=== PATIENT | female | born 1985 | race Caucasian/White ===

== ENCOUNTER 2016-11-06 18:16 | Emergency (ER) | payer OTHER ==
[2016-11-06 18:35] VITALS: BP 139/84
--- NOTE | 2016-11-06 18:50 | UC ---
Throat Pain/Nasal [place] HPI - HPI Summary HPI Summary: worsening sinus pain and congestion over the past 6 weeks - History of Current Complaint Chief Complaint: UCHeadache Stated Complaint: SINUS ISSUE Time Seen by Provider: 11/06/16 18:39 Hx Obtained From: Patient Hx Last Menstrual Period: <1 WEEK AGO (IUD) ?: No Onset/Duration: Sudden Onset, Lasting Weeks - 6, Still Present Severity: Moderate Pain Scale Used: 0-10 Numeric Cough: None Associated Signs & Symptoms: Positive: Sinus Discomfort, Nasal Discharge, Fever - Allergies/Home Medications Allergies/Adverse Reactions: Allergies Allergy/AdvReac Type Severity Reaction Status Date / Time Amoxicillin Allergy Severe swelling Verified 11/06/16 18:35 of throat Penicillins Allergy Severe Swelling Verified 11/06/16 18:35 Of Face,Lips,& Throat Codeine [From Robitussin-AC] Allergy Intermediate itchy/scratchy Verified 18:35 throat Ethanol [From Robitussin-AC] Allergy Intermediate itchy/scratchy Verified 18:35 throat Guaifenesin Allergy Intermediate itchy/scratchy Verified 11/06/16 18:35 [From Robitussin-AC] throat Doxycycline Allergy Pain Verified 11/06/16 18:35 Morphine Allergy Swelling Verified 11/06/16 18:35 Erythromycin AdvReac Severe swelling Verified 11/06/16 18:35 of face, throat' Ibuprofen AdvReac Severe CAN'T TAKE Verified 11/06/16 18:35 BECAUSE OF CROHN'S Azithromycin AdvReac Mild Nausea Verified 11/06/16 18:35 Home Medications: Home Medications Ibuprofen TAB* [Advil TAB*] 600 mg PO PRN 11/06/16 [History] clonazePAM TAB(*) [Klonopin TAB(*)] PRN 11/06/16 [History] PMH/Surg Hx/FS Hx/Imm Hx Previously Healthy: No Endocrine History Of: Reports: Thyroid Disease - during Denies: Diabetes Cardiovascular History Of: Denies: Cardiac Disorders, Hypertension, Congestive Heart Failure Respiratory History Of: Denies: COPD, Asthma GI/ History Of: Reports: Kidney Stones, Renal Disease - MULTIPLE BOUTS OF RENAL LITHIASES Denies: Ulcer - Surgical History Surgical History: Yes Surgery Procedure, Year, and Place: APPENDECTOMY, CYST ON URETHRA, left KIDNEY STONE left Kidney ABLATION X 3 - Family History Known Family History: Positive: Cardiac Disease, Diabetes, Respiratory Disease - Social History Occupation: Unemployed Lives: With Family Alcohol Use: None Substance Use Type: None Smoking Status (MU): Current Every Day Smoker Type: Cigarettes Amount Used/How Often: 1/2 PPD Length of Time of Smoking/Using Tobacco: 10 Years Have You Smoked in the Last Year: Yes - Immunization History Most Recent Influenza Vaccination: 2014 Most Recent Tetanus Shot: 2009 Most Recent Pneumonia Vaccination: never Hx Tetanus, Diphtheria Vaccination: Yes Vaccination Up to Date: Yes Review of Systems Constitutional: Chills, Fatigue Skin: Negative Eyes: Negative ENT: Nasal Discharge Respiratory: Negative Cardiovascular: Negative Gastrointestinal: Negative Genitourinary: Negative Motor: Negative Neurovascular: Negative Musculoskeletal: Negative Neurological: Negative Psychological: Negative All Other Systems Reviewed And Are Negative: Yes Physical Exam Triage Information Reviewed: Yes Appearance: Well-Nourished, Ill-Appearing - mild, Pain Distress - mild Vital Signs: Initial Vital Signs Temp 96.9 F 11/06/16 18:32 Pulse 65 11/06/16 18:32 Resp 16 11/06/16 18:32 BP 139/84 11/06/16 18:32 Pulse Ox 100 11/06/16 18:32 Vital Signs Reviewed: Yes Eye Exam: Normal Eyes: Positive: Conjunctiva Clear ENT Exam: Normal ENT: Positive: Normal ENT inspection, Hearing grossly normal, Pharynx normal, Nasal congestion, Nasal drainage. Negative: TMs normal, Tonsillar swelling, Tonsillar exudate, Trismus, Muffled/hoarse voice Neck exam: Normal Neck: Positive: Supple, Nontender, No Lymphadenopathy Respiratory Exam: Normal Respiratory: Positive: Chest non-tender, Lungs clear, Normal breath sounds, No respiratory distress, No accessory muscle use Cardiovascular Exam: Normal Cardiovascular: Positive: RRR, No Murmur, Pulses Normal, Brisk Capillary Refill Musculoskeletal Exam: Normal Musculoskeletal: Positive: Strength Intact, ROM Intact, No Edema Neurological Exam: Normal Neurological: Positive: Alert, Muscle Tone Normal Psychological Exam: Normal Skin Exam: Normal Throat Pain/Nasal Course/Dx - Course Assessment/Plan: flonase, levoquin (chosen due to allergies to other antibiodics ) increase fluids, follow with pcp - Differential Dx/Diagnosis Differential Diagnosis/HQI/PQRI: Laryngitis, Otitis Media, Pharyngitis, Sinusitis, URI Provider Diagnoses: Acute Sinusitis Discharge - Discharge Plan Condition: Stable Disposition: HOME Prescriptions: DOXYcycline CAP(*) [DOXYcycline 100MG CAP(*)] 100 mg PO BID #20 cap Levofloxacin [Levaquin] 500 mg PO DAILY #10 tab Patient Education Materials: Sinusitis (ED), How to Use Nasal [place] (ED) Referrals: Carlos Gray MD [Primary Care Provider] - If Needed
== END 2016-11-06 18:55 | disposition home or self-care (01) ==
LOC: UCEAST 18:16
DX: J01.90 Acute sinusitis, unspecified (principal); Z88.5 Allergy status to narcotic agent; Z88.6 Allergy status to analgesic agent; Z88.1 Allergy status to other antibiotic agents; Z88.0 Allergy status to penicillin; Z88.8 Allergy status to other drugs, medicaments and biological substances; F17.210 Nicotine dependence, cigarettes, uncomplicated
CPT/HCPCS: 99212; G0463

== ENCOUNTER 2017-04-18 09:20 | Emergency (ER) | payer OTHER ==
[2017-04-18 09:33] VITALS: BP 122/79
--- NOTE | 2017-04-18 10:13 | UC ---
Cardiac HPI - HPI Summary HPI Summary: complaint of chest pain that started yesterday while she was cleaning and shampooing carpets thought it was her GERD because she was burping - drank a coke and chocolate milk with out relief this morning and the pain is in left side of chest and shoots into her arm constant aching pain nothing makes the pain better or worse denies shortness of breath, diaphoreis, dizziness, nausea denies anxiety but has had many stressful experiences in the last wekk daughter passes 09/2016- oldest daughter currently in counseling for PTSD - History of Current Complaint Hx Obtained From: Patient Chest Pain Location: Left Anterior Character: Dull/Aching, Heaviness Aggravating: Nothing Alleviating: Nothing - Risk Factors Cardiac Risk Factors: Smoking, Family History <Cata Arnold - Last Filed: 04/18/17 10:32> <Yodit Torres - Last Filed: 04/18/17 15:33> - History of Current Complaint Chief Complaint: UCChestPain Stated Complaint: CHEST PAIN Time Seen by Provider: 04/18/17 10:04 - Allergy/Home Medications Allergies/Adverse Reactions: Allergies Allergy/AdvReac Type Severity Reaction Status Date / Time Amoxicillin Allergy Severe swelling Verified 04/18/17 09:34 of throat Penicillins Allergy Severe Swelling Verified 04/18/17 09:34 Of Face,Lips,& Throat Codeine [From Robitussin-AC] Allergy Intermediate itchy/scratchy Verified 09:34 throat Ethanol [From Robitussin-AC] Allergy Intermediate itchy/scratchy Verified 09:34 throat Guaifenesin Allergy Intermediate itchy/scratchy Verified 04/18/17 09:34 [From Robitussin-AC] throat Doxycycline Allergy Pain Verified 04/18/17 09:34 Morphine Allergy Swelling Verified 04/18/17 09:34 Erythromycin AdvReac Severe swelling Verified 04/18/17 09:34 of face, throat' Ibuprofen AdvReac Severe CAN'T TAKE Verified 04/18/17 09:34 BECAUSE OF CROHN'S Azithromycin AdvReac Mild Nausea Verified 04/18/17 09:34 Home Medications: Home Medications ALPRAZolam TAB* [Xanax TAB*] 0.5 mg PO BID PRN 04/18/17 [History Confirmed 04/18] Escitalopram Oxalate [Lexapro 20 mg] 20 mg PO DAILY 04/18/17 [History Confirmed 04/18/17] Mesalamine [Asacol Hd] 800 mg PO TID 04/18/17 [History Confirmed 04/18/17] Pantoprazole Sodium 40 mg PO DAILY 04/18/17 [History Confirmed 04/18/17] PMH/Surg Hx/FS Hx/Imm Hx Previously Healthy: Yes - crohn's disease Endocrine History: Dyslipidemia GI/ History: Gastroesophageal Reflux - Surgical History Surgical History: Yes Surgery Procedure, Year, and Place: APPENDECTOMY, CYST ON URETHRA, left KIDNEY STONE left Kidney ABLATION X 3 - Family History Known Family History: Positive: Cardiac Disease - maternal grandmother and grandfather, Hypertension - mother, Diabetes, Respiratory Disease - Social History Occupation: Employed Full-time Lives: With Family Alcohol Use: None Substance Use Type: None Smoking Status (MU): Current Every Day Smoker Type: Cigarettes Amount Used/How Often: 1/2 PPD Length of Time of Smoking/Using Tobacco: 10 Years Have You Smoked in the Last Year: Yes Cessation Counseling: Patient Advised to Stop - Immunization History Most Recent Influenza Vaccination: 2014 Most Recent Tetanus Shot: 2009 Most Recent Pneumonia Vaccination: never Hx Tetanus, Diphtheria Vaccination: Yes Vaccination Up to Date: Yes <Cata Arnold - Last Filed: 04/18/17 10:32> Review of Systems Constitutional: Negative Skin: Negative Eyes: Negative ENT: Negative Respiratory: Negative Cardiovascular: Chest Pain Gastrointestinal: Negative Genitourinary: Negative Motor: Negative Neurovascular: Negative Musculoskeletal: Other: - left arm pain Neurological: Negative Psychological: Anxious All Other Systems Reviewed And Are Negative: Yes <Cata Arnold - Last Filed: 04/18/17 10:32> Physical Exam Triage Information Reviewed: Yes Appearance: No Pain Distress, Well-Nourished Vital Signs: Initial Vital Signs Temp 98.7 F 04/18/17 09:25 Pulse 77 04/18/17 09:25 Resp 16 04/18/17 09:25 BP 122/79 04/18/17 09:25 Pulse Ox 98 04/18/17 09:25 Vital Signs Reviewed: Yes Eyes: Positive: Conjunctiva Clear ENT: Positive: Pharynx normal, TMs normal Neck: Positive: Supple, No Lymphadenopathy Respiratory: Positive: Lungs clear, Normal breath sounds, No respiratory distress, No accessory muscle use Cardiovascular: Positive: RRR, No Murmur, Pulses Normal, Brisk Capillary Refill Abdomen Description: Positive: Nontender, No Organomegaly, Soft Bowel Sounds: Positive: Present Musculoskeletal: Positive: No Edema, Other: - left side of chest- point tenderness throughout pectoral muscle Neurological: Positive: Alert Psychological Exam: Normal Skin Exam: Normal <Cata Arnold - Last Filed: 04/18/17 10:32> Vital Signs: Initial Vital Signs Temp 98.7 F 04/18/17 09:25 Pulse 77 04/18/17 09:25 Resp 16 04/18/17 09:25 BP 122/79 04/18/17 09:25 Pulse Ox 98 04/18/17 09:25 <Yodit Torres - Last Filed: 04/18/17 15:33> Diagnostics - EKG Cardiac Rhythm: Sinus: Normal Ectopy: None <Mirian Arnoldny - Last Filed: 04/18/17 10:32> - Assessment/Plan Course Of Treatment: exam completed. ECG- shows NSR no ectopy. left chest wall pain reproducible with palpation and movement of left arm. no associated symptoms with cardiac comprimise. discussed ECG not complete cardiac workup and pt states understanding and wants to leave d/t daughter medical appointment. will treat with acetaminophen for muscle pain- pt refuses muscle relaxer. discussed PTSD and anxiety and encouraged pt to take xanax as prescribed for anxiety - Differential Diagnoses - Chest Pain Differential Diagnosis/HQI/PQRI: Acute MD, Lower Respiratory Infection - Clinical Impression Provider Diagnoses: chest wall pain -left pectoral muscle sprain <Cata Arnold - Last Filed: 04/18/17 10:32> Discharge <Cata Arnold - Last Filed: 04/18/17 10:32> <Yodit Torres - Last Filed: 04/18/17 15:33> - Discharge Plan Condition: Stable Disposition: AGAINST MEDICAL ADVICE Patient Education Materials: Musculoskeletal Pain (ED) Referrals: Carlos Gray MD [Primary Care Provider] - Additional Instructions: Take acetaminophen for pain increase rest and fluids If your chest pain returns please go to the emergency department Please review your discharge instructions. If your symptoms do not improve please call your primary care provider or return to urgent care. Attestation Statement User Type: Provider - I was available for consult. This patient was seen by the ERICKSON. The patient was not presented to, seen by, or examined by me. -Carolyn <Yodit Torres - Last Filed: 04/18/17 15:33>
[2017-04-18] MEDS ORDERED: Acetaminophen TAB* 325 MG PO ONE (10:20)
== END 2017-04-18 10:56 | disposition left against medical advice (07) ==
LOC: UCEAST 09:20
DX: R07.89 Other chest pain (principal); S29.011A Strain of muscle and tendon of front wall of thorax, initial encounter; K21.9 Gastro-esophageal reflux disease without esophagitis; F43.10 Post-traumatic stress disorder, unspecified; K50.90 Crohn's disease, unspecified, without complications; E78.5 Hyperlipidemia, unspecified; Z72.0 Tobacco use
CPT/HCPCS: 93005; 99212; A9270-GY; G0463

== ENCOUNTER 2017-07-31 11:35 | Emergency (ER) | payer OTHER ==
[2017-07-31 11:50] VITALS: BP 114/79
--- NOTE | 2017-07-31 12:17 | UC ---
Back Pain HPI - HPI Summary HPI Summary: Patient presents with complaints of three week onset midline lumbar pain that radiates to the right lower lumbar and medial buttock, and recently down the right leg to the knee. 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 She was initially seen and evaluate by her PCP who RX Tramadol which makes her nauseous so she stopped taking them, and baclofen. She states that the pain is not getting any better. She denies incontinence of bowel or bladder, lower extremity weakness. She present today for further evaluation and treatment. She also complains of sinus pain, pressure, and plugging. She complains states sinus pain and headache with sinus pressure she states these symptoms are consistent with sinus infections she has had in the past. - History of Current Complaint Chief Complaint: UCBackPain Stated Complaint: BACK PAIN HEADACHE SINUS ISSUE Time Seen by Provider: 07/31/17 11:54 Hx Obtained From: Patient Hx Last Menstrual Period: Mirena ?: No Onset/Duration: Sudden Onset, Lasting Weeks Timing: Constant Severity Initially: Moderate Severity Currently: Moderate Back Pain: Is Diffuse, Radiates To - right buttock and leg. Character: Sharp, Dull, Aching, Spasmodic, Stiffness Aggravating Factor(s): Movement, Lifting, Bending, Walking Alleviating Factor(s): Rest Associated Signs And Symptoms: Positive: Negative - Risk Factors AAA Risk Factors: Negative TAD Risk Factors: Negative Cauda Equina Risk Factors: Negative Epidural Abscess Risk Factors: Negative - Allergies/Home Medications Allergies/Adverse Reactions: Allergies Allergy/AdvReac Type Severity Reaction Status Date / Time Amoxicillin Allergy Severe swelling Verified 04/18/17 09:34 of throat Penicillins Allergy Severe Swelling Verified 04/18/17 09:34 Of Face,Lips,& Throat Codeine [From Robitussin-AC] Allergy Intermediate itchy/scratchy Verified 09:34 throat Ethanol [From Robitussin-AC] Allergy Intermediate itchy/scratchy Verified 09:34 throat Guaifenesin Allergy Intermediate itchy/scratchy Verified 04/18/17 09:34 [From Robitussin-AC] throat Doxycycline Allergy Pain Verified 04/18/17 09:34 Morphine Allergy Swelling Verified 04/18/17 09:34 Erythromycin AdvReac Severe swelling Verified 04/18/17 09:34 of face, throat' Ibuprofen AdvReac Severe CAN'T TAKE Verified 04/18/17 09:34 BECAUSE OF CROHN'S Azithromycin AdvReac Mild Nausea Verified 04/18/17 09:34 Home Medications: Home Medications Baclofen TAB* [Lioresal TAB*] 1 tab PO Q8HR PRN 07/31/17 [History Confirmed ] traMADol TAB* [Ultram*] 2 tab PO Q12HR PRN 07/31/17 [History Confirmed 07/31/17] PMH/Surg Hx/FS Hx/Imm Hx Previously Healthy: Yes Psychological History: Depression - Surgical History Surgical History: Yes Surgery Procedure, Year, and Place: APPENDECTOMY, CYST ON URETHRA, left KIDNEY STONE left Kidney ABLATION X 3 - Family History Known Family History: Positive: Cardiac Disease - maternal grandmother and grandfather, Hypertension - mother, Diabetes, Respiratory Disease - Social History Occupation: Works From/At Home Lives: With Family Alcohol Use: None Substance Use Type: None Smoking Status (MU): Heavy Every Day Tobacco Smoker Type: Cigarettes Amount Used/How Often: 1 ppd Length of Time of Smoking/Using Tobacco: 10 Years Have You Smoked in the Last Year: Yes - Immunization History Most Recent Influenza Vaccination: 2014 Most Recent Tetanus Shot: 2009 Most Recent Pneumonia Vaccination: never Hx Tetanus, Diphtheria Vaccination: Yes Vaccination Up to Date: Yes Review of Systems Constitutional: Negative Skin: Negative Eyes: Negative ENT: Sinus Congestion, Sinus Pain/Tenderness Respiratory: Negative Cardiovascular: Negative Gastrointestinal: Negative Genitourinary: Negative Motor: Negative Neurovascular: Negative Musculoskeletal: Decreased ROM, Edema, Myalgia Neurological: Negative Psychological: Negative All Other Systems Reviewed And Are Negative: Yes Physical Exam Triage Information Reviewed: Yes Appearance: Well-Appearing Vital Signs: Initial Vital Signs Temp 98.8 F 07/31/17 11:39 Pulse 82 07/31/17 11:39 Resp 16 07/31/17 11:39 BP 114/79 07/31/17 11:39 Pulse Ox 98 07/31/17 11:39 Eye Exam: Normal ENT Exam: Normal ENT: Positive: Nasal congestion, Other: - tenderness to palpation over the maxillary sinuses. Dental Exam: Normal Neck exam: Normal Neck: Positive: 1 Respiratory Exam: Normal Cardiovascular Exam: Normal Abdominal Exam: Normal Musculoskeletal Exam: Normal Musculoskeletal: Positive: Strength Limited @, ROM Limited @, Other: - Back inspection; vertabra are in good aligment with no step-offs of deformities, no arera of eccymosis, erythma or edema. Palpation; tenderness midline at L4-L5, and right medial buttock. ROM; slow guarded movments with position changes. flexion noted approximatly for 30 degress, cannot rotate right or left. Patellar reflexes equal brisk 2+, sensory intact. gait heel-toe. Neurological Exam: Normal Psychological Exam: Normal Skin Exam: Normal Back Pain Course/Dx - Course Course Of Treatment: Patient presents three week s/p traumatic injury of the lumbar spine, xrays were obtained and read by the radiologists as negative, but if symtpoms persist repeate imaging in indicated. Patient was neuro-vasc intact. PT was ordered. Pain managed with baclofen and tyelnol. I recommend follow up with PCP in two days. She also presented with clincial findings consistent with sinusitis and was treated with Bactrim 1 tablet twice daily for 10 days. - Differential Dx/Diagnosis Differential Diagnosis/HQI/PQRI: Strain, Sprain Provider Diagnoses: Acute low back pain Discharge - Discharge Plan Condition: Stable Disposition: HOME Prescriptions: Methylprednisolone [Medrol Dosepak 4 MG*] 1 mg PO .SEE ARIANA INSTRUCTION #1 tab Sulfamethox/Trimethoprim DS* [Bactrim DS 800/160 TAB*] 1 tab PO BID #20 tab Patient Education Materials: Sinusitis (ED), Low Back Strain (ED), Acute Low Back Pain (ED), Lumbar Radiculopathy (ED) Referrals: Carlos Gray MD [Primary Care Provider] -
--- NOTE | 2017-07-31 12:43 | RAD ---
Indication: Back pain post fall 3 weeks ago. Comparison: June 12, 2016 CT. Technique: AP, lateral, and oblique views lumbar sacral spine. Report: Alignment is anatomic. No cortical disruption or trabecular impaction to indicate a vertebral body fracture. Oblique views without evidence for spondylolysis. Preserved disc spaces. Unremarkable paraspinal soft tissue contours. Incidental note of a 4 mm calcification at the level of the upper pole of the LEFT kidney likely a renal stone. Correlation with prior CT limited due to presence of IV contrast. IUD noted. IMPRESSION: No radiographic abnormality of the lumbar sacral spine.
== END 2017-07-31 13:00 | disposition home or self-care (01) ==
LOC: UCEAST 11:35
DX: M54.5 Low back pain (principal); F17.210 Nicotine dependence, cigarettes, uncomplicated; Z88.6 Allergy status to analgesic agent; Z88.1 Allergy status to other antibiotic agents; Z88.5 Allergy status to narcotic agent; Z88.0 Allergy status to penicillin; Z88.8 Allergy status to other drugs, medicaments and biological substances
CPT/HCPCS: 72110; 99212; G0463

== ENCOUNTER 2017-12-28 13:37 | Emergency (ER) | payer OTHER ==
[2017-12-28 13:57] VITALS: BP 117/67
--- OUTSIDE RECORDS SUMMARY | 2017-12-28 14:14 | XMS REPORT ---
:1985 External Reference #:[id number] Author Organization [facility] [employer] [employer] Address [address] [address] Phone [phone] Care Team Providers Name Role Phone Carlos Gray III, MD Primary Care Physician Unavailable Payers Type Date Identification Numbers Payment Provider Subscriber Commercial Policy Number: [id number] [employer] Name: [id number] [address] PayID: [id number] [place] [address] Advance Directives Type Date Description Status Comment Other Directive 10/13/2017 Health Care Proxy Current and Verified Problems Date Description Provider Status Onset: 10/29/2011 Head and neck swelling Carlos Gray M.D. Active Family History Date Family Member(s) Problem(s) Comments General Thyroid Disease General Suicide General Diabetes, Insulin Dependent General Asthma Father due to Suicide () Siblings 8 Siblings ; 3 full siblings, the others DM, 1 with ?kidney problem, with mom in common. 1 full "bone" problem. (+) half sister with sister with hyperthyroidism. 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 fewer cigarettes/day) Began age 13 ETOH Use Rarely consumes alcohol ETOH Use Denies alcohol use Smoking Light tobacco smoker (10 or fewer cigarettes/day) Exercise Type/Frequency 01/25/2014 Exercises regularly runs a couple days weekly; walks most days Allergies, Adverse Reactions, Alerts Date Description Reaction Status Severity Comments 01/30/2012 Penicillin hives active 01/30/2012 Zithromax vomiting active 01/30/2012 Erythromycin active vomiting 10/13/2015 Doxycycline active nausea 05/15/2016 Morphine active swelling and hives 08/15/2009 NKDA inactive Medications Medication Date Status Form Strength Qnty SIG Indications Ordering Provider Alprazolam 11/13/ Active Tablets 1mg 30tab take 10/07-1 F41.3 Sen 2017 s tablet HOLLY Herbert twice daily as needed Hydroxyzine HCL 09/10/ Active Tablets 25mg 60tab 1-2 L29.8 Sen 2016 s tablets by HOLLY Herbert mouth every 6-8 hours as needed Lexapro 01/08/ Active Tablets 20mg 30tab 1 by mouth F41.3 Sen 2016 s every day HOLLY Herbert Flonase Allergy 10/13/ Active Suspension 50mcg/Act 16uni spray 1 J01.90 Sen Relief 2015 ts spray in HOLLY Herbert each nostril twice daily Pantoprazole 08/01/ Active Tablets DR 40mg 30tab 1 by mouth K20.9 Sen Sodium 2014 s every day HOLLY Herbert Tylenol / Active Tablets 325mg as needed Unknown 0000 Mirena / Active IUD placed Unknown 0000 2011 per pt Asacol HD / Active Tablets DR 800mg 1 tab po Bonilla, 0000 three Olivia times Petra, daily PA-C Benadryl / Active Tablets 25mg 1-2 tabs Unknown Allergy 0000 twice a day for itching Bupropion HCL / Active Tablets ER 150mg 2 by mouth Unknown ER (XL) 0000 24HR every day Levofloxacin 08/11/ Hx Tablets 500mg 7tabs one by J01.90 Sen 2016 - mouth HOLLY Herbert 08/18/ daily for 2016 7 days Baclofen 07/25/ Hx Tablets 10mg 60tab take 10/07 Sen 2016 - s tab every HOLLY Herbert 08/11/ 8 hours as 2016 needed for muscle spasm Soma 07/10/ Hx Tablets 250mg 21tab 1 tab by M54.5 Sen 2016 - s mouth HOLLY Herbert 07/22/ three 2017 times a day and at bedtime as needed muscle pain and stiffness Tramadol HCL 07/10/ Hx Tablets 50mg 28tab 1-2 M54.5 Sen 2017 - s tablets HOLLY Herbert 07/22/ every 12 2016 hours as needed for pain. Clonazepam 06/10/ Hx Tablets 0.5mg 15tab 1/2-1 tab F41.9 Remus 2017 - s twice a HOLLY Herbert 06/24/ day as 2017 needed anxiety Levofloxacin 03/27/ Hx Tablets 500mg 7tabs one by J01.90 Remus 2017 - mouth HOLLY Herbert 04/03/ daily for 2016 7 days Temazepam 03/13/ Hx Capsules 15mg 14cap one Remus 2016 - s capsule by HOLLY Herbert 05/08/ mouth at 2016 bedtime as needed for insomnia Buspirone HCL 02/05/ Hx Tablets 5mg 60tab one tablet F41.9 Remus 2016 - s twice HOLLY Herbert 03/07/ daily 2017 Lexapro 11/13/ Hx Tablets 10mg 30tab 1 by mouth F41.3 Remus 2017 - s every day HOLLY Herbert 2016 Xanax 11/13/ Hx Tablets 0.5mg 45tab 1-2 F41.3 Remus 2016 - s tablets HOLLY Herbert 11/13/ twice 2017 daily as needed anxiety Oseltamivir 10/22/ Hx Capsules 75mg 10cap 1 po twice J20.9 Carlos E. Phosphate 2016 - a day for Marina, 12/11/ days M.D. 2017 Klonopin 10/11/ Hx Tablets 0.5mg 30tab 1/2-1 F41.3 Remus 2016 - s tablet by HOLLY Herbert 11/13/ mouth 2017 twice a day as needed anxiety Gabapentin 10/10/ Hx Capsules 100mg 30cap take 1 to Remus 2016 s 3 capsules HOLLY Herbert 10/22/ by mouth 2016 at night Trazodone HCL 09/09/ Hx Tablets 50mg 30tab 1-2 Remus 2015 - s tablets at HOLLY Herbert 10/10/ bedtime as 2017 needed. Ondansetron 06/17/ Hx Tablets 4mg 30tab dissolve R11.2 Sen 2015 - Dispers s one tablet HOLLY Herbert 06/25/ orally 2016 every 8 hours as needed for nausea. Guaifenesin ER 10/13/ Hx Tablets ER 600mg 20tab 1 by mouth J01.90 Haylee 2015 - HR s twice a Andriy, 05/15/ day M.D. 2015 Levofloxacin 10/13/ Hx Tablets 500mg 10tab one by J01.90 Haylee 2015 - s mouth Andriy, 01/14/ daily for .D. 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 2012 06/28/ Hx Tablets 14-0.4mg Carlos Olson Complete 2010 Dereck Gray, M.D. 2011 Tylenol 06/28/ Hx Liquid 500mg/15M Carlos Olson 2010 Dereck Gray, 09/06/ M.D. 2012 Day Time 08/15/ Hx Capsules 10-5-325m prn Carlos Olson Cold/Flu Relief 2008 - shakila Gray, 10/30/ M.D. 2010 Ibuprofen 08/15/ Hx Tablets 200mg 20tab prn Carlos Olson 2008 - s Marina, M.D. 2010 Ibuprofen / Hx Capsules 200mg prn Unknown 0000 - 2012 Cefdinir / Hx Capsules 300mg 20cap 1 po bid Unknown 0000 - s 2013 Prednisone / Hx Tablets 20mg 20tab Take 2 Unknown 0000 - s tablets po 01/25/ bid for 5 2013 days. Hydrocodone/Elias / Hx Tablets 5-500mg 100ta one or two Unknown taminophen 0000 - bs po every 4 01/25/ - 6 hours 2013 prn pain Asacol HD / Hx Tablets DR 800mg 3 tabs Unknown 0000 - three 08/01/ times a 2014 day Azathioprine / Hx Tablets 50mg 90tab 1/2 tab by Unknown 0000 - s mouth 08/01/ every day 2014 Ciprofloxacin / Hx Tablets 500mg Unknown HCL 0000 - 2015 Azathioprine / Hx Tablets 50mg 1 tab Bonilla, 0000 - daily Olivia Petra 2015 VALDO-Kenia Ciprofloxacin / Hx Tablets 250mg one by Unknown HCL 0000 - mouth 10/11/ twice a 2016 day for 5 days Oxycodone HCL / Hx Tablets 5mg 1-2 by Unknown 0000 - mouth four 10/11/ times a 2016 day as needed Mesalamine / Hx Tablets DR 800mg Take One Unknown 0000 - Tablet By 2016 Three Times A Day Lunesta / Hx Tablets 1mg unknown Unknown 0000 - dose 2016 Bupropion HCL / Hx Tablets ER 150mg 60tab 2 by mouth Unknown ER (XL) 0000 - 24HR s every day 2017 Medications Administered in Office Medication Date Status Form Strength Qnty SIG Indications Ordering Provider Influenza Administered Injection Unknown Virus Vaccine 014 Immunizations CPT Code Status Date Vaccine Lot # [id number] Given 10/29/2011 Tdap - Tetanus/Diptheria/Acellular Pertussis [id number] Given 06/28/2011 Influenza Virus 3Yrs & Over [id number] Vital Signs Date Vital Result Comment 12/22/2017 Weight 173.50 lb Heart Rate 80 /min BP Systolic 118 mmHg BP Diastolic 66 mmHg Body Temperature 97.2 F O2 % BldC Oximetry 989 % 11/13/2017 Weight 169.50 lb Heart Rate 69 /min BP Systolic Sitting 118 mmHg BP Diastolic Sitting 78 mmHg O2 % BldC Oximetry 96 % 10/13/2017 Weight 170.00 lb Heart Rate 73 /min BP Systolic 118 mmHg BP Diastolic 80 mmHg Body Temperature 97.9 F O2 % BldC Oximetry 95 % 09/10/2017 Height 59 inches 4'11" Weight 164.00 lb Heart Rate 81 /min BP Systolic Sitting 118 mmHg BP Diastolic Sitting 74 mmHg Body Temperature 97.1 F O2 % BldC Oximetry 96 % BMI (Body Mass Index) 33.1 kg/m2 08/11/2017 Weight 160.50 lb Heart Rate 74 /min BP Systolic Sitting 122 mmHg BP Diastolic Sitting 80 mmHg O2 % BldC Oximetry 97 % 07/10/2017 Weight 160.00 lb Heart Rate 76 /min BP Systolic Sitting 124 mmHg BP Diastolic Sitting 80 mmHg O2 % BldC Oximetry 98 % 06/10/2017 Weight 162.00 lb Heart Rate 71 /min BP Systolic 110 mmHg BP Diastolic 60 mmHg O2 % BldC Oximetry 98 % 05/08/2017 Heart Rate 66 /min BP Systolic Sitting 126 mmHg BP Diastolic Sitting 76 mmHg O2 % BldC Oximetry 98 % 03/27/2017 Weight 153.00 lb Heart Rate 71 /min BP Systolic Sitting 114 mmHg BP Diastolic Sitting 72 mmHg Body Temperature 98.1 F O2 % BldC Oximetry 96 % 03/07/2017 Height 97.6 inches 8'1.60" Weight 153.75 lb Heart Rate 72 /min BP Systolic 120 mmHg BP Diastolic 68 mmHg O2 % BldC Oximetry 92 % BMI (Body Mass Index) 11.3 kg/m2 02/05/2017 Weight 154.75 lb Heart Rate 68 /min BP Systolic 102 mmHg BP Diastolic 66 mmHg Body Temperature 98.1 F O2 % BldC Oximetry 96 % 01/08/2017 Weight 150.00 lb Heart Rate 76 /min BP Systolic Sitting 108 mmHg BP Diastolic Sitting 54 mmHg Body Temperature 98.2 F O2 % BldC Oximetry 98 % 12/11/2016 Weight 149.00 lb Heart Rate 84 /min BP Systolic Sitting 104 mmHg BP Diastolic Sitting 68 mmHg O2 % BldC Oximetry 98 % 11/13/2016 Height 60 inches 5'0" Weight 147.00 lb Heart Rate 86 /min BP Systolic Sitting 124 mmHg BP Diastolic Sitting 86 mmHg O2 % BldC Oximetry 98 % BMI (Body Mass Index) 28.7 kg/m2 10/22/2016 Weight 149.00 lb Heart Rate 98 /min BP Systolic Sitting 126 mmHg BP Diastolic Sitting 74 mmHg Body Temperature 98.7 F O2 % BldC Oximetry 98 % 10/11/2016 Weight 146.00 lb Heart Rate 84 /min BP Systolic Sitting 124 mmHg BP Diastolic Sitting 80 mmHg Respiratory Rate 15 /min Body Temperature 98.5 F O2 % BldC Oximetry 98 % 06/17/2016 Height 60 inches 5'0" Weight 147.75 lb Heart Rate 83 /min BP Systolic 110 mmHg BP Diastolic 78 mmHg Body Temperature 96.9 F O2 % BldC Oximetry 95 % BMI (Body Mass Index) 28.9 kg/m2 05/15/2016 Weight 148.00 lb with shoes Heart Rate 77 /min BP Systolic Sitting 108 mmHg BP Diastolic Sitting 82 mmHg Body Temperature 97.8 F O2 % BldC Oximetry 99 % 02/13/2016 Weight 150.00 lb Heart Rate 81 /min BP Systolic Sitting 116 mmHg BP Diastolic Sitting 78 mmHg Body Temperature 98.1 F 01/15/2016 Height 59 inches 4'11" Weight 150.00 lb Heart Rate 95 /min BP Systolic Sitting 114 mmHg BP Diastolic Sitting 64 mmHg Respiratory Rate 16 /min Body Temperature 98.6 F O2 % BldC Oximetry 96 % BMI (Body Mass Index) 30.3 kg/m2 10/13/2015 Weight 150.75 lb Heart Rate 79 /min BP Systolic Sitting 116 mmHg BP Diastolic Sitting 81 mmHg Body Temperature 98.8 F O2 % BldC Oximetry 98 % 08/01/2015 Height 59 inches 4'11" Weight 152.00 lb Heart Rate 97 /min BP Systolic 100 mmHg BP Diastolic 70 mmHg Body Temperature 98.9 F O2 % BldC Oximetry 98 % BMI (Body Mass Index) 30.7 kg/m2 01/25/2014 Weight 149.00 lb Heart Rate 78 /min BP Systolic Sitting 108 mmHg BP Diastolic Sitting 72 mmHg 09/06/2013 Height 59 inches 4'11" Weight 145.00 lb Heart Rate 96 /min BP Systolic Sitting 110 mmHg BP Diastolic Sitting 88 mmHg Body Temperature 97.9 F BMI (Body Mass Index) 29.3 kg/m2 01/30/2012 Weight 140.00 lb Heart Rate 78 /min BP Systolic Sitting 122 mmHg BP Diastolic Sitting 84 mmHg 10/29/2011 Height 58.5 inches 4'10.50" Weight 134.75 lb Heart Rate 80 /min BP Systolic Sitting 118 mmHg BP Diastolic Sitting 70 mmHg BMI (Body Mass Index) 27.7 kg/m2 07/10/2011 Height 58.5 inches 4'10.50" Weight 158.00 lb Heart Rate 100 /min BP Systolic Sitting 130 mmHg BP Diastolic Sitting 68 mmHg BMI (Body Mass Index) 32.5 kg/m2 06/28/2011 Height 58.75 inches 4'10.75" Weight 154.00 lb Heart Rate 96 /min BP Systolic Sitting 114 mmHg BP Diastolic Sitting 66 mmHg BMI (Body Mass Index) 31.4 kg/m2 05/14/2011 Weight 147.00 lb Heart Rate 90 /min BP Systolic Sitting 116 mmHg BP Diastolic Sitting 70 mmHg 10/30/2010 Weight 143.00 lb Heart Rate 76 /min BP Systolic Sitting 120 mmHg BP Diastolic Sitting 82 mmHg O2 % BldC Oximetry 99 % 08/15/2009 Height 58.5 inches 4'10.50" Weight 141.00 lb Heart Rate 76 /min BP Systolic Sitting 102 mmHg BP Diastolic Sitting 62 mmHg BMI (Body Mass Index) 29.0 kg/m2 Results Test Date Test Result H/L Range Note CBC Auto Diff 06/12/2016 White Blood Count 12.9 10^3/uL High 3.5-10.8 Red Blood Count 4.89 10^6/uL 4.0-5.4 Hemoglobin 14.5 g/dL 12.0-16.0 Hematocrit 43 % 35-47 Mean Corpuscular Volume 88 fL 80-97 Mean Corpuscular Hemoglobin 30 pg 27-31 Mean Corpuscular HGB Conc 34 g/dL 31-36 Red Cell Distribution Width 13 % 10.5-15 Platelet Count 218 10^3/uL 150-450 Mean Platelet Volume 9 um3 7.4-10.4 Abs Neutrophils 11.6 10^3/uL High 1.5-7.7 Abs Lymphocytes 0.6 10^3/uL Low 1.0-4.8 Abs Monocytes 0.6 10^3/uL 0-0.8 Abs Eosinophils 0 10^3/uL 0-0.6 Abs Basophils 0.1 10^3/uL 0-0.2 Abs Nucleated RBC 0 10^3/uL Granulocyte % 90.0 % High 38-83 Lymphocyte % 4.9 % Low 25-47 Monocyte % 4.3 % 1-9 Eosinophil % 0.1 % 0-6 Basophil % 0.7 % 0-2 Nucleated Red Blood Cells % 0 Laboratory test finding 06/12/2016 HCG < 0.60 mIU/mL 1 Comp Metabolic Panel 06/12/2016 Sodium 135 mmol/L 133-145 Potassium 4.0 mmol/L 3.5-5.0 Chloride 106 mmol/L 101-111 Co2 Carbon Dioxide 22 mmol/L 22-32 Anion Gap 7 mmol/L 2-11 Glucose 93 mg/dL 70-100 Blood Urea Nitrogen 8 mg/dL 6-24 Creatinine 0.80 mg/dL 0.51-0.95 BUN/Creatinine Ratio 10.0 8-20 Calcium 9.3 mg/dL 8.6-10.3 Total Protein 6.9 g/dL 6.4-8.9 Albumin 4.2 g/dL 3.2-5.2 Globulin 2.7 g/dL 2-4 Albumin/Globulin Ratio 1.6 1-3 Total Bilirubin 0.40 mg/dL 0.2-1.0 Alkaline Phosphatase 65 U/L 34-104 Alt 48 U/L 7-52 Ast 61 U/L High 13-39 Egfr Non- 83.7 >60 Egfr 107.6 >60 2 Laboratory test finding 06/12/2016 Lipase 23 U/L 11.0-82.0 C Reactive Protein 66.07 mg/L High < 5.00 3 Lactic Acid 0.6 mmol/L 0.5-2.0 4 Blood Culture SEE RESULT BELOW 5 Laboratory test finding 05/16/2016 TSH (Thyroid Stim Horm) 1.46 mcIU/mL 0.34-5.60 CBC Auto Diff 05/16/2016 White Blood Count 9.6 10^3/uL 3.5-10.8 Red Blood Count 4.64 10^6/uL 4.0-5.4 Hemoglobin 13.8 g/dL 12.0-16.0 Hematocrit 41 % 35-47 Mean Corpuscular Volume 88 fL 80-97 Mean Corpuscular Hemoglobin 30 pg 27-31 Mean Corpuscular HGB Conc 34 g/dL 31-36 Red Cell Distribution Width 13 % 10.5-15 Platelet Count 274 10^3/uL 150-450 Mean Platelet Volume 9 um3 7.4-10.4 Abs Neutrophils 6.1 10^3/uL 1.5-7.7 Abs Lymphocytes 2.8 10^3/uL 1.0-4.8 Abs Monocytes 0.5 10^3/uL 0-0.8 Abs Eosinophils 0.1 10^3/uL 0-0.6 Abs Basophils 0.1 10^3/uL 0-0.2 Abs Nucleated RBC 0 10^3/uL Granulocyte % 63.3 % 38-83 Lymphocyte % 29.6 % 25-47 Monocyte % 5.2 % 1-9 Eosinophil % 1.2 % 0-6 Basophil % 0.7 % 0-2 Nucleated Red Blood Cells % 0 Comp Metabolic Panel 05/16/2016 Sodium 137 mmol/L 133-145 Potassium 3.9 mmol/L 3.5-5.0 Chloride 106 mmol/L 101-111 Co2 Carbon Dioxide 23 mmol/L 22-32 Anion Gap 8 mmol/L 2-11 Glucose 112 mg/dL High 70-100 Blood Urea Nitrogen 12 mg/dL 6-24 Creatinine 0.80 mg/dL 0.51-0.95 BUN/Creatinine Ratio 15.0 8-20 Calcium 9.4 mg/dL 8.6-10.3 Total Protein 6.4 g/dL 6.4-8.9 Albumin 4.3 g/dL 3.2-5.2 Globulin 2.1 g/dL 2-4 Albumin/Globulin Ratio 2.0 1-3 Total Bilirubin 0.40 mg/dL 0.2-1.0 Alkaline Phosphatase 49 U/L 34-104 Alt 14 U/L 7-52 Ast 16 U/L 13-39 Egfr Non- 83.7 >60 Egfr 107.6 >60 6 Laboratory test finding 05/16/2016 Vitamin B12 182 pg/mL 180-914 7 Vitamin D Total 25(Oh) 21.8 ng/mL Low 30-50 Laboratory test 11/13/2015 Urine Culture And SEE RESULT BELOW 8 finding Sensitivities Laboratory test 10/09/2015 Rapid Strep Molecular Negative Negative 9 finding Laboratory test 10/09/2015 Throat-Beta Strept SEE RESULT BELOW 10 finding Laboratory test 02/15/2015 Urine Culture SEE RESULT BELOW 11 finding Urine Culture And 12/30/2014 Urine Culture (SEE NOTE) 12 Sensitivities Urine Culture And 02/27/2014 Urine Culture (SEE NOTE) 13 Sensitivities Urine Culture And 11/23/2013 Urine Culture (SEE NOTE) 14 Sensitivities Laboratory test 08/16/2013 O P: (SEE NOTE) 15 finding Giardia/Cryptospor Screen GC/Chlamydia Amplified 08/16/2013 GC/Chlamydia Rna (SEE NOTE) 16 Rna Urine Culture And 08/16/2013 Urine Culture (SEE NOTE) 17 Sensitivities Stool Culture 08/16/2013 Stool Culture (SEE NOTE) 18 Laboratory test 08/10/2012 Magnesium 2.4 mg/dL 1.7-2.6 finding Basic Metabolic Panel 08/10/2012 Sodium 136 mmol/L 133-145 Potassium 4.5 mmol/L 3.5-5.0 Chloride 105 mmol/L 101-111 Co2 Carbon Dioxide 24.0 mmol/L 22-32 Anion Gap 7.0 mmol/L 2-11 Glucose 83 mg/dL 70-100 Blood Urea Nitrogen 9 mg/dL 6-24 Creatinine 0.70 mg/dL 0.50-1.40 BUN/Creatinine Ratio 12.9 8-20 Calcium 9.8 mg/dL 8.1-9.9 Egfr Non- 100.4 >60 Egfr 129.1 >60 19 Laboratory test finding 12/06/2011 Thyroxine Free 0.64 ng/dL 0.61-1.24 TSH 2.08 MIU/ML 0.34-5.60 Basic Metabolic Panel 12/06/2011 Sodium 137 mmol/L 135-145 Potassium 4.6 mmol/L 3.5-5.0 Chloride 105 mmol/L 101-111 Co2 (Carbon Dioxide) 25.0 mmol/L 22-32 Anion Gap 7.0 mmol/L 2-11 20 Glucose 86 mg/dL 70-100 BUN 9 mg/dL 6-24 Creatinine 0.7 mg/dL 0.50-1.40 One Over Creatinine 1.42 BUN/Creatinine Ratio 12.9 8-20 Calcium 9.5 mg/dL 8.1-9.9 eGFR Non- 101.1 > 60 eGFR 130.1 > 60 21 CBC Auto Diff 12/06/2011 White Blood Count 8.2 CUMM 4.8-10.8 Red Cell Count 4.26 CUMM 4.2-5.4 Hemoglobin 13.1 g/dL 12.0-16.0 Hematocrit 38 % 35-47 Mean Corpuscular Volume 90 um3 79-97 Mean Corpuscular Hemoglob 31 pg 27-31 Mean Corpuscular HGB Cone 34 g/dL 32-36 Redcell Distribution WDTH 14 % 10.5-15 Platelet Count 307 CUMM 150-450 Mean Platelet Volume 8.9 um3 7.4-10.4 22 Laboratory test finding 12/06/2011 Magnesium 2.2 mg/dL 1.7-2.6 Manual Differential 12/06/2011 Polysegmented Neutrophil 69 % 38-83 Lymphocyte 27 % 25-47 Monocyte 4 % 0-13 Absolute Neutrophil Count 5.6 RBC Morphology NORMAL Laboratory test finding 10/07/2011 Magnesium 1.6 mg/dL Low 1.7-2.6 Troponin-I 0.01 NG/ML 0-0.06 23 TSH 4.73 MIU/ML 0.34-5.60 Manual Differential 10/07/2011 Polysegmented Neutrophil 66 % 38-83 Lymphocyte 32 % 25-47 Monocyte 1 % 0-13 Eosinophil 1 % 0-6 Absolute Neutrophil Count 5.9 Anisocytosis SLIGHT CBC Auto Diff 10/07/2011 White Blood Count 9.0 CUMM 4.8-10.8 Red Cell Count 3.43 CUMM Low 4.2-5.4 Hemoglobin 10.7 g/dL Low 12.0-16.0 Hematocrit 31 % Low 35-47 Mean Corpuscular Volume 90 um3 79-97 Mean Corpuscular Hemoglob 31 pg 27-31 Mean Corpuscular HGB Cone 35 g/dL 32-36 Redcell Distribution WDTH 14 % 10.5-15 Platelet Count 262 CUMM 150-450 Mean Platelet Volume 8.2 um3 7.4-10.4 24 Comp Metabolic Panel 10/07/2011 Sodium 139 mmol/L 135-145 Potassium 2.9 mmol/L Low 3.5-5.0 Chloride 105 mmol/L 101-111 Co2 (Carbon Dioxide) 26.0 mmol/L 22-32 Anion Gap 8.0 mmol/L 2-11 25 Glucose 127 mg/dL High 70-100 BUN 11 mg/dL 6-24 Creatinine 0.6 mg/dL 0.50-1.40 One Over Creatinine 1.66 BUN/Creatinine Ratio 18.3 8-20 Calcium 10.0 mg/dL High 8.1-9.9 Total Protein 5.7 GM/DL Low 6.2-8.1 Albumin 2.8 GM/DL Low 3.6-5.4 Globulin 2.9 GM/DL 2-4 Albumin/Globulin Ratio 1.0 1-3 Bilirubin Total 0.5 mg/dL 0.4-1.5 26 Alkaline Phosphatase 81 U/L 30-110 Alt (SGPT) 15 U/L 14-54 Ast (Sgot) 20 U/L 12-42 eGFR Non- 120.8 > 60 eGFR 155.4 > 60 27 Throat-Beta Strept 08/08/2011 Throat-Beta Strep NF 28 Culture Urine Culture & 08/08/2011 Urine Culture NG 29 Sensitivi Sensitivi Laboratory test finding 07/10/2011 Thyroxine Free 0.64 ng/dL 0.61-1.24 TSH 0.82 MIU/ML 0.34-5.60 Basic Metabolic Panel 07/10/2011 Sodium 140 mmol/L 135-145 Potassium 3.6 mmol/L 3.5-5.0 Chloride 107 mmol/L 101-111 Co2 (Carbon Dioxide) 24.0 mmol/L 22-32 Anion Gap 9.0 mmol/L 2-11 30 Glucose 75 mg/dL 70-100 BUN 3 mg/dL Low 6-24 Creatinine 0.5 mg/dL Low 0.50-1.40 One Over Creatinine 2.00 BUN/Creatinine Ratio 6.0 Low 8-20 Calcium 9.7 mg/dL 8.1-9.9 eGFR Non- 149.1 > 60 eGFR 191.8 > 60 31 CBC Auto Diff 03/16/2011 White Blood Count 14.2 CUMM High 4.8-10.8 Red Cell Count 4.26 CUMM 4.2-5.4 Hemoglobin 13.0 g/dL 12.0-16.0 Hematocrit 38 % 35-47 Mean Corpuscular Volume 89 um3 79-97 Mean Corpuscular Hemoglob 31 pg 27-31 Mean Corpuscular HGB Cone 34 g/dL 32-36 Redcell Distribution WDTH 13 % 10.5-15 Platelet Count 292 CUMM 150-450 Mean Platelet Volume 8.2 um3 7.4-10.4 32 Manual Differential 03/16/2011 Polysegmented Neutrophil 76 % 38-83 Lymphocyte 21 % Low 25-47 Monocyte 3 % 0-13 Absolute Neutrophil Count 10.7 RBC Morphology NORMAL Comp Metabolic Panel 03/16/2011 Sodium 136 mmol/L 135-145 Potassium 3.8 mmol/L 3.5-5.0 Chloride 107 mmol/L 101-111 Co2 (Carbon Dioxide) 23.0 mmol/L 22-32 Anion Gap 6.0 mmol/L 2-11 33 Glucose 99 mg/dL 70-100 BUN 3 mg/dL Low 6-24 Creatinine 0.40 mg/dL Low 0.50-1.40 One Over Creatinine 2.50 BUN/Creatinine Ratio 7.5 Low 8-20 Calcium 9.4 mg/dL 8.1-9.9 Total Protein 6.3 GM/DL 6.2-8.1 Albumin 3.8 GM/DL 3.6-5.4 Globulin 2.5 GM/DL 2-4 Albumin/Globulin Ratio 1.5 1-3 Bilirubin Total 0.6 mg/dL 0.4-1.5 34 Alkaline Phosphatase 47 U/L 30-110 Alt (SGPT) 57 U/L High 14-54 Ast (Sgot) 49 U/L High 12-42 eGFR Non- 192.9 > 60 eGFR 248.1 > 60 35 Laboratory test finding 03/16/2011 Lipase 37 U/L 22-51 BHCG Quantitative 69891.0 MIU/ML High 0-5 36 C Reactive Protein 1.9 mg/dL High Less Than 0.5 Urinalysis 03/16/2011 Ua Color YELLOW Yellow Appearance-Urine CLEAR Clear Specific [place]-Ur 1.012 1.010-1.030 Esterase-Urine NEGATIVE Negative Nitrite NEGATIVE Negative Uhauyuoefbqh-Ge-QZE NEGATIVE Negative Protein-Urine NEGATIVE Negative PH-Urine 6.5 5-9 Blood-Urine NEGATIVE Negative Ketones-Urine 2+ Negative Bilirubin-Ur NEGATIVE Negative Glucose-Urine NEGATIVE Negative Laboratory test 03/16/2011 Stool For Blood POSITIVE Negative finding Surgical Pathology 03/14/2011 Surgical Pathology 37 <SEE NOTE> Wet Prep 03/14/2011 Wet Prep MODERATE (1 TO 4 38 <SEE NOTE> CBC Auto Diff 03/13/2011 White Blood Count 9.8 CUMM 4.8-10.8 Red Cell Count 3.99 CUMM Low 4.2-5.4 Hemoglobin 12.4 g/dL 12.0-16.0 Hematocrit 35 % 35-47 Mean Corpuscular Volume 89 um3 79-97 Mean Corpuscular Hemoglob 31 pg 27-31 Mean Corpuscular HGB Cone 35 g/dL 32-36 Redcell Distribution WDTH 12 % 10.5-15 Platelet Count 282 CUMM 150-450 Mean Platelet Volume 8.2 um3 7.4-10.4 Gran % 65.9 % 38-83 Lymph % 27.6 % 25-47 Mononuclear % 4.9 % 1-9 Eosinophil % 1.4 % 0-6 Basophil % 0.2 % 0-2 Abs Lymphs 2.7 1.0-4.8 Abs Mononuclear 0.5 0-0.8 Absolute Neutrophil Count 6.5 1.5-7.7 Abs Eosinophils 0.1 0-0.6 Abs Basophils 0 0-0.2 Protime 03/13/2011 Inr 0.95 0.82-1.17 39 Protime 11.2 SEC 10.2-14.8 40 Urinalysis W/Microscopic 03/13/2011 Ua Color YELLOW Yellow Appearance-Urine CLEAR Clear Specific Hudson-Ur 1.004 Low 1.010-1.030 Esterase-Urine TRACE Negative Nitrite NEGATIVE Negative Exsybchozbah-To-CSR NEGATIVE Negative Protein-Urine NEGATIVE Negative PH-Urine 6.0 5-9 Blood-Urine NEGATIVE Negative Ketones-Urine TRACE Negative Bilirubin-Ur NEGATIVE Negative Glucose-Urine NEGATIVE Negative WBC-Urine 3-5 0-5 RBC-Urine 1-3 0-2 Epith Cells-Ur FEW None Bacteria-Urine TRACE None Amorphous Sed-U TRACE None Crystals-Urine (SEE NOTE) None 41 Laboratory test finding 03/13/2011 CG Quantitative 47555.0 MIU/ML High 0 -5 42 Comp Metabolic Panel 03/13/2011 Sodium 137 mmol/L 135-145 Potassium 3.1 mmol/L Low 3.5-5.0 Chloride 106 mmol/L 101-111 Co2 (Carbon Dioxide) 23.0 mmol/L 22-32 Anion Gap 8.0 mmol/L 2-11 43 Glucose 100 mg/dL 70-100 BUN 10 mg/dL 6-24 Creatinine 0.50 mg/dL 0.50-1.40 One Over Creatinine 2.00 BUN/Creatinine Ratio 20.0 8-20 Calcium 9.5 mg/dL 8.1-9.9 Total Protein 6.1 GM/DL Low 6.2-8.1 Albumin 3.9 GM/DL 3.6-5.4 Globulin 2.2 GM/DL 2-4 Albumin/Globulin Ratio 1.8 1-3 Bilirubin Total 0.5 mg/dL 0.4-1.5 44 Alkaline Phosphatase 43 U/L 30-110 Alt (SGPT) 35 U/L 14-54 Ast (Sgot) 30 U/L 12-42 eGFR Non- 149.1 > 60 eGFR 191.8 > 60 45 Type & Screen 03/13/2011 Patient Blood Type AB POSITIVE Antibody Screen NEGATIVE Laboratory test 03/13/2011 PTT (Aptt) 28.1 25.15-38.53 finding Laboratory test 02/25/2011 BHCG Quantitative 77271.0 MIU/ML High 0-5 46 finding CBC No Diff 02/25/2011 White Blood Count 9.8 CUMM 4.8-10.8 Red Cell Count 4.27 CUMM 4.2-5.4 Hemoglobin 12.9 g/dL 12.0-16.0 Hematocrit 38 % 35-47 Mean Corpuscular Volume 89 um3 79-97 Mean Corpuscular Hemoglob 30 pg 27-31 Mean Corpuscular HGB Cone 34 g/dL 32-36 Redcell Distribution WDTH 13 % 10.5-15 Platelet Count 300 CUMM 150-450 Mean Platelet Volume 8.8 um3 7.4-10.4 Bruno Silva Comprehensive 11/26/2010 Ebv Vca Igg Positive Negative Ebv Vca Igm Negative Negative Ebna Positive Negative Ebv Interpretation SEE BELOW () 47 Laboratory test finding 11/26/2010 Monospot NEGATIVE Negative Ursc-1 07/09/2010 Ampicillin <=2 Amikacin <=2 Ciprofloxacin <=0.25 Ceftriaxone <=1 Cefazolin <=4 Nitrofurantoin <=16 Gentamicin <=1 Imipenem <=1 Levofloxacin <=0.12 Trimeth-Sulfa <=20 Ceftazidime <=1 Tigecycline <=0.5 Piperacillin/Tazobactam <=4 Urine Culture 07/09/2010 Urine Culture ESCHERICHIA COLI 48 Sensitivi Sensitivi Urine Culture & 02/01/2010 Urine Culture NF1 49 Sensitivi Sensitivi Urinalysis 02/01/2010 Ua Color YELLOW Yellow W/Microscopic Appearance-Urine CLEAR Clear Specific Hudson-Ur 1.011 1.010-1.030 Esterase-Urine 1+ Negative Nitrite NEGATIVE Negative Oqyxhgzbctfr-Ha-QTB NEGATIVE Negative Protein-Urine NEGATIVE Negative PH-Urine 6.0 5-9 Blood-Urine 3+ Negative Ketones-Urine NEGATIVE Negative Bilirubin-Ur NEGATIVE Negative Glucose-Urine NEGATIVE Negative WBC-Urine 1-3 0-5 RBC-Urine 10-15 0-2 Epith Cells-Ur MODERATE None Bacteria-Urine 2+ None Amorphous Sed-U TRACE None HCG () Urine Stat 02/01/2010 Specific Hudson 1.011 1.010-1.030 Urine NEGATIVE Negative 50 CBC With Manual Diff Stat 02/01/2010 White Blood Count 9.6 CUMM 4.8-10.8 Red Cell Count 4.60 CUMM 4.2-5.4 Hemoglobin 14.4 g/dL 12.0-16.0 Hematocrit 41 % 35-47 Mean Corpuscular Volume 90 um3 79-97 Mean Corpuscular Hemoglob 31 pg 27-31 Mean Corpuscular HGB Cone 35 g/dL 32-36 Redcell Distribution WDTH 12 % 10.5-15 Platelet Count 311 CUMM 150-450 Mean Platelet Volume 7.7 um3 7.4-10.4 Polysegmented Neutrophil 56 % 38-83 Lymphocyte 36 % 25-47 Monocyte 7 % 0-13 Eosenophil 1 % 0-6 Absolute Neutrophil Count 5.3 RBC Morphology NORMAL CMP Panel Stat 02/01/2010 Sodium 137 mmol/L 135-145 Potassium 4.1 mmol/L 3.5-5.0 Chloride 107 mmol/L 101-111 Co2 (Carbon Dioxide) 22.0 mmol/L 22-32 Anion Gap 8.0 mmol/L 2-11 51 Glucose 102 mg/dL High 70-100 52 BUN 10 mg/dL 6-24 Creatinine 0.60 mg/dL 0.50-1.40 One Over Creatinine 1.60 BUN/Creatinine Ratio 16.7 8-20 Calcium 9.2 mg/dL 8.1-9.9 53 Total Protein 7.0 GM/DL 6.2-8.1 Albumin 4.3 GM/DL 3.6-5.4 Globulin 2.7 GM/DL 2-4 Albumin/Globulin Ratio 1.6 1-3 Bilirubin Total 0.4 mg/dL 0.4-1.5 54 Alkaline Phosphatase 57 U/L 30-110 Alt (SGPT) 18 U/L 14-54 Ast (Sgot) 20 U/L 12-42 eGFR Non- 129.5 > 60 eGFR 156.6 > 60 55 Urinalysis W/Microscopic 01/11/2010 Ua Color YELLOW Yellow Appearance-Urine CLEAR Clear Specific Hudson-Ur 1.011 1.010-1.030 Esterase-Urine TRACE Negative Nitrite NEGATIVE Negative Upmdcumgcifc-Et-EXO NEGATIVE Negative Protein-Urine NEGATIVE Negative PH-Urine 6.5 5-9 Blood-Urine 3+ Negative Ketones-Urine NEGATIVE Negative Bilirubin-Ur NEGATIVE Negative Glucose-Urine NEGATIVE Negative WBC-Urine 0-2 0-5 RBC-Urine TNTC 0-2 Mucus Urine SMALL None Epith Cells-Ur FEW None HCG () Urine Stat 01/11/2010 Specific Hudson 1.006 Low 1.010- 1.030 Urine NEGATIVE Negative 56 Throat-Beta Strept 2009 Throat-Beta Strep Culture POSAD 57 1 <5.0 Negative 5.0 - 25.0 Indeterminate (Repeat testing recommended after 72 hours) >25.0 Positive Perimenopausal women can display HCG levels of up to 20 mIU/mL 2 Because ethnic data is not always readily available, this report includes an eGFR for both -Americans and non- Americans. The National Kidney Disease Education Program (NKDEP) does not endorse the use of the MDRD equation for patients that are not between the ages of 18 and 70, are , have extremes of body size, muscle mass, or nutritional status, or are non- or non-. According to the National Kidney Foundation, irrespective of diagnosis, the stage of the disease is based on the level of kidney function: Stage Description GFR(mL/min/1.73 m(2)) 1 Kidney damage with normal or decreased GFR 90 2 Kidney damage with mild decrease in GFR 60-89 3 Moderate decrease in GFR 30-59 4 Severe decrease in GFR 15-29 5 Kidney failure <15 (or dialysis) 3 Acute inflammation: >10.00 4 [facility] Severe Sepsis and Septic Shock Management Bundle Measure requires all lactic acids initially measuring >2.0 mmol/L be repeated. 5 SEE RESULT BELOW Name: SANDRA FELIZ : [address]: Lawanda Honeycutt MD Acct: [id number] Unit: [id number] AGE: 30 Location: [place] [address] Re06/12/16 Dis: 06/15/16 SEX: F Status: DIS Rox SPEC: [id number] JB: 06/12/16-[address] [facility] [address]: Curtis Almazan MD REQ: [id number] RECD: 06/12/16 STATUS: CRUZITO MERCEDES DR: Carlos Gray III, MD _ SOURCE: BLOOD,VENO SPDES: ORDERED: Blood Cult Procedure Result Reported Site Aerobic Culture Bottle Final 06/17/16- 1311 ML No Growth Day 5 Anaerobic Culture Bottle Final 06/17/16- 1311 ML No Growth Day 5 * ML - MAIN LAB ([facility]) . END OF REPORT * ML=Testing performed at Main Lab DEPARTMENT OF PATHOLOGY, [address] [place] [address] Cesario Vera M.D. Director [facility] # [id number] 6 Because ethnic data is not always readily available, this report includes an eGFR for both -Americans and non- Americans. The National Kidney Disease Education Program (NKDEP) does not endorse the use of the MDRD equation for patients that are not between the ages of 18 and 70, are , have extremes of body size, muscle mass, or nutritional status, or are non- or non-. According to the National Kidney Foundation, irrespective of diagnosis, the stage of the disease is based on the level of kidney function: Stage Description GFR(mL/min/1.73 m(2)) 1 Kidney damage with normal or decreased GFR 90 2 Kidney damage with mild decrease in GFR 60-89 3 Moderate decrease in GFR 30-59 4 Severe decrease in GFR 15-29 5 Kidney failure <15 (or dialysis) 7 Normal Range 180 to 914 Indeterminate Range 145 to 180 Deficient Range <145 8 SEE RESULT BELOW Name: SANDRA FELIZ : [address]: Randolph Ortiz MD Acct: [id number] Unit: [id number] AGE: 29 Location: [facility] Re11/13/15 SEX: F Status: DEP ER SPEC: [id number] JB: 11/13/15 [facility] [address]: Randolph Ortiz MD REQ: [id number] RECD: 11/14/15 STATUS: CRUZITO MERCEDES DR: Carlos Gray III, MD _ SOURCE: URINE SPDESC: ORDERED: Urine Culture Procedure Result Reported Site Urine Culture Final 11/15/15- 0849 ML No growth of clinically significant organisms * ML - MAIN LAB ([facility]) . END OF REPORT * ML=Testing performed at Main Lab DEPARTMENT OF PATHOLOGY, [address] [place] [address] Cesario Vera M.D. Director [facility] # [id number] Corrections Counselor: [id number] [address] The authorization manager and regulatory agencies both recommend that a throat culture for beta strep be performed if a Rapid Group A Strep assay yields a negative result. Therefore a culture will be automatically performed on all negative samples. 10 SEE RESULT BELOW Name: SANDRA FELIZ : [address]: Randolph Ortiz MD Acct: [id number] Unit: [id number] AGE: 29 Location: [facility] Re10/09/15 SEX: F Status: DEP ER SPEC: [id number] JB: 10/09/15-0 [facility] [address]: Randolph Ortiz MD REQ: [id number] RECD: 10/10/15 STATUS: CRUZITO MERCEDES DR: Carlos Gray III, MD _ SOURCE: THROAT SPDESC: ORDERED: Throat Beta Str Procedure Result Reported Site Throat Beta Strep Culture Final 10/12/15- 1150 ML Negative For Group A Beta Streptococcus * ML - MAIN LAB ([facility]) . END OF REPORT * ML=Testing performed at Main Lab DEPARTMENT OF PATHOLOGY, [address] [place] [address] Cesario Vera M.D. Director [facility] # [id number] 11 SEE RESULT BELOW Name: SANDRA FELIZ : [address]: Yudelka Hoang Acct: [id number] Unit: [id number] AGE: 29 Location: [facility] Re02/15/15 SEX: F Status: DEP ER SPEC: [id number] JB: 02/15/15-[address]: Yudelka Briceno DO REQ: [id number] RECD: 02/16/15 STATUS: COMP OTHR DR: [facility] Carlos Gray III, MD _ SOURCE: URINE SPDESC: ORDERED: Urine Culture Procedure Result Verified Site Urine Culture Final 02/18/15- 823 ML No Growth Day 2 (<1,000 CFU/mL) * ML - MAIN LAB ([facility]) . END OF REPORT * ML=Testing performed at Main Lab DEPARTMENT OF PATHOLOGY, [facility] [address] [place], [place] [address] Cesario Vera M.D. Director [facility] # [id number] RUN DATE: 01/01/15 [facility] LAB LIVE PAGE 1 RUN TIME: 1393 [facility] [employer] [place], [place] [address] Specimen Inquiry Name: SANDRA FELIZ : [address]: Uriel Cordero MD Acct: [id number] Unit: [id number] AGE: 29 Location: [facility] Re12/30/14 SEX: F Status: DEP ER SPEC: [id number] JB: 12/30/14-[address] [facility] [address]: Giselle Bey NP REQ: [id number] RECD: 12/30/14-1322 STATUS: CRUZITO MERCEDES DR: Uriel Gray III, MD _ SOURCE: URINE SPDESC: ORDERED: Urine Culture Procedure Result Verified Site Urine Culture Final 01/01/15- 1139 ML No Growth Day 2 (<1,000 CFU/mL) * ML - MAIN LAB ([facility]) . END OF REPORT * ML=Testing performed at Main Lab DEPARTMENT OF PATHOLOGY, [facility] [address] [place], [place] [address] Cesario Vera M.D. Director [facility] # [id number] RUN DATE: 03/02/14 [facility] LAB LIVE PAGE 1 RUN TIME: 927 [facility] [employer] [place], [place] [address] Specimen Inquiry Name: SANDRA FELIZ : [address]: Robert Stewart MD Acct: [id number] Unit: [id number] AGE: 28 Location: [facility] Re02/27/14 SEX: F Status: DEP ER SPEC: [id number] JB: 02/27/14-89[address] [facility] [address]: Robert Stewart MD REQ: [id number] RECD: 02/28/14-977 STATUS: CRUZITO MERCEDES DR: Carlos Gray III, MD _ SOURCE: URINE [facility]: ORDERED: Urine Culture Procedure Result Verified Site Urine Culture Final 03/02/14- 927 ML Organism 1 KLEBSIELLA PNEUMONIAE Buckeye Count 10-25,000 (Moderate) CFU/ML Organism 2 NORMAL MARANDA Buckeye Count 1-10,000 (Few) CFU/ML 1. KLEBSIELLA PNEUMONIAE M.I.C. RX --------- ------ Ampicillin >=32 R Cefazolin <=4 S Cefepime <=1 S Ceftriaxone <=1 S Ciprofloxacin <=0.25 S Gentamicin <=1 S Levofloxacin <=0.12 S Meropenem <=0.25 S Nitrofurantoin <=16 S Tetracycline 2 S Pipercillin/Tazobactam <=4 S Trimethoprim/Sulfamethoxazole <=20 S Amoxicillin/Clavulanic Acid <=2 S Aztreonam <=1 S Contact the Microbiology Department for any additional antibiotic reporting. END OF REPORT * ML=Testing performed at Main Lab DEPARTMENT OF PATHOLOGY, [facility] [address] [place], [place] [address] Cesario Vera M.D. Director [facility] # [id number] RUN DATE: 11/26/13 [facility] LAB LIVE PAGE 1 RUN TIME: 902 [facility] [employer] [place], [place] [address] Specimen Inquiry Name: SANDRA FELIZ : [address]: Lilia Jolly MD Acct: [id number] Unit: [id number] AGE: 27 Location: [facility] Re11/23/13 SEX: F Status: DEP ER SPEC: [id number] JB: 11/23/13-1749 [facility] [address]: Lilia Jolly MD REQ: [id number] RECD: 11/24/13-1100 STATUS: CRUZITO MERCEDES DR: Carlos Gray III, MD _ SOURCE: URINE SPDESC: ORDERED: Urine Culture Procedure Result Verified Site Urine Culture Final 11/26/13- 901 ML Organism 1 NORMAL MARANDA Buckeye Count 10-25,000 (Moderate) CFU/ML END OF REPORT * ML=Testing performed at Main Lab DEPARTMENT OF PATHOLOGY, [facility] [address] [place] [address] Cesario Vera M.D. Director [facility] Permit #[id number] RUN DATE: 08/18/13 [facility] LAB LIVE PAGE 1 RUN TIME: 1415 [facility] [employer] [place], [place] [address] Specimen Inquiry Name: SANDRA FELIZ : [address]: Robert Stewart MD Acct: [id number] Unit: [id number] AGE: 27 Location: [facility] Re08/16/13 SEX: F Status: REG ER SPEC: [id number] JB: 08/16/13 [facility] [address]: Giselle Bey NP REQ: [id number] RECD: 08/17/13 STATUS: RES OTHR DR: Robert Gray III, MD _ SOURCE: STOOL SPDESC: ORDERED: Stool Culture, Fecal Lactoferr, O P: Giar/Crypt QUERIES: Medent Number no orange top Procedure Result Verified Site Stool Culture PENDING Stool Specimen Description Final 08/17/13- 1052 ML Test not performed Shiga Toxin 1 2 Final 08/18/13- 1411 ML Organism 1 Negative Shiga Toxin 1 2 Immunochromatographic Assay Fecal Lactoferrin (Stool WBC) Final 08/17/13- 1052 ML Test not performed O P: Giardia/Cryptospor Screen Final 08/18/13- 1415 ML Organism 1 Neg Cryptosporidium/Giardia Giardia and cryptosporidium antigen testing performed by enzyme immunoassay. If patient is immunocompromised or has traveled to or is from a developing country, a full ova and parasite exam with microscopic (OPMIC) is recommended. All samples will be held one month in case full ova and parasite testing is requested. Contact the Microbiology Department at [phone]. TEST LIMITATIONS: As with all diagnostic procedures, the results obtained should be used in conjunction with other clinical CONTINUED ON NEXT PAGE * ML=Testing performed at Main Lab DEPARTMENT OF PATHOLOGY, [facility] [address] [place], [place] [address] Cesario Vera M.D. Director [facility] Permit #[id number] RUN DATE: 08/18/13 [facility] LAB LIVE PAGE 2 RUN TIME: 1415 [facility] [employer] [place], [place] [address] Specimen Inquiry Patient: SANDRA FELIZ [id number] (Continued) Specimen: [id number] Collected: 08/16/13-2099 Received: 08/17/13-1047 (Continued) Procedure Result Verified Site O P: Giardia/Cryptospor Screen Final (continued) 08/18/13- 141 information available the physician. Negative results can occur in samples containing antigen below lower limits of detection of the assay. The use of colonic washes, aspirates or other diluted sample types has not been established and could affect the performance of the assay. Stool samples contaminated with an oily or particulate base (eg. Barium, mineral oil etc.) could interfere with the test and are not recommended. END OF REPORT * ML=Testing performed at Main Lab DEPARTMENT OF PATHOLOGY, [facility] [address] [place], [place] [address] Cesario Vera M.D. Director [facility] Permit #[id number] RUN DATE: 08/20/13 [facility] LAB LIVE PAGE 1 RUN TIME: 4913 [facility] [employer] [place], [place] [address] Specimen Inquiry Name: SANDRA FELIZ : [address]: Robert Stewart MD Acct: [id number] Unit: [id number] AGE: 27 Location: [facility] Re08/16/13 SEX: F Status: REG ER SPEC: [id number] JB: 08/16/13 [facility] [address]: Giselle Bey NP REQ: [id number] RECD: 08/17/13 STATUS: CRUZITO MERCEDES DR: Robert Gray III, MD _ SOURCE: URINE SPDESC: ORDERED: GC/Chlam RNA Procedure Result Verified Site Chlamydia Trachomatis RNA Final 08/20/13- 1333 ML NEGATIVE for Chlamydia trachomatis rRNA GC (N. gonorrhoeae) RNA Final 08/20/13- 1333 ML NEGATIVE for Neisseria gonorrhoeae rRNA A negative result does not preclude the presence of a C. trachomatis or N. gonorrhoeae infection because results are dependent on adequate specimen collection, absence of inhibitors, and sufficient rRNA to be detected. Test results may be affected by improper specimen collection, improper storage, technical error, or specimen mixup. Limitations of the Procedure: The Aptima Combo 2 Assay is not intended for the evaluation of suspected sexual abuse or for other medico-legal indications. For those patients for whom a false positive result may have adverse psychosocial impact, the [facility] recommends retesting by a method using an alternate technology. Therapeutic failure or success cannot be determined with the Aptima Combo 2 Assay since nucleic acid may persist following appropriate antimicrobial therapy. Results from the Aptima Combo 2 Assay should be interpreted in conjunction with other laboratory and clinical data available to the clinican. CONTINUED ON NEXT PAGE * ML=Testing performed at Main Lab DEPARTMENT OF PATHOLOGY, [facility] [address] [place] [id number] Cesario Vera M.D. Director [facility] Permit #[id number] RUN DATE: 08/20/13 [facility] LAB LIVE PAGE 2 RUN TIME: 8913 [facility] [employer] [place], [place] [address] Specimen Inquiry Patient: SANDRA FELIZ [id number] (Continued) Specimen: [id number] Collected: 08/16/13 Received: 08/17/13-115 (Continued) Procedure Result Verified Site GC (N. gonorrhoeae) RNA Final (continued) 08/20/13- 3201 Performance characteristics for detecting C. trachomatis and N. gonorrhoeae are derived from high prevalence populations. Positive results in low prevalence populations should be interpreted carefully with the understanding that the likelihood of a false positive may be higher than a true positive. END OF REPORT * ML=Testing performed at Main Lab DEPARTMENT OF PATHOLOGY, [facility] [address] [place], [place] [address] Cesario Vera M.D. Director [facility] Permit #[id number] RUN DATE: 08/19/13 [facility] LAB LIVE PAGE 1 RUN TIME: 1015 [facility] [employer] [place], [place] [address] Specimen Inquiry Name: SANDRA FELIZ : [address]: Robert Stewart MD Acct: [id number] Unit: [id number] AGE: 27 Location: [facility] Re08/16/13 SEX: F Status: REG ER SPEC: [id number] JB: 08/16/13-[address]99 [facility] [address]: Giselle Bey NP REQ: [id number] RECD: 08/17/13 STATUS: CRUZITO MERCEDES DR: Robert Gray III, MD _ SOURCE: URINE SPDESC: ORDERED: Urine Culture Procedure Result Verified Site Urine Culture Final 08/19/13- 1015 ML Organism 1 NORMAL MARANDA Buckeye Count >100,000 (Many) CFU/ML END OF REPORT * ML=Testing performed at Main Lab DEPARTMENT OF PATHOLOGY, [facility] [address] [place], [place] [address] Cesario Vera M.D. Director [facility] Permit #[id number] RUN DATE: 08/20/13 [facility] LAB LIVE PAGE 1 RUN TIME: 817 [facility] [employer] [place], [place] [address] Specimen Inquiry Name: SANDRA FELIZ : [address]: Robert Stewart MD Acct: [id number] Unit: [id number] AGE: 27 Location: [facility] Re08/16/13 SEX: F Status: REG ER SPEC: [id number] JB: 08/16/13-[address]99 [facility] [address]: Giselle Bey NP REQ: [id number] RECD: 08/17/13 STATUS: CRUZITO MERCEDES DR: Robert Gray III, MD _ SOURCE: STOOL SPDESC: ORDERED: Stool Culture, Fecal Lactoferr, O P: Giar/Crypt QUERIES: Medent Number no orange top Procedure Result Verified Site Stool Culture Final 08/19/13- 1059 ML Result No enteric pathogens isolated Testing for Salmonella, Shigella, Aeromonas, Plesiomonas, Yersinia and Campylobacter are included in a Stool Culture. Vibrio spp not routinely tested for in a stool culture. If testing is desired, please request specifically when placing test order. Sensitivities not routinely performed on stool isolates, as antibiotics may prolong the carriage rate of bacteria. Please contact the microbiology lab if sensitivities are required. Stool Specimen Description Final 08/17/13- 1052 ML Test not performed Shiga Toxin 1 2 Final 08/20/13- 0818 ML Organism 1 Negative Shiga Toxin 1 2 Immunochromatographic Assay Fecal Lactoferrin (Stool WBC) Final 08/17/13- 1052 ML Test not performed O P: Giardia/Cryptospor Screen Final 08/18/13- 1415 ML CONTINUED ON NEXT PAGE * ML=Testing performed at Main Lab DEPARTMENT OF PATHOLOGY, [facility] [address] [place], [place] [address] Cesario Vera M.D. Director [facility] Permit #[id number] RUN DATE: 08/20/13 [facility] LAB LIVE PAGE 2 RUN TIME: [address] [place] [address] Specimen Inquiry Patient: SANDRA FELIZ [id number] (Continued) Specimen: [id number] Collected: 08/16/13 Received: 08/17/13 (Continued) Procedure Result Verified Site O P: Giardia/Cryptospor Screen Final (continued) 08/18/13- 1415 Organism 1 Neg Cryptosporidium/Giardia Giardia and cryptosporidium antigen testing performed by enzyme immunoassay. If patient is immunocompromised or has traveled to or is from a developing country, a full ova and parasite exam with microscopic (OPMIC) is recommended. All samples will be held one month in case full ova and parasite testing is requested. Contact the Microbiology Department at [phone]. TEST LIMITATIONS: As with all diagnostic procedures, the results obtained should be used in conjunction with other clinical information available the physician. Negative results can occur in samples containing antigen below lower limits of detection of the assay. The use of colonic washes, aspirates or other diluted sample types has not been established and could affect the performance of the assay. Stool samples contaminated with an oily or particulate base (eg. Barium, mineral oil etc.) could interfere with the test and are not recommended. END OF REPORT * ML=Testing performed at Main Lab DEPARTMENT OF PATHOLOGY, [address] [place] [address] Cesario Vera M.D. Director [facility] Permit #[id number] 19 Because ethnic data is not always readily available, this report includes an eGFR for both -Americans and non- Americans. The National Kidney Disease Education Program (NKDEP) does not endorse the use of the MDRD equation for patients that are not between the ages of 18 and 70, are , have extremes of body size, muscle mass, or nutritional status, or are non- or non-. According to the National Kidney Foundation, irrespective of diagnosis, the stage of the disease is based on the level of kidney function: Stage Description GFR(mL/min/1.73 m(2)) 1 Kidney damage with normal or decreased GFR 90 2 Kidney damage with mild decrease in GFR 60-89 3 Moderate decrease in GFR 30-59 4 Severe decrease in GFR 15-29 5 Kidney failure <15 (or dialysis) 20 Anion gap measurement may be of limited value in the presence of any alkalosis, especially in a combined acid base disorder. . 21 Because ethnic data is not always readily available, this report includes an eGFR for both -Americans and non- Americans. The National Kidney Disease Education Program (NKDEP) does not endorse the use of the MDRD equation for patients that are not between the ages of 18 and 70, are , have extremes of body size, muscle mass, or nutritional status, or are non- or non-. According to the National Kidney Foundation, irrespective of diagnosis, the stage of the disease is based on the level of kidney function: Stage Description GFR(mL/min/1.73 m(2)) 1 Kidney damage with normal or decreased GFR 90 2 Kidney damage with mild decrease in GFR 60-89 3 Moderate decrease in GFR 30-59 4 Severe decrease in GFR 15-29 5 Kidney failure <15 (or dialysis) 22 Imm. NE 1 23 New Reference Range and Interpretation effective 07/09/2002 TnI (ng/ml) INTERPRETATION Less Than 0.06 ng/mL NOT SUPPORTIVE OF DIAGNOSIS OF HI 0.06 - 0.50 ng/ml INDETERMINATE: SUGGEST SERIAL STUDIES IF CLINICALLY INDICATED. Greater than 0.5 ng/mL CONSISTENT WITH DIAGNOSIS OF HI . 24 Imm. NE 1 25 Anion gap measurement may be of limited value in the presence of any alkalosis, especially in a combined acid base disorder. . 26 A metabolite of Naproxen, O-desmethylnaproxen, has been shown to interfere with the Jendrassik-Annabella method for measuring total bilirubin. Samples from patients who have taken Naproxen have shown spurious elevation in total bilirubin levels. 27 Because ethnic data is not always readily available, this report includes an eGFR for both -Americans and non- Americans. The National Kidney Disease Education Program (NKDEP) does not endorse the use of the MDRD equation for patients that are not between the ages of 18 and 70, are , have extremes of body size, muscle mass, or nutritional status, or are non- or non-. According to the National Kidney Foundation, irrespective of diagnosis, the stage of the disease is based on the level of kidney function: Stage Description GFR(mL/min/1.73 m(2)) 1 Kidney damage with normal or decreased GFR 90 2 Kidney damage with mild decrease in GFR 60-89 3 Moderate decrease in GFR 30-59 4 Severe decrease in GFR 15-29 5 Kidney failure <15 (or dialysis) 28 NEGATIVE FOR GROUP A BETA STREPTOCOCCUS 29 FINAL: NO GROWTH DAY 2 (<1,000 CFU/mL) 30 Anion gap measurement may be of limited value in the presence of any alkalosis, especially in a combined acid base disorder. . 31 Because ethnic data is not always readily available, this report includes an eGFR for both -Americans and non- Americans. The National Kidney Disease Education Program (NKDEP) does not endorse the use of the MDRD equation for patients that are not between the ages of 18 and 70, are , have extremes of body size, muscle mass, or nutritional status, or are non- or non-. According to the National Kidney Foundation, irrespective of diagnosis, the stage of the disease is based on the level of kidney function: Stage Description GFR(mL/min/1.73 m(2)) 1 Kidney damage with normal or decreased GFR 90 2 Kidney damage with mild decrease in GFR 60-89 3 Moderate decrease in GFR 30-59 4 Severe decrease in GFR 15-29 5 Kidney failure <15 (or dialysis) 32 Neutrophilia % Lymphopenia % 33 Anion gap measurement may be of limited value in the presence of any alkalosis, especially in a combined acid base disorder. . 34 A metabolite of Naproxen, O-desmethylnaproxen, has been shown to interfere with the Jendrassik-Awilda method for measuring total bilirubin. Samples from patients who have taken Naproxen have shown spurious elevation in total bilirubin levels. 35 Because ethnic data is not always readily available, this report includes an eGFR for both -Americans and non- Americans. The National Kidney Disease Education Program (NKDEP) does not endorse the use of the MDRD equation for patients that are not between the ages of 18 and 70, are , have extremes of body size, muscle mass, or nutritional status, or are non- or non-. According to the National Kidney Foundation, irrespective of diagnosis, the stage of the disease is based on the level of kidney function: Stage Description GFR(mL/min/1.73 m(2)) 1 Kidney damage with normal or decreased GFR 90 2 Kidney damage with mild decrease in GFR 60-89 3 Moderate decrease in GFR 30-59 4 Severe decrease in GFR 15-29 5 Kidney failure <15 (or dialysis) 36 * MALES: < 5.0 MIU/ML NON FEMALES < 5.0 MIU/ML APPROX GESTATIONAL AGE APPROX HCG RANGE 0-1 WEEK < 5.0-50 1-2 WEEKS 50-500 2-3 WEEKS 100-5000 3-4 WEEKS 500-10,000 1-2 MONTHS 10,000-200,000 2-3 MONTHS 15,000-100,000 PLEASE NOTE: The intended use of this assay is the quantitative determination of HCG in human serum or plasma for the early detection of . These assays should not be used to diagnose any condition unrelated to . If an HCG level is inconsistent with, or unsupported by, clinical evidence, results should be confirmed by an alternate HCG method. . 37 ---- RUN DATE: 03/15/11 [facility] NMI LIVE PAGE 1 RUN TIME: 1303 Specimen Inquiry RUN USER: INTERFACE -- Name: CLAIREPRABHAKARSANDRAROSALEE Salcedo#: [id number] Status: DIS Rox Re03/14/11 Age/Sex: 25/F Unit#: [id number] Location: 3P : 84 -- Specimen: [id number] CHEPE Spec Date: 03/14/[address]: Robert morgan MD Spec Type: SURGICAL P Received: 03/14/11-9290 Copies to: CYTOLOGY Carlos Cherry MD SPECIMEN 1) RIGHT TUBAL CYST 2) APPENDIX HISTORY PRE-OP DIAGNOSIS: Rule out appendicitis GROSS DESCRIPTION 1) The specimen is received in formalin labelled Sandra Wacht, Right Tubal Cyst, and consists of one cystic structure with clear fluid measuring 1.5 x 0.8 x 0.8 cm. Submitted entirely, one cassette labelled 1. 2) The specimen is received in formalin labelled Sandra Wacht, Appendix, and consists of an appendix measuring 5.0 cm. in length and 0.8 cm. in diameter with a slight congested serosal surface and with stapled margin. Prune Washer section, one cassette labelled 2. DIAGNOSIS 1) Right paratubal cyst, cystectomy: Paratubal cyst. 2) Appendix, appendectomy: A. Appendix with fecalith. B. No evidence of acute appendicitis. Signed Electronically by: MEHNAZ BHAGAT 03/15/11 1302 -- -- DEPARTMENT OF PATHOLOGY, [address] [place] [address] [facility] Permit #[id number] Cesario Vera M.D. Director Mehnaz Bhagat M.D. Art Class Model Dir tico -- 38 MODERATE (1 TO 4/HPF) ABSENT FEW (LESS THAN 1/HPF) ABSENT 39 Recommended INR for Patients on Oral Anticoagulants Prophylaxis 2.0 - 3.0 Treatment of thrombosis 2.0 - 3.0 Prevention of embolism 2.0 - 3.0 Prevention of embolism from prosthetic heart valves 2.5 - 3.5 40 DIAGNOSIS,TREATMENT,AND THERAPY MUST BE BASED ON THE INR VALUE ALONE. 41 FEW URIC ACID CRYSTALS OBSERVED 42 * MALES: < 5.0 MIU/ML NON FEMALES < 5.0 MIU/ML APPROX GESTATIONAL AGE APPROX HCG RANGE 0-1 WEEK < 5.0-50 1-2 WEEKS 50-500 2-3 WEEKS 100-5000 3-4 WEEKS 500-10,000 1-2 MONTHS 10,000-200,000 2-3 MONTHS 15,000-100,000 PLEASE NOTE: The intended use of this assay is the quantitative determination of HCG in human serum or plasma for the early detection of . These assays should not be used to diagnose any condition unrelated to . If an HCG level is inconsistent with, or unsupported by, clinical evidence, results should be confirmed by an alternate HCG method. . 43 Anion gap measurement may be of limited value in the presence of any alkalosis, especially in a combined acid base disorder. . 44 A metabolite of Naproxen, O-desmethylnaproxen, has been shown to interfere with the Jenduyen-Annabella method for measuring total bilirubin. Samples from patients who have taken Naproxen have shown spurious elevation in total bilirubin levels. 45 Because ethnic data is not always readily available, this report includes an eGFR for both -Americans and non- Americans. The National Kidney Disease Education Program (NKDEP) does not endorse the use of the MDRD equation for patients that are not between the ages of 18 and 70, are , have extremes of body size, muscle mass, or nutritional status, or are non- or non-. According to the National Kidney Foundation, irrespective of diagnosis, the stage of the disease is based on the level of kidney function: Stage Description GFR(mL/min/1.73 m(2)) 1 Kidney damage with normal or decreased GFR 90 2 Kidney damage with mild decrease in GFR 60-89 3 Moderate decrease in GFR 30-59 4 Severe decrease in GFR 15-29 5 Kidney failure <15 (or dialysis) 46 * MALES: < 5.0 MIU/ML NON FEMALES < 5.0 MIU/ML APPROX GESTATIONAL AGE APPROX HCG RANGE 0-1 WEEK < 5.0-50 1-2 WEEKS 50-500 2-3 WEEKS 100-5000 3-4 WEEKS 500-10,000 1-2 MONTHS 10,000-200,000 2-3 MONTHS 15,000-100,000 PLEASE NOTE: The intended use of this assay is the quantitative determination of HCG in human serum or plasma for the early detection of . These assays should not be used to diagnose any condition unrelated to . If an HCG level is inconsistent with, or unsupported by, clinical evidence, results should be confirmed by an alternate HCG method. . 47 RESULT: Results suggest past infection In most populations, at least 90% of the adult population will have been infected with EBV sometime in the past and therefore, will be positive for anti-VCA/IgG and anti-EBNA. Antibodies to EBNA develop 6-8 weeks after primary infection and remain present for life. Presence of VCA/IgM antibodies indicates recent primary infection with EBV. Test Performed by: [facility] Dpt of Lab Med and Pathology [address] [place] [id number] Fur Remodeler: Waylon Floyd III, M.D. 48 >100^>100,000 ORGANISMS/ML (MANY)^CCU 49 SPECIMEN CONTAINS NORMAL URETHRAL OR PERINEAL MARANDA AND DOES NOT SUGGEST URINARY TRACT INFECTION 50 If is still suspected, please repeat test after 48 to 72 hours. . 51 Anion gap measurement may be of limited value in the presence of any alkalosis, especially in a combined acid base disorder. . 52 Note change in reference range as of 05/26/08. The change was based on recommendations from the [place] [employer]. 53 Please note change in reference range effective 08 . 54 A metabolite of Naproxen, O-desmethylnaproxen, has been shown to interfere with the Jendrassik-Annabella method for measuring total bilirubin. Samples from patients who have taken Naproxen have shown spurious elevation in total bilirubin levels. 55 Because ethnic data is not always readily available, this report includes an eGFR for both -Americans and non- Americans. The National Kidney Disease Education Program (NKDEP) does not endorse the use of the MDRD equation for patients that are not between the ages of 18 and 70, are , have extremes of body size, muscle mass, or nutritional status, or are non- or non-. According to the National Kidney Foundation, irrespective of diagnosis, the stage of the disease is based on the level of kidney function: Stage Description GFR(mL/min/1.73 m(2)) 1 Kidney damage with normal or decreased GFR 90 2 Kidney damage with mild decrease in GFR 60-89 3 Moderate decrease in GFR 30-59 4 Severe decrease in GFR 15-29 5 Kidney failure <15 (or dialysis) 56 If is still suspected, please repeat test after 48 to 72 hours. . 57 POSITIVE FOR PRESUMPTIVE GROUP A BETA HEMOLYTIC STREP BY BACITRACIN DISC Procedures Date CPT Code Description Status 12/29/2013 Colonoscopy Completed Encounters Type Date Location Provider CPT E/M Dx Office Visit 11/13/2017 10:20a [facility] [place] [address] F41.9 [place] F33.9 Office Visit 10/13/2017 10:20a [facility] [place] [address] F41.9 [place] F33.9 Office Visit 09/10/2017 9:20a [facility] [address] F41.9 [place] F33.9 L29.8 Office Visit 08/11/2017 10:40a [facility] - [place], [place] [address] J01.90 [place] F41.9 F43.21 M54.5 Office Visit 07/10/2017 11:20a [facility] - [place], [place] [address] F41.9 [place] F43.21 M54.5 Office Visit 06/10/2017 10:40a [facility] - [place], [place] [address] F41.9 [place] F43.21 G47.00 Office Visit 05/08/2017 4:00p [facility] - [place], [place] [address] F41.9 [place] F43.21 Office Visit 03/27/2017 2:20p [facility] [place] [address] F41.9 [place] F43.21 J01.90 Office Visit 03/07/2017 10:20a [facility] [place] [address] F41.9 [place] F43.21 G47.00 Office Visit 02/05/2017 10:40a [facility] - [place], [place] [address] F41.9 [place] F43.21 Office Visit 01/08/2017 9:20a [facility] - [place], [place] [address] F41.9 [place] Office Visit 12/11/2016 9:20a [facility] [place] [address] F41.3 [place] F43.21 Office Visit 11/13/2016 2:00p [facility] [address] F41.3 [place] F43.21 Office Visit 10/22/2016 2:20p [facility] Carlos Gray, [address] J20.9 - Elva Gibbons Office Visit 10/11/2016 3:20p [facility] [address] F43.21 - [place] F41.3 Office Visit 06/17/2016 4:00p [facility] [place] [address] R11.2 [place] A02.9 K50.90 Office Visit 06/15/2016 [facility] [place] [address] R10.31 Assoc,[facility] Hospitalists R11.2 R19.7 K50.90 Office Visit 06/12/2016 1:25p [facility]pc Theodore Hinojosa.Natividad. [address] R10.31 Hospitalists R19.7 R11.2 K50.90 Office Visit 05/15/2016 4:20p [facility] [place] [address] R53.83 [place] N92.6 Office Visit 02/13/2016 2:40p [facility] Carlos Gray, [address] H92.02 - Jesika Gibbons Office Visit 01/15/2016 5:20p [facility] Carlos Gray, [address] J06.9 - Jesika Gibbons Office Visit 10/13/2015 4:20p [facility] Haylee Ashraf M.D. 29392 J01.90 - Jesika J20.9 Office Visit 08/01/2015 1:30p [facility] [place] [address] K20.9 Jesika R12 Office Visit 01/25/2014 11:20a [facility] Carlos Gray, [address] 555.1 - Jesika Gibbons Office Visit 09/06/2013 2:20p [facility] Carlos Gray, [address] 784.1 - Jesika Gibbons Office Visit 01/30/2012 2:45p [facility] Gurwinder Boggs M.D. 83[address] 719.47 [place] Office Visit 10/29/2011 2:20p [facility] Carlos Gray, [address] 784.2 - Jesika Gibbons V06.1 244.9 Office Visit 07/10/2011 3:40p DO Not Use [employer] [facility] At Carlos Gray [address] 724.2 Jose Alejandro Gibbons 244.9 Office Visit 06/28/2011 9:20a DO Not Use [facility] At Carlos Gray, [address] V04.81 Jose Alejandro Gibbons 244.9 553.20 724.2 Office Visit 05/14/2011 4:15p DO Not Use [employer] At Kim Alfred, N.P. 93783 724.2 [facility] Office Visit 10/30/2010 3:00p DO Not Use [employer] Inspector At Carlos Gray, [address]7901 V70.3 Jose Alejandro Gibbons Office Visit 08/15/2009 3:30p DO Not Use [facility] At Carlos Gray, 14074 465.9 Jose Alejandro Gibbons V70.3 592.9 Plan of Care Future Appointment(s):01/22/2018 9:20 am - [place] NP at [facility]12/22/2017 - Sen Herbert NPF41.9 Anxiety disorder, unspecifiedComments:Continue with current medications. Use the Xanax when having a panic attack. You can increase the hydroxyzine. You can try taking 75- 100mg to see if it helps you sleep. Discuss if changes to medications are need with Dr. Priest. Also discuss if a medication for the nightmares is appropriate. The medication we discussed is called Prazosin.Continue seeing your counselor.Follow up:1 tifinY47.9 Major depressive disorder, recurrent, unspecifiedComments:If you start to feel more depressed and that you may hurt yourself or someone else it is important to reach out for help. You can go to the ER, call this office, Dr. Priest's office, or the suicide hotline.
--- NOTE | 2017-12-28 14:29 | UC ---
Mildred Grover Jason, [facility] on 12/28/17 at 1404 . Cardiac HPI - HPI Summary HPI Summary: In Room Note: This patient is a 32 year old F presenting to [facility] with a chief complaint of left chest pain since 0800 1 day ago. Patient mentions she has never experienced pain like this before. She includes she picked up a 6 year old child who was surprisingly heavy and felt something pop 2 days ago, and smokes 1/3 pack of cigarettes per day." The patient rates the pain 8/10 in severity. Symptoms aggravated by movement. Symptoms alleviated by nothing. Patient denies N/V/D, and cough. The last time she saw her PCP was this month because I see him every month for my depression. Physicians Note: The patient is a 32 year old female with complaints of left chest, shoulder, and arm pain. Vital signs stable. Afebrile. EKG reveals normal sinus rhythm without ischemia and with no change compared to April 18 2017 EKG; visit history positive for Chrons disease, kidney stones, anxiety. Patient is on multiple medications including Xanax and Lexapro. She has numerous visits for a variety of complaints including a previous chest pain evaluation, as noted. Nurses Note: Patient is having dull pain in her chest, back and it travels down her left arm. The pain started yesterday. When she moves her left arm the pain becomes sharp. Patient does not recall an injury but she states yesterday she picked up her nephew who was quite heavy. She denies nausea and dizziness. - History of Current Complaint Stated Complaint: CHEST,ARM,NECK PAIN Time Seen by Provider: 12/28/17 13:40 Hx Obtained From: Patient Hx Last Menstrual Period: unknown, iud Onset/Duration: Gradual Onset, Still Present Pain Intensity: 8 Chest Pain Location: Left Anterior Aggravating Factor(s): Movement Alleviating Factor(s): Nothing - Allergy/Home Medications Allergies/Adverse Reactions: Allergies Allergy/AdvReac Type Severity Reaction Status Date / Time amoxicillin Allergy Severe Swelling Verified 12/28/17 14:10 Of Face,Lips,& Throat erythromycin base Allergy Severe Swelling Verified 12/28/17 14:10 Of Face,Lips,& Throat Penicillins Allergy Severe Swelling Verified 12/28/17 14:10 Of Face,Lips,& Throat azithromycin Allergy Mild Nausea Verified 12/28/17 14:10 codeine [From Robitussin A-C] Allergy Mild scratchy Verified 12/28/17 14:10 throat guaifenesin Allergy Mild scratchy Verified 12/28/17 14:10 [From Robitussin A-C] throat doxycycline Allergy Abdominal Verified 12/28/17 14:10 Pain ibuprofen Allergy Unknown Verified 12/28/17 14:10 Reaction Details morphine Allergy Hives Verified 12/28/17 14:10 Home Medications: Home Medications Bupropion XL* [Wellbutrin XL *] 300 mg PO DAILY 12/28/17 [History Confirmed ] hydrOXYzine HCL TAB* [Atarax 10 MG TAB*] 10 mg PO BEDTIME 12/28/17 [History Confirmed 12/28/17] PMH/Surg Hx/FS Hx/Imm Hx Previously Healthy: No GI/ History: Kidney Stones Psychological History: Anxiety, Depression - Surgical History Surgical History: Yes Surgery Procedure, Year, and Place: APPENDECTOMY, CYST ON URETHRA, left KIDNEY STONE, left Kidney ABLATION X 3 - Family History Known Family History: Positive: Cardiac Disease - maternal grandmother and grandfather, Hypertension - mother, Diabetes, Respiratory Disease - Social History Alcohol Use: None Substance Use Type: None Smoking Status (MU): Heavy Every Day Tobacco Smoker Type: Cigarettes Amount Used/How Often: 1/3 ppd Length of Time of Smoking/Using Tobacco: 10 Years Have You Smoked in the Last Year: Yes - Immunization History Most Recent Influenza Vaccination: 2014 Most Recent Tetanus Shot: 2009 Most Recent Pneumonia Vaccination: never Hx Tetanus, Diphtheria Vaccination: Yes Vaccination Up to Date: Yes Review of Systems Cardiovascular: Chest Pain - left chest Gastrointestinal: Negative - nausea, vomiting, diarrhea Musculoskeletal: Other: - left shoulder and arm pain All Other Systems Reviewed And Are Negative: Yes Physical Exam - Summary Physical Exam Summary: Appearance: The patient is well-appearing, is in no pain distress, and is well- nourished. Eyes: Conjunctiva are clear. ENT: The hearing is grossly normal, the pharynx is normal, and the TMs are normal. There is no muffled or hoarse voice. Neck: The neck is supple and there is no lymphadenopathy. Respiratory: The chest is nontender. The lungs are clear, there are normal breath sounds, and there is no respiratory distress. Cardiovascular: Heart is regular rate and rhythm. There is no murmur. Abdomen: The abdomen is soft and nontender. There is no organomegaly. Bowel sounds: present Musculoskeletal: Strength is intact. Pain is localized to the anterior thorax. At the level of the mid sternum, the pain radiates to the neck, over the left shoulder, and is made worse by movement. Abduction is particularly painful. Moving the arm in adduction is minimally discomforting. There is pain to palpation over the anterior chest, laterally. Left trapezius is mildly tender to palpation. The area of the deltoid is mildly tender to palpation. The biceps and triceps appear to be without pain. Flexion and extension of the elbow and the wrist are not painful. Neurological: The patient is alert. Psychological: The patient displays age appropriate behavior Skin: Negative for rashes Triage Information Reviewed: Yes Vital Signs: Initial Vital Signs Temp 97.7 F 12/28/17 13:51 Pulse 63 12/28/17 13:51 Resp 18 12/28/17 13:51 BP 117/67 12/28/17 13:51 Pulse Ox 96 12/28/17 13:51 Vital Signs Reviewed: Yes Diagnostics - EKG Cardiac Rate: NL Cardiac Rhythm: Sinus: Normal - 61 bpm Ectopy: None ST Segment: Normal - Assessment/Plan Course Of Treatment: Pt is a 32 year old female with a complaint of left anterior chest pain radiating to the left shoulder and neck. Normal EKG, normal lung exam. Tender with palpation to the area in question as well as with abduction. Pt also suffers from depression and anxiety as well as Chrons disease. Differential dx: ME vs. Pneumonia vs. muscle strain. Dx: left anterior thorax muscle strain. I have given the patient a sling and an zoe wrap and given her pendulum exercises. Medications have been included in the original chart and reviewed. - Clinical Impression Provider Diagnoses: left anterior thorax muscle strain Discharge - Sign-Out/Discharge Documenting (check all that apply): Discharge - Discharge Plan Condition: Stable Disposition: HOME Patient Education Materials: Muscle Strain (ED) Referrals: Carlos Gray MD [Primary Care Provider] - Additional Instructions: WE DISCUSSED: 1. Your EKG was normal. 2. You have muscle strain of the front of your chest, shoulder and neck on the left side. 3. Use splint and zoe. 4. Warm moist heat int he morning; ice for acute pain. 5. Pendulum exercises to keep shoulder loose. 6. Follow up with your doctor in 2 weeks if you are not better. 7. Follow up at any time for increased pain, temperature, redness, disability. - Billing Disposition and Condition Condition: STABLE Disposition: HOME The documentation as recorded by the Mildred redding Jason accurately reflects the service I personally performed and the decisions made by me, Robert Lock MD.
== END 2017-12-28 15:25 | disposition home or self-care (01) ==
LOC: UCEAST 13:37
DX: S29.011A Strain of muscle and tendon of front wall of thorax, initial encounter (principal); X50.0XXA Overexertion from strenuous movement or load, initial encounter; Y93.9 Activity, unspecified; Y92.9 Unspecified place or not applicable; M25.512 Pain in left shoulder; Z87.442 Personal history of urinary calculi; F41.9 Anxiety disorder, unspecified; F32.9 Major depressive disorder, single episode, unspecified; Z88.6 Allergy status to analgesic agent; Z88.1 Allergy status to other antibiotic agents; Z88.5 Allergy status to narcotic agent; Z88.0 Allergy status to penicillin; F17.210 Nicotine dependence, cigarettes, uncomplicated
CPT/HCPCS: 93005; 99212; G0463

== ENCOUNTER 2018-02-06 12:46 | Emergency (ER) | payer OTHER ==
--- OUTSIDE RECORDS SUMMARY | 2018-02-06 14:16 | XMS REPORT ---
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 Cigarette Use Light tobacco smoker (10 or [...] Form Strength Qnty SIG Indications Ordering Provider Ketoconazole 01/27/ Active Cream 2% 30gm apply to B35.3 Sen 2018 affected [place] area twice daily Alprazolam 11/13/ Active Tablets 1mg 30tab take 2-1 F41.3 Sen 2017 s tablet [place] Herbert [...] 0000 Mirena / Active IUD placed Unknown 2011 per pt Asacol HD / Active [...] Hx Tablets 0.5mg 15tab 1/2-1 tab F41.9 Sen 2016 - s twice a [place] Herbert 06/24/ day as 2017 needed anxiety Levofloxacin 03/27/ Hx Tablets 500mg 7tabs one by J01.90 Sen 2017 - mouth HO[place] Herbert 04/03/ daily for 2017 7 days Temazepam 03/13/ Hx Capsules 15mg 14cap one [place] 2016 - s capsule by HOLLY Herbert 05/08/ mouth at 2016 bedtime as needed for insomnia Buspirone HCL 02/05/ Hx Tablets 5mg 60tab one tablet F41.9 [place] 2016 - s twice [place] Herbert 03/07/ daily 2016 Lexapro 11/13/ Hx Tablets 10mg 30tab 1 by mouth F41.3 [place] 2016 - s every day HOLLY Herbert 2016 Xanax 11/13/ Hx Tablets 0.5mg 45tab 1-2 F41.3 [place] 2016 - s tablets [place] Herbert 11/13/ twice 2018 daily as needed anxiety Oseltamivir 10/22/ Hx Capsules 75mg 10cap 1 po twice J20.9 Carlos Ynes. Phosphate 2016 - s a day for Marina, 12/11/ 5 days M.D. 2016 Klonopin 10/11/ Hx Tablets 0.5mg 30tab 2-1 F41.3 [place] 2016 - s tablet by HOLLY Herbert 11/13/ mouth 2017 twice a day as needed anxiety Gabapentin 10/10/ Hx Capsules 100mg 30cap take 1 to Sen 2016 - s 3 capsules HO[place] Herbert 10/22/ by mouth 2016 at night Trazodone HCL 09/09/ Hx Tablets 50mg 30tab 1-2 [place] 2015 - s tablets at HOLLY Herbert 10/10/ bedtime as 2017 needed. Ondansetron 06/17/ Hx Tablets 4mg 30tab dissolve R11.2 Sen 2015 - Dispers s one tablet HOLLY Herbert 06/25/ orally 2016 every 8 hours as needed for nausea. Guaifenesin ER 10/13/ Hx Tablets ER 600mg 20tab 1 by mouth J01.90 Haylee 2016 - 12HR s twice a Andriy, 05/15/ day M.D. 2016 Levofloxacin 10/13/ Hx Tablets 500mg 10tab one by J01.90 Haylee 2016 - s mouth Andriy, 01/14/ daily for M.D. 2016 10 days Sucralfate 08/01/ Hx Tablets 1gm 90tab 1 tabe by K20.9 Sen 2014 - s mouth Keon, MUSIC WRITER 08/11/ three 2017 times a day befor meals PT Seen Today 07/10/ Hx light 724.2 Carlos Olson [facility] 2010 - duty: no Marina, Exam 08/01/ Shai villaseñor 2014 lifting, prolonged standing for 1 month unless cleared Levothyroxine 07/02/ Hx Tablets 25mcg 90tab 1 po qd Carlos Olson Sodium 2010 - s Marina, 09/06/ M.D. 2012 06/28/ Hx Tablets 14-0.4mg Carlos Olson Complete 2010 - Marina, 10/29/ M.D. 2011 Tylenol 06/28/ Hx Liquid 500mg/15M Carlos Olson 2010 - L Marina, 09/06/ M.D. 2012 Day Time 08/15/ Hx Capsules 10-5-325m prn Carlos Olson Cold/Flu Relief 2008 - g Marina, 10/30/ M.D. 2010 Ibuprofen 08/15/ Hx Tablets [...] tab by Unknown 0000 - s mouth every day 2014 Ciprofloxacin / Hx Tablets 500mg Unknown HCL 0000 - 2015 Azathioprine / Hx Tablets 50mg 1 tab Bonilla, 0000 - daily Olivia , 2015 STEPHENC Ciprofloxacin / Hx Tablets 250mg one by [...] CPT Code Status Date Vaccine Lot # [id number] Given 10/29/2011 Tdap - Tetanus/Diptheria/Acellular Pertussis [id number] Given 06/28/2011 Influenza Virus 3Yrs & Over [id number] Vital Signs Date Vital Result Comment 01/27/2018 Weight 174.25 lb Heart Rate 77 /min BP Systolic 126 mmHg BP Diastolic 76 mmHg Body Temperature 96.9 F O2 % BldC Oximetry 98 % 12/22/2017 Weight 173.50 lb Heart Rate 80 [...] 03/16/2011 Lipase 37 U/L 22-51 [facility] Quantitative 88508.0 MIU/ML High 0-5 36 C Reactive Protein 1.9 mg/dL High Less Than 0.5 Urinalysis 03/16/2011 Ua Color YELLOW Yellow Appearance-Urine CLEAR Clear Specific [place]-Ur 1.012 1.010-1.030 Esterase-Urine NEGATIVE Negative Nitrite NEGATIVE Negative Nckaunudpzgr-Tc-VCK NEGATIVE Negative Protein-Urine NEGATIVE Negative PH-Urine 6.5 [...] Color YELLOW Yellow Appearance-Urine CLEAR Clear Specific [place]-Ur 1.004 Low 1.010-1.030 Esterase-Urine TRACE Negative Nitrite NEGATIVE Negative Uigrmtmsobav-Yl-YEQ NEGATIVE Negative Protein-Urine NEGATIVE Negative PH-Urine 6.0 5-9 Blood-Urine NEGATIVE Negative Ketones-Urine TRACE Negative Bilirubin-Ur NEGATIVE Negative Glucose-Urine NEGATIVE Negative WBC-Urine 3-5 0-5 RBC-Urine 1-3 0-2 Epith Cells-Ur FEW None Bacteria-Urine TRACE None Amorphous Sed-U TRACE None Crystals-Urine (SEE NOTE) None 41 Laboratory test finding 03/13/2011 [facility] Quantitative 63291.0 MIU/ML High 0 -5 42 Comp Metabolic [...] 25.15-38.53 finding Laboratory test 02/25/2011 [facility] Quantitative 21820.0 MIU/ML High 0-5 46 finding CBC No [...] YELLOW Yellow W/Microscopic Appearance-Urine CLEAR Clear Specific [place]-Ur 1.011 1.010-1.030 Esterase-Urine 1+ Negative Nitrite NEGATIVE Negative Iufvjbspnbrc-Ic-ICK NEGATIVE Negative Protein-Urine NEGATIVE Negative PH-Urine 6.0 5-9 Blood-Urine 3+ Negative Ketones-Urine NEGATIVE Negative Bilirubin-Ur NEGATIVE Negative Glucose-Urine NEGATIVE Negative WBC-Urine 1-3 0-5 RBC-Urine 10-15 0-2 Epith Cells-Ur MODERATE None Bacteria-Urine 2+ None Amorphous Sed-U TRACE None HCG () Urine Stat 02/01/2010 Specific [place] 1.011 1.010-1.030 Urine NEGATIVE Negative 50 CBC [...] Color YELLOW Yellow Appearance-Urine CLEAR Clear Specific [place]-Ur 1.011 1.010-1.030 Esterase-Urine TRACE Negative Nitrite NEGATIVE Negative Ihlynjsxqwop-Vk-VCA NEGATIVE Negative Protein-Urine NEGATIVE Negative PH-Urine 6.5 5-9 Blood-Urine 3+ Negative Ketones-Urine NEGATIVE Negative Bilirubin-Ur NEGATIVE Negative Glucose-Urine NEGATIVE Negative WBC-Urine 0-2 0-5 RBC-Urine TNTC 0-2 Mucus Urine SMALL None Epith Cells-Ur FEW None HCG () Urine Stat 01/11/2010 Specific [place] 1.006 Low 1.010- 1.030 Urine NEGATIVE Negative [...] (or dialysis) 3 Acute inflammation: >10.00 4 [facility] Severe Sepsis and Septic Shock Management Bundle Measure requires all lactic acids initially measuring >2.0 mmol/L be repeated. 5 SEE RESULT BELOW Name: SANDRA FELIZ : [address]: Lawanda Honeycutt MD Acct: [id number] Unit: [id number] AGE: 30 Location: [place] [address]- Re06/12/16 Dis: 06/15/16 SEX: F Status: DIS Rox SPEC: [id number] JB: 06/12/[address]: Curtis Almazan MD REQ: [id number] RECD: 06/12/16 STATUS: CRUZITO MERCEDES DR: Carlos Gray III, MD _ SOURCE: BLOOD,VENO SPDESC: ORDERED: Blood Cult Procedure Result Reported Site Aerobic Culture Bottle Final 06/17/16- 1312 ML No Growth Day 5 Anaerobic Culture Bottle Final 06/17/16- 1312 ML No Growth Day 5 * ML - MAIN LAB ([facility]) . END OF REPORT * ML=Testing performed at Main Lab DEPARTMENT OF PATHOLOGY, [address] [place] [address] Cesario Vera M.D. Director [facility] # [id number] 6 Because ethnic data is not always [...] Range <145 8 SEE RESULT BELOW Name: CLAIRESANDRA : [address]: Randolph Ortiz MD Acct: [id number] Unit: [id number] AGE: 29 Location: [facility] Re11/13/15 SEX: F Status: DEP ER SPEC: [id number] JB: 11/13/[address] [facility] [address]: Randolph Ortiz MD REQ: [id number] RECD: 11/14/15 STATUS: CRUZITO MERCEDES DR: Carlos Gray III, MD _ SOURCE: URINE [facility]: ORDERED: Urine Culture Procedure Result Reported Site Urine Culture Final 11/15/15- 0849 ML No growth of clinically significant organisms * ML - MAIN LAB ([facility]) . END OF REPORT * ML=Testing performed at Main Lab DEPARTMENT OF PATHOLOGY, [address] [place] [address] Cesario Vera M.D. Director [facility] # [id number] 9 Mixing Machine Feeder: [id number] JUDY AVILES The combination welder apprentice and regulatory agencies both recommend that a throat culture for beta strep be performed if a Rapid Group A Strep assay yields a negative result. Therefore a culture will be automatically performed on all negative samples. 10 SEE RESULT BELOW Name: SANDRA FELIZ : [address]: Randolph Ortiz MD Acct: [id number] Unit: [id number] AGE: 29 Location: [facility] Re10/09/15 SEX: F Status: DEP ER SPEC: [id number] JB: 10/09/[address] [facility] [address]: Randolph Ortiz MD REQ: [id number] RECD: 10/10/15 STATUS: CRUZITO MERCEDES DR: Carlos Gray III, MD _ SOURCE: THROAT SPDESC: ORDERED: Throat Beta Str Procedure Result Reported Site Throat Beta Strep Culture Final 10/12/15- 1150 ML Negative For Group A Beta Streptococcus * ML - MAIN LAB ([facility]) . END OF REPORT * ML=Testing performed at Main Lab DEPARTMENT OF PATHOLOGY, [address] [place] [address] Cesario Vera M.D. Director [facility] # [id number] 11 SEE RESULT BELOW Name: LALITHASANDRA EVANS : [address]: Yudelka Hoang Acct: [id number] Unit: [id number] AGE: 29 Location: [facility] Re02/15/15 SEX: F Status: DEP ER SPEC: [id number] JB: 02/15/[address]: Yudelka Briceno DO REQ: [id number] RECD: 02/16/15 STATUS: CRUZITO MERCEDES DR: [facility] Carlos Gray III, MD _ SOURCE: URINE SPDESC: ORDERED: Urine Culture Procedure Result Verified Site Urine Culture Final 02/18/15- 823 ML No Growth Day 2 (<1,000 CFU/mL) * ML - MAIN LAB ([facility]) . END OF REPORT * ML=Testing performed at Main Lab DEPARTMENT OF PATHOLOGY, [address] [place] [address] Cesario Vera M.D. Director [facility] # [id number] 12 RUN DATE: 01/01/15 [facility] LAB LIVE PAGE 1 RUN TIME: [address] [place], [place] [address] Specimen Inquiry Name: SANDRA FELIZ : [address]: Uriel Cordero MD Acct: [id number] Unit: [id number] AGE: 29 Location: [facility] Re12/30/14 SEX: F Status: DEP ER SPEC: [id number] JB: 12/30/14-[address] [facility] [address]: Giselle Bey NP REQ: [id number] RECD: 12/30/14-1322 STATUS: CRUZITO MERCEDES DR: Uriel Gray III, MD _ SOURCE: URINE SPDESC: ORDERED: Urine Culture Procedure Result Verified Site Urine Culture Final 01/01/15- 1139 ML No Growth Day 2 (<1,000 CFU/mL) * ML - MAIN LAB ([facility]) . END OF REPORT * ML=Testing performed at Main Lab DEPARTMENT OF PATHOLOGY, [facility] [place], [place] [address] Cesario Vera M.D. Director [facility] # [id number] RUN DATE: 03/02/14 [facility] LAB LIVE PAGE 1 RUN TIME: [address] [place] [address] Specimen Inquiry Name: SANDRA FELIZ : [address]: Robert Stewart MD Acct: [id number] Unit: [id number] AGE: 28 Location: [facility] Re02/27/14 SEX: F Status: DEP ER SPEC: [id number] JB: 02/27/14-[address] [facility] [address]: Robert Stewart MD REQ: [id number] RECD: 02/28/14-8669 STATUS: CRUZITO MERCEDES DR: Carlos Gray III, MD _ SOURCE: URINE SPDESC: ORDERED: Urine Culture Procedure Result Verified Site Urine Culture Final 03/02/14- 927 ML Organism 1 KLEBSIELLA PNEUMONIAE [place] Count 10-25,000 (Moderate) CFU/ML Organism 2 NORMAL MARANDA [place] Count 1-10,000 (Few) CFU/ML 1. KLEBSIELLA PNEUMONIAE [...] performed at Main Lab DEPARTMENT OF PATHOLOGY, [facility] [place], [place] [address] Cesario Vera M.D. Director [facility] # [id number] RUN DATE: 11/26/13 [facility] LAB LIVE PAGE 1 RUN TIME: 902 [facility] [employer] [place], [place] [address] Specimen Inquiry Name: SANDRA FELIZ : [address]: Lilia Jolly MD Acct: [id number] Unit: [id number] AGE: 27 Location: [facility] Re11/23/13 SEX: F Status: DEP ER SPEC: [id number] JB: 11/23/13-[address] [facility] [address]: Lilia Jolly MD REQ: [id number] RECD: 11/24/13-1100 STATUS: CRUZITO MERCEDES DR: Carlos Gray III, MD _ SOURCE: URINE SPDESC: ORDERED: Urine Culture Procedure Result Verified Site Urine Culture Final 11/26/13- 901 ML Organism 1 NORMAL MARANDA [place] Count 10-25,000 (Moderate) CFU/ML END OF REPORT * ML=Testing performed at Main Lab DEPARTMENT OF PATHOLOGY, [facility] [place], [place] [address] Cesario Vera M.D. Director [facility] Permit #[id number] 15 RUN DATE: 08/18/13 [facility] LAB LIVE PAGE 1 RUN TIME: [address] [place] [address] Specimen Inquiry Name: SANDRA FELIZ : [address]: Robert Stewart MD Acct: [id number] Unit: [id number] AGE: 27 Location: [facility] Re08/16/13 SEX: F Status: REG ER SPEC: [id number] JB: 08/16/[address] [facility] [address]: Giselle Bey NP REQ: [id number] RECD: 08/17/13 STATUS: RES OTHR DR: Robert [...] is requested. Contact the Microbiology Department at [phone]. TEST LIMITATIONS: As with all diagnostic procedures, the results obtained should be used in conjunction with other clinical CONTINUED ON NEXT PAGE * ML=Testing performed at Main Lab DEPARTMENT OF PATHOLOGY, [facility] [place], [place] [address] Cesario Vera M.D. Director [facility] Permit #[id number] RUN DATE: 08/18/13 [facility] LAB LIVE PAGE 2 RUN TIME: 1414 [facility] [employer] [place], [place] [address] Specimen Inquiry Patient: SANDRA FELIZ [id number] (Continued) Specimen: [id number] Collected: 08/16/13-2099 Received: 08/17/13-1047 (Continued) Procedure Result [...] performed at Main Lab DEPARTMENT OF PATHOLOGY, [facility] [place], [place] [address] Cesario Vera M.D. Director [facility] Permit #[id number] 16 RUN DATE: 08/20/13 [facility] LAB LIVE PAGE 1 RUN TIME: 9904 [facility] [employer] [place], [place] [address] Specimen Inquiry Name: SANDRA FELIZ : [address]: Robert Stewart MD Acct: [id number] Unit: [id number] AGE: 27 Location: [facility] Re08/16/13 SEX: F Status: REG ER SPEC: [id number] JB: 08/16/[address] [facility] [address]: Giselle Bey NP REQ: [id number] RECD: 08/17/13 STATUS: CRUZITO MERCEDES DR: Robert [...] result may have adverse psychosocial impact, the [facility] recommends retesting by a method using an [...] performed at Main Lab DEPARTMENT OF PATHOLOGY, [facility] [place] [address] Cesario Vera M.D. Director [facility] Permit #[id number] RUN DATE: 08/20/13 [facility] LAB LIVE PAGE 2 RUN TIME: [address] [place] [address] Specimen Inquiry Patient: SANDRA FELIZ [id number] (Continued) Specimen: [id number] Collected: 08/16/13 Received: 08/17/13-1158 (Continued) Procedure Result Verified Site GC (N. gonorrhoeae) RNA Final (continued) 08/20/13- 9591 Performance characteristics for detecting C. trachomatis and N. gonorrhoeae are derived from high prevalence populations. Positive results in low prevalence populations should be interpreted carefully with the understanding that the likelihood of a false positive may be higher than a true positive. END OF REPORT * ML=Testing performed at Main Lab DEPARTMENT OF PATHOLOGY, [address] [place] [address] Cesario Vera M.D. [facility] Permit #[id number] 17 RUN DATE: 08/19/13 [facility] LAB LIVE PAGE 1 RUN TIME: [address] [place] [address] Specimen Inquiry Name: SANDRA FELIZ : [address]: Robert Stewart MD Acct: [id number] Unit: [id number] AGE: 27 Location: [facility] Re08/16/13 SEX: F Status: REG ER SPEC: [id number] JB: 08/16/13-[address] [facility] [address]: Giselle Bey NP REQ: [id number] RECD: 08/17/13 STATUS: CRUZITO MERCEDES DR: Robert Gray III, MD _ SOURCE: URINE SPDESC: ORDERED: Urine Culture Procedure Result Verified Site Urine Culture Final 08/19/13- 1015 ML Organism 1 NORMAL MARANDA [place] Count >100,000 (Many) CFU/ML END OF REPORT * ML=Testing performed at Main Lab DEPARTMENT OF PATHOLOGY, [facility] [place], [place] [address] Cesario Vera M.D. Director [facility] Permit #[id number] 18 RUN DATE: 08/20/13 [facility] LAB LIVE PAGE 1 RUN TIME: [address] [place] [address] Specimen Inquiry Name: SANDRA FELIZ : [address]: Robert Stewart MD Acct: [id number] Unit: [id number] AGE: 27 Location: [facility] Re08/16/13 SEX: F Status: REG ER SPEC: [id number] JB: 08/16/[address]: Giselle Bey NP REQ: [id number] RECD: 08/17/13 STATUS: CRUZITO MERCEDES DR: Robert [...] performed at Main Lab DEPARTMENT OF PATHOLOGY, [address] [place] [address] Cesario Vera M.D. Director [facility] Permit #[id number] RUN DATE: 08/20/13 [facility] LAB LIVE PAGE 2 RUN TIME: [address] [place], [place] [address] Specimen Inquiry Patient: SANDRA FELIZ [id number] (Continued) Specimen: [id number] Collected: 08/16/13 Received: 08/17/13-1047 (Continued) Procedure Result Verified Site [...] is requested. Contact the Microbiology Department at [phone]. TEST LIMITATIONS: As with all diagnostic procedures, [...] performed at Main Lab DEPARTMENT OF PATHOLOGY, [address] [place] [address] Cesario Vera M.D. Director [facility] Permit #[id number] 19 Because ethnic data is not always [...] 0.06 ng/mL NOT SUPPORTIVE OF DIAGNOSIS OF MS 0.06 - 0.50 ng/ml INDETERMINATE: SUGGEST SERIAL STUDIES IF CLINICALLY INDICATED. Greater than 0.5 ng/mL CONSISTENT WITH DIAGNOSIS OF MS . [address] 1 25 Anion [...] method. . 37 ---- RUN DATE: 03/15/11 [facility] NMI LIVE PAGE 1 RUN TIME: 1303 Specimen Inquiry RUN USER: INTERFACE -- Name: SANDRA FELIZ#: [id number] Status: DIS Rox Re03/14/11 Age/Sex: 25/F Unit#: [id number] Location: [facility] : [birth year] -- Specimen: [id number] Spec Date: 03/14/[address]: Robert morgan MD Spec Type: SURGICAL P Received: 03/14/11-2391 Copies to: CYTOLOGY Carlos Cherry MD SPECIMEN 1) RIGHT TUBAL CYST 2) APPENDIX HISTORY PRE-OP DIAGNOSIS: Rule out appendicitis GROSS DESCRIPTION 1) The specimen is received in formalin labelled Sandra Feliz, Right Tubal Cyst, and consists of one cystic structure with clear fluid measuring 1.5 x 0.8 x 0.8 cm. Submitted entirely, one cassette labelled 1. 2) The specimen is received in formalin labelled Sandra Feliz, Appendix, and consists of an appendix measuring 5.0 cm. in length and 0.8 cm. in diameter with a slight congested serosal surface and with stapled margin. Journeyman Pressman section, one cassette labelled 2. DIAGNOSIS 1) Right paratubal cyst, cystectomy: Paratubal cyst. 2) Appendix, appendectomy: A. Appendix with fecalith. B. No evidence of acute appendicitis. Signed Electronically by: MEHNAZ BHAGAT 03/15/11 1302 -- -- DEPARTMENT OF PATHOLOGY, [address] [place] [address] [facility] Permit #[id number] Cesario Vera M.D. Director Mehnaz Bhagta M.D. Gang Drill Press Operator Dir tico -- 38 MODERATE (1 TO [...] primary infection with EBV. Test Performed by: [facility] Dpt of Lab Med and Pathology [address] [place] [address] Commercial Loan Manager: Waylon Floyd III, M.D. 48 >100^>100,000 ORGANISMS/ML [...] change was based on recommendations from the [place] [employer]. 53 Please note change in [...] Location Provider CPT E/M Dx Office Visit 12/22/2017 8:40a [facility] [place] [address] F41.9 Jesika F33.9 Office Visit 11/13/2017 10:20a [facility] [place], MUSIC WRITER [address] F41.9 [place] F33.9 Office Visit 10/13/2017 10:20a [facility] - [place], MUSIC WRITER [address]898 F41.9 [place] F33.9 Office Visit 09/10/2017 9:20a [facility] - [place], MUSIC WRITER 07753 F41.9 [place] F33.9 L29.8 Office Visit 08/11/2017 10:40a [facility] - [place], MUSIC WRITER 29431 J01.90 [place] F41.9 F43.21 M54.5 Office Visit 07/10/2017 11:20a [facility] - [place], MUSIC WRITER [address] F41.9 [place] F43.21 M54.5 Office Visit 06/10/2017 10:40a [facility] - [place], MUSIC WRITER 14571 F41.9 [place] F43.21 G47.00 Office Visit 05/08/2017 4:00p [facility] - [place], MUSIC WRITER 40465 F41.9 [place] F43.21 Office Visit 03/27/2017 2:20p [facility] [place], MUSIC WRITER 34865 F41.9 [place] F43.21 J01.90 Office Visit 03/07/2017 10:20a [facility] - [place], MUSIC WRITER 33034 F41.9 [place] F43.21 G47.00 Office Visit 02/05/2017 10:40a [facility] - [place], MUSIC WRITER [address]3967 F41.9 [place] F43.21 Office Visit 01/08/2017 9:20a [facility] - [place], MUSIC WRITER 76661 F41.9 [place] Office Visit 12/11/2016 9:20a [facility] - [place], MUSIC WRITER [address]2573 F41.3 [place] F43.21 Office Visit 11/13/2016 2:00p [facility] - [place], MUSIC WRITER [address]8822 F41.3 [place] F43.21 Office Visit 10/22/2016 2:20p [facility] Carlos Gray, [address] J20.9 - Elva Gibbons Office Visit 10/11/2016 3:20p [facility] Sen Herbert, [place] [address] F43.21 - [place] F41.3 Office Visit 06/17/2016 4:00p [facility] [place] [address] R11.2 [place] A02.9 K50.90 Office Visit 06/15/2016 1:27p [facility] [place] [address] R10.31 Assoc,pc Hospitalists R11.2 R19.7 K50.90 Office Visit 06/12/2016 1:25p [facility] Assoc,pc Mami Montano N.P. 27689 R10.31 Hospitalists R19.7 R11.2 K50.90 Office Visit 05/15/2016 4:20p [facility] [place] [address] R53.83 [place] N92.6 Office Visit 02/13/2016 2:40p [facility] Carlos Gray, 76091 H92.02 - Jesika Gibbons Office Visit 01/15/2016 5:20p [facility] Carlos Gray, 22576 J06.9 - Jesika Gibbons Office Visit 10/13/2015 4:20p [facility] Haylee Ashraf M.D. 53119 J01.90 - Jesika J20.9 Office Visit 08/01/2015 1:30p [facility] [place] [address] K20.9 Jesika R12 Office Visit 01/25/2014 11:20a [facility] Carlos Gray, 00225 555.1 - Jesika Gibbons Office Visit 09/06/2013 2:20p [facility] Carlos Gray, 85281 784.1 - Jesika Gibbons Office Visit 01/30/2012 2:45p [facility] Gurwinder Boggs M.D. 53362 719.47 [facility] [place] Office Visit 10/29/2011 2:20p [facility] Carlos Gray, 91358 784.2 - Jesika Gibbons V06.1 244.9 Office Visit 07/10/2011 3:40p DO Not Use Distance Learning Program Coordinator At [facility], [address] 724.2 [facility] 06/28/2011 9:20a DO Not Use Distance Learning Program Coordinator At [facility], 53638 V04.81 [facility]9 553.20 724.2 Office Visit 05/14/2011 4:15p DO Not Use Distance Learning Program Coordinator At [facility], N.P. 87146 724.2 [facility] Office Visit 10/30/2010 3:00p DO Not Use Distance Learning Program Coordinator At [facility], 07763 V70.3 [facility] 08/15/2009 3:30p DO Not Use Distance Learning Program Coordinator At [facility], 93387 465.9 [facility]3 592.9 Plan of Care Future Appointment(s):02/26/2018 10:20 am - Sen Herbert NP at [facility]01/27/2018 - Sen Herbert NPF41.9 Anxiety disorder, unspecifiedComments:Continue seeing your counselor and Dr. Priest as scheduled. Continue exercising regularly.Follow up:1 kvcnwI05.9 Major depressive disorder, recurrent, alywabyehbeD11.00 Insomnia, unspecifiedComments:If you would like to try one of the other medications we discussed (Sonata or Lunesta) let me know.B35.3 Tinea pedisNew Medication:Ketoconazole 2 %Comments:Try using the ketoconazole to the area. If there is no improvement let me know.
[2018-02-06 14:24] VITALS: BP 115/76
[2018-02-06] MEDS ORDERED: methylPREDNISolone 125 MG* 2 ML VIAL IV ONE (14:48)
--- NOTE | 2018-02-06 15:13 | ED ---
Allergic Reaction/Systemic - HPI Summary HPI Summary: 32 yo WF c/o generalized pruritic erythematous rash, states she is allergic to the sun and and is breaking out especially after the recent heat wave - History of Current Complaint Chief Complaint: UCRash Time Seen by Provider: 02/06/18 14:19 Hx Obtained From: Patient Hx Last Menstrual Period: states does not get period bc Mirena Onset/Duration: Sudden Onset Severity Initially: Moderate Severity Currently: Moderate Pain Intensity: 0 Location: Diffuse Aggravating Factor(s): Heat Alleviating Factor(s): Antihistamines Associated Signs And Symptoms: Positive: Negative - Allergies/Home Medications Allergies/Adverse Reactions: Allergies Allergy/AdvReac Type Severity Reaction Status Date / Time amoxicillin Allergy Severe Swelling Verified 02/06/18 14:14 Of Face,Lips,& Throat erythromycin base Allergy Severe Swelling Verified 02/06/18 14:14 Of Face,Lips,& Throat Penicillins Allergy Severe Swelling Verified 02/06/18 14:14 Of Face,Lips,& Throat codeine [From Robitussin A-C] Allergy Mild scratchy Verified 02/06/18 14:14 throat guaifenesin Allergy Mild scratchy Verified 02/06/18 14:14 [From Robitussin A-C] throat ibuprofen Allergy See Comment Verified 02/06/18 14:14 morphine Allergy Hives Verified 02/06/18 14:14 azithromycin AdvReac Mild Nausea Verified 02/06/18 14:14 doxycycline AdvReac Abdominal Verified 02/06/18 14:14 Pain Home Medications: Home Medications diPHENhydraMINE PO* [Benadryl PO 50 MG CAP*] 50 mg PO BEDTIME PRN 02/06/18 [ History Confirmed 02/06/18] PMH/Surg Hx/FS Hx/Imm Hx Previously Healthy: Yes Endocrine/Hematology History: Reports: Hx Thyroid Disease - during Denies: Hx Diabetes Cardiovascular History: Denies: Hx Congestive Heart Failure, Hx Hypertension Respiratory History: Denies: Hx Asthma, Hx Chronic Obstructive Pulmonary Disease (COPD) GI History: Reports: Hx Crohn's Disease Denies: Hx Ulcer History: Reports: Hx Kidney Stones, Hx Renal Disease - MULTIPLE BOUTS OF RENAL LITHIASES Neurological History: Reports: Hx Headaches - Surgical History Surgery Procedure, Year, and Place: APPENDECTOMY, CYST ON URETHRA, left KIDNEY STONE, left Kidney ABLATION X 3 Infectious Disease History: No Infectious Disease History: Reports: History Other Infectious Disease - Salmonella Denies: Hx Clostridium Difficile, Hx Hepatitis, Hx Human Immunodeficiency Virus (HIV), Hx of Known/Suspected MRSA, Hx Shingles, Hx Tuberculosis, Hx Known/ Suspected VRE, Hx Known/Suspected VRSA, Traveled Outside the [place] in Last 30 Days - Family History Known Family History: Positive: Cardiac Disease - maternal grandmother and grandfather, Hypertension - mother, Diabetes, Respiratory Disease - Social History Alcohol Use: None Substance Use Type: Reports: None Smoking Status (MU): Heavy Every Day Tobacco Smoker Type: Cigarettes Amount Used/How Often: 1/2 ppd Length of Time of Smoking/Using Tobacco: 10 Years Have You Smoked in the Last Year: Yes Review of Systems Constitutional: Negative Eyes: Negative ENT: Negative Cardiovascular: Negative Respiratory: Negative Gastrointestinal: Negative Genitourinary: Negative Musculoskeletal: Negative Positive: Rash Neurological: Negative All Other Systems Reviewed And Are Negative: Yes Physical Exam Triage Information Reviewed: Yes Vital Signs On Initial Exam: Initial Vitals Temp Pulse Resp BP Pulse Ox 36.7 C 76 16 115/76 99 02/06/18 14:16 02/06/18 14:16 02/06/18 14:16 02/06/18 14:16 02/06/18 14:16 Vital Signs Reviewed: Yes Completion Of Physical Exam Limited Due To: Dementia Appearance: Positive: Well-Appearing Skin: Positive: Warm, Other - 2-4mm raised erythematous pruritic rash diffuse in arms, trunk , abd, erythema of face Eyes: Positive: Normal ENT: Positive: Normal ENT inspection Neck: Positive: Supple Respiratory/Lung Sounds: Positive: Clear to Auscultation Cardiovascular: Positive: Normal Musculoskeletal: Positive: Normal Neurological: Positive: Normal Psychiatric: Positive: Normal Diagnostics - Vital Signs Vital Signs Temp Pulse Resp BP Pulse Ox 02/06/18 14:16 36.7 C 76 16 115/76 99 - Laboratory Lab Statement: Any lab studies that have been ordered have been reviewed, and results considered in the medical decision making process. Allergic Reaction Course/Dx - Course Assessment/Plan: improved with IV solumedrol. prescribed topical steroid and Medrol dose ariana - Diagnoses Provider Diagnoses: Sun allergy Discharge - Sign-Out/Discharge Documenting (check all that apply): Discharge/Admit/Transfer - Discharge Plan Condition: Stable Disposition: HOME Prescriptions: Betamethasone Mira 0.1% CM(NF) [Valisone 0.1% CM(NF)] 1 applic TOPICAL BID PRN 10 Days #1 tube PRN Reason: Rash methylPREDNISolone [Medrol] 4 mg PO .SEE ARIANA INSTRUCTION 6 Days #21 [email or web address] Patient Education Materials: Allergies (ED) Referrals: Carlos Gray MD [Primary Care Provider] - Additional Instructions: follow up with [facility] in one week - Billing Disposition and Condition Condition: STABLE Disposition: HOME
== END 2018-02-06 15:10 | disposition home or self-care (01) ==
LOC: UCEAST 12:46
DX: L56.8 Other specified acute skin changes due to ultraviolet radiation (principal); K50.90 Crohn's disease, unspecified, without complications; Z88.6 Allergy status to analgesic agent; Z88.1 Allergy status to other antibiotic agents; Z88.5 Allergy status to narcotic agent; Z88.0 Allergy status to penicillin; Z87.442 Personal history of urinary calculi; F17.210 Nicotine dependence, cigarettes, uncomplicated
CPT/HCPCS: 96374; 99212; G0463; J2930

== ENCOUNTER 2018-03-01 16:58 | Emergency (ER) | payer OTHER ==
--- OUTSIDE RECORDS SUMMARY | 2018-03-01 17:16 | XMS REPORT ---
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 Cigarette Use Light tobacco smoker (10 [...] Form Strength Qnty SIG Indications Ordering Provider Hydroxyzine HCL 02/26/ Active Tablets 50mg 120ta 1-2 L29.8 Sen 2017 bs tablets 4 Keon, HOLLY times daily as needed Ketoconazole 01/27/ Active Cream 2% 30gm apply to B35.3 Sen 2018 affected HOLLY Herbert area twice daily Alprazolam 11/13/ Active Tablets 1mg 60tab take 10/07- F41.3 Sen 2017 s tablet HOLLY Herbert twice daily as needed Lexapro 01/08/ Active Tablets 20mg 30tab 1 by mouth F41.3 Sen 2016 s every day HOLLY Herbert Flonase Allergy 10/13/ Active Suspension 50mcg/Act 16uni spray 1 J01.90 Sen Relief 2015 ts spray in HOLLY Herbret each nostril twice daily Pantoprazole 08/01/ Active Tablets DR 40mg 30tab 1 by mouth K20.9 Sen Sodium 2014 s every day HOLLY Herbert Tylenol / Active Tablets 325mg as needed Unknown 0000 Mirena / Active IUD placed Unknown 2011 per pt Asacol HD / Active Tablets DR 800mg 1 tab po Bonilla, 0000 three Olivia times Petra, daily PA-C Bupropion HCL / Active Tablets ER 300mg 1 by mouth Unknown ER (XL) 0000 24HR every day Hydroxyzine HCL 09/10/ Hx Tablets 25mg 60tab 1-2 L29.8 Sen 2016 - s tablets by HOLLY Herbert 02/26/ mouth 2018 every 6-8 hours as needed Levofloxacin 08/11/ Hx Tablets 500mg 7tabs one [...] Hx Tablets 50mg 28tab 1-2 M54.5 Sen 2016 - s tablets HOLLY Herbert 07/22/ every [...] Temazepam 03/13/ Hx Capsules 15mg 14cap one [place] 2016 - s capsule by HOLLY Herbert 05/08/ mouth at 2016 bedtime as needed for insomnia Buspirone HCL 02/05/ Hx Tablets 5mg 60tab one tablet F41.9 Sen 2016 - s twice HOLLY Herbert 03/07/ daily 2016 Lexapro 11/13/ Hx Tablets 10mg 30tab 1 by mouth F41.3 Sen 2016 - s every day HOLLY Herbert 2016 Xanax 11/13/ Hx Tablets 0.5mg 45tab 1-2 F41.3 Sen 2016 - s tablets HOLLY Herbert 11/13/ twice 2018 daily as needed anxiety Oseltamivir 10/22/ Hx Capsules 75mg 10cap 1 po twice J20.9 Carlos Olson Phosphate 2016 - s a day for Marina, 12/11/ 5 days M.D. 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 Hydrocodone/Elias / Hx Tablets 5-500mg 100ta one or two Unknown taminophen 0000 - bs po every 4 01/25/ - 6 hours 2013 prn pain Asacol HD / Hx Tablets DR 800mg 3 tabs Unknown 0000 - three 08/01/ times a 2014 day Azathioprine 00/ Hx Tablets 50mg 90tab 1/2 tab by Unknown 0000 - s mouth every day 2014 Ciprofloxacin 00/ Hx Tablets 500mg Unknown HCL 0000 - 2015 Azathioprine 00/ Hx Tablets 50mg 1 tab Bonilla, 0000 - daily Olivia Petra, 2016 PA-C Ciprofloxacin / Hx Tablets 250mg one by [...] 0000 - 24HR s every day 2017 Benadryl / Hx Tablets 25mg 1-2 tabs Unknown Allergy 0000 - twice a day for 2017 itching Medications Administered in Office Medication Date Status Form Strength Qnty SIG Indications Ordering Provider Influenza Administered Injection Unknown Virus Vaccine 014 Immunizations CPT Code Status Date Vaccine Lot # [id number] Given 10/29/2011 Tdap - Tetanus/Diptheria/Acellular Pertussis [id number] Given 06/28/2011 Influenza Virus 3Yrs & Over [id number] Vital Signs Date Vital Result Comment 02/26/2018 Weight 172.00 lb Heart Rate 63 /min BP Systolic 126 mmHg BP Diastolic 76 mmHg Body Temperature 96.4 F O2 % BldC Oximetry 95 % 01/27/2018 Weight 174.25 lb Heart Rate 77 [...] 03/16/2011 Lipase 37 U/L 22-51 [facility] Quantitative 50252.0 MIU/ML High 0-5 36 C Reactive Protein 1.9 mg/dL High Less Than 0.5 Urinalysis 03/16/2011 Ua Color YELLOW Yellow Appearance-Urine CLEAR Clear Specific [place]-Ur 1.012 1.010-1.030 Esterase-Urine NEGATIVE Negative Nitrite NEGATIVE Negative Ktqrhmlxkvyh-Bb-XJW NEGATIVE Negative Protein-Urine NEGATIVE Negative PH-Urine 6.5 [...] Color YELLOW Yellow Appearance-Urine CLEAR Clear Specific [place]-Ur 1.004 Low 1.010-1.030 Esterase-Urine TRACE Negative Nitrite NEGATIVE Negative Loyctoqrhknx-Uh-HNF NEGATIVE Negative Protein-Urine NEGATIVE Negative PH-Urine 6.0 5-9 Blood-Urine NEGATIVE Negative Ketones-Urine TRACE Negative Bilirubin-Ur NEGATIVE Negative Glucose-Urine NEGATIVE Negative WBC-Urine 3-5 0-5 RBC-Urine 1-3 0-2 Epith Cells-Ur FEW None Bacteria-Urine TRACE None Amorphous Sed-U TRACE None Crystals-Urine (SEE NOTE) None 41 Laboratory test finding 03/13/2011 [facility] Quantitative 96277.0 MIU/ML High 0 -5 42 Comp Metabolic [...] 25.15-38.53 finding Laboratory test 02/25/2011 [facility] Quantitative 05395.0 MIU/ML High 0-5 46 finding CBC No [...] YELLOW Yellow W/Microscopic Appearance-Urine CLEAR Clear Specific [place]-Ur 1.011 1.010-1.030 Esterase-Urine 1+ Negative Nitrite NEGATIVE Negative Fsjampvwzaeb-Uo-JTC NEGATIVE Negative Protein-Urine NEGATIVE Negative PH-Urine 6.0 5-9 Blood-Urine 3+ Negative Ketones-Urine NEGATIVE Negative Bilirubin-Ur NEGATIVE Negative Glucose-Urine NEGATIVE Negative WBC-Urine 1-3 0-5 RBC-Urine 10-15 0-2 Epith Cells-Ur MODERATE None Bacteria-Urine 2+ None Amorphous Sed-U TRACE None HCG () Urine Stat 02/01/2010 [place] 1.011 1.010-1.030 Urine NEGATIVE Negative 50 CBC [...] Color YELLOW Yellow Appearance-Urine CLEAR Clear Specific [place]-Ur 1.011 1.010-1.030 Esterase-Urine TRACE Negative Nitrite NEGATIVE Negative Txzigrdbcstt-Uw-PFM NEGATIVE Negative Protein-Urine NEGATIVE Negative PH-Urine 6.5 5-9 Blood-Urine 3+ Negative Ketones-Urine NEGATIVE Negative Bilirubin-Ur NEGATIVE Negative Glucose-Urine NEGATIVE Negative WBC-Urine 0-2 0-5 RBC-Urine TNTC 0-2 Mucus Urine SMALL None Epith Cells-Ur FEW None HCG () Urine Stat 01/11/2010 [place] 1.006 Low 1.010- 1.030 Urine NEGATIVE Negative [...] (or dialysis) 3 Acute inflammation: >10.00 4 [facility] Severe Sepsis and Septic Shock Management Bundle Measure requires all lactic acids initially measuring >2.0 mmol/L be repeated. 5 SEE RESULT BELOW Name: SANDRA FELIZ : [address]: Lawanda Honeycutt MD Acct: [id number] Unit: [id number] AGE: 30 Location: [place] [address]- Re06/12/16 Dis: 06/15/16 SEX: F Status: DIS Rox SPEC: [id number] JB: 06/12/16-[address] [facility] [address]: Curtis Almazan MD REQ: [id number] RECD: 06/12/16 STATUS: CRUZITO MERCEDES DR: Carlos Gray III, MD _ SOURCE: BLOOD,VENO SPDESC: ORDERED: Blood Cult Procedure Result Reported Site Aerobic Culture Bottle Final 06/17/16- 1312 ML No Growth Day 5 Anaerobic Culture Bottle Final 06/17/16- 1312 ML No Growth Day 5 * ML - [facility] ([facility]) . END OF REPORT * ML=Testing performed at Main Lab DEPARTMENT OF PATHOLOGY, [address] [place] [address] Cesario Vera M.D. Director [facility] # [id number] 6 Because ethnic data is not always [...] Range <145 8 SEE RESULT BELOW Name: ASNDRA FELIZ : [address]: Randolph Ortiz MD Acct: [id number] Unit: [id number] AGE: 29 Location: [facility] Re11/13/15 SEX: F Status: DEP ER SPEC: [id number] JB: 11/13/[address] [facility] [address]: Randolph Ortiz MD REQ: [id number] RECD: 11/14/15-110 STATUS: CRUZITO MERCEDES DR: Carlos Gray III, MD _ SOURCE: URINE SPDESC: ORDERED: Urine Culture Procedure Result Reported Site Urine Culture Final 11/15/15- 0849 ML No growth of clinically significant organisms * ML - MAIN LAB ([facility]) . END OF REPORT * ML=Testing performed at Main Lab DEPARTMENT OF PATHOLOGY, [address] [place] [address] Cesario Vera M.D. Director [facility] # [id number] Field Consultant: [id number] JUYD LUNA TRACI The director of revenue cycle management and regulatory agencies both recommend that a throat culture for beta strep be performed if a Rapid Group A Strep assay yields a negative result. Therefore a culture will be automatically performed on all negative samples. 10 SEE RESULT BELOW Name: SANDRA FELIZ : [address]: Randolph Ortiz MD Acct: [id number] Unit: [id number] AGE: 29 Location: [facility] Re10/09/15 SEX: F Status: DEP ER SPEC: [id number] JB: 10/09/[address] [facility] [address]: Randolph Ortiz MD REQ: [id number] RECD: 10/10/15 STATUS: CRUZITO MERCEDES DR: Carlos Gray III, MD _ SOURCE: THROAT SPDESC: ORDERED: Throat Beta Str Procedure Result Reported Site Throat Beta Strep Culture Final 10/12/15- 1150 ML Negative For Group A Beta Streptococcus * ML - MAIN LAB ([facility]) . END OF REPORT * ML=Testing performed at Main Lab DEPARTMENT OF PATHOLOGY, [address] [place] [address] Cesario Vera M.D. Director [facility] # [id number] 11 SEE RESULT BELOW Name: SANDRA FELIZ : [address]: Yudelka Hoang Acct: [id number] Unit: [id number] AGE: 29 Location: [facility] Re02/15/15 SEX: F Status: DEP ER SPEC: [id number] JB: 02/15/15-[address]: Yudelka Briceno DO REQ: [id number] RECD: 02/16/15 STATUS: CRUZITO MERCEDES DR: [facility] Carlos Gray III, MD _ SOURCE: URINE SPDESC: ORDERED: Urine Culture Procedure Result Verified Site Urine Culture Final 02/18/15- 823 ML No Growth Day 2 (<1,000 CFU/mL) * ML - MAIN LAB ([facility]) . END OF REPORT * ML=Testing performed at Main Lab DEPARTMENT OF PATHOLOGY, [facility] [place] [address] Cesario Vera M.D. Director AMANDE[facility] # [id number] RUN DATE: 01/01/15 [facility] LAB LIVE PAGE 1 RUN TIME: [address] [place] [address] Specimen Inquiry Name: SANDRA FELIZ : [address]: Uriel Cordero MD Acct: [id number] Unit: [id number] AGE: 29 Location: [facility] Re12/30/14 SEX: F Status: DEP ER SPEC: [id number] JB: 12/30/14-[address] [facility] [address]: Giselle Bey NP REQ: [id number] RECD: 12/30/14-1322 STATUS: CRUZITO MERCEDES DR: Uriel Gray III, MD _ SOURCE: URINE SPDESC: ORDERED: Urine Culture Procedure Result Verified Site Urine Culture Final 01/01/15- 1139 ML No Growth Day 2 (<1,000 CFU/mL) * ML - MAIN LAB ([facility]) . END OF REPORT * ML=Testing performed at Main Lab DEPARTMENT OF PATHOLOGY, [facility] [place] [address] Cesario Vera M.D. Director CLIA # [id number] RUN DATE: 03/02/14 [facility] LAB LIVE PAGE 1 RUN TIME: 927 [facility] [employer] [place], [place] [address] Specimen Inquiry Name: SANDRA FELIZ : [address]: Robert Stewart MD Acct: [id number] Unit: [id number] AGE: 28 Location: [facility] Re/25/14 SEX: F Status: DEP ER SPEC: [id number] JB: 02/27/[address] [facility] [address]: Robert Stewart MD REQ: [id number] RECD: 02/28/14 STATUS: CRUZITO MERCEDES DR: Carlos Gray III, MD _ SOURCE[facility] ORDERED: Urine Culture Procedure Result Verified Site Urine Culture Final 03/02/14- 927 ML Organism 1 KLEBSIELLA PNEUMONIAE [place] Count 10-25,000 (Moderate) CFU/ML Organism 2 NORMAL MARANDA [place] Count 1-10,000 (Few) CFU/ML 1. KLEBSIELLA PNEUMONIAE [...] performed at Main Lab DEPARTMENT OF PATHOLOGY, [facility] [place] [address] Cesario Vera M.D. Director [facility] # [id number] RUN DATE: 11/26/13 [facility] LAB LIVE PAGE 1 RUN TIME: [address] [place] [address] Specimen Inquiry Name: SANDRA FELIZ : [address]: Lilia Jolly MD Acct: [id number] Unit: [id number] AGE: 27 Location: [facility] Re11/23/13 SEX: F Status: DEP ER SPEC: [id number] JB: 11/23/[address] [facility] [address]: Lilia Jolly MD REQ: [id number] RECD: 11/24/13 STATUS: CRUZITO MERCEDES DR: Carlos Gray III, MD _ SOURCE: URINE SPDESC: ORDERED: Urine Culture Procedure Result Verified Site Urine Culture Final 11/26/13- 901 ML Organism 1 NORMAL MARANDA [place] Count 10-25,000 (Moderate) CFU/ML END OF REPORT * ML=Testing performed at Main Lab DEPARTMENT OF PATHOLOGY, [facility] [place] [address] Cesario Vera M.D. Director [facility] Permit #[id number] 15 RUN DATE: 08/18/13 [facility] LAB LIVE PAGE 1 RUN TIME: 7313 [facility] [employer] [place], [place] [address] Specimen Inquiry Name: SANDRA FELIZ : [address]: Robert Stewart MD Acct: [id number] Unit: [id number] AGE: 27 Location: [facility] Re08/16/13 SEX: F Status: REG ER SPEC: [id number] JB: 08/16/13-[address] [facility] [address]: Giselle Bey NP REQ: [id number] RECD: 08/17/13 STATUS: RES OTHR DR: Robert [...] is requested. Contact the Microbiology Department at [phone]. TEST LIMITATIONS: As with all diagnostic procedures, the results obtained should be used in conjunction with other clinical CONTINUED ON NEXT PAGE * ML=Testing performed at Main Lab DEPARTMENT OF PATHOLOGY, [facility] [place] [address] Cesario Vera M.D. Director [facility] Permit #[id number] RUN DATE: 08/18/13 [facility] LAB LIVE PAGE 2 RUN TIME: 859 [facility] [employer] [place], [place] [address] Specimen Inquiry Patient: PRABHAKAR FELIZBERLY [id number] (Continued) Specimen: [id number] Collected: 08/16/13 Received: 08/17/13 (Continued) Procedure Result Verified Site O P: Giardia/Cryptospor Screen Final (continued) 08/18/13- 1415 information available the physician. Negative results can [...] performed at Main Lab DEPARTMENT OF PATHOLOGY, [address] [place] [address] Cesario Vera M.D. Director [facility] Permit #[id number] 16 RUN DATE: 08/20/13 [facility] LAB LIVE PAGE 1 RUN TIME: [address] [place] [address] Specimen Inquiry Name: SANDRA FELIZ : [address]: Robert Stewart MD Acct: [id number] Unit: [id number] AGE: 27 Location: [facility] Re08/16/13 SEX: F Status: REG ER SPEC: [id number] JB: 08/16/[address] [facility] [address]: Giselle Bey NP REQ: [id number] RECD: 08/17/13 STATUS: CRUZITO MERCEDES DR: Robert [...] result may have adverse psychosocial impact, the CDC recommends retesting by a method using an [...] performed at Main Lab DEPARTMENT OF PATHOLOGY, [facility] [place] [address] Cesario Vera M.D. Director [facility] Permit #[id number] RUN DATE: 08/20/13 [facility] LAB LIVE PAGE 2 RUN TIME: 1333 [facility] [employer] [place], [place] [address] Specimen Inquiry Patient: SANDRA FELIZ [id number] (Continued) Specimen: [id number] Collected: 08/16/13 Received: 08/17/13 (Continued) Procedure Result Verified Site GC (N. gonorrhoeae) RNA Final (continued) 08/20/13- 5971 Performance characteristics for detecting C. trachomatis and N. gonorrhoeae are derived from high prevalence populations. Positive results in low prevalence populations should be interpreted carefully with the understanding that the likelihood of a false positive may be higher than a true positive. END OF REPORT * ML=Testing performed at Main Lab DEPARTMENT OF PATHOLOGY, [facility] [place] [address] Cesario Vera M.D. Director [facility] Permit #[id number] 17 RUN DATE: 08/19/13 [facility] LAB LIVE PAGE 1 RUN TIME: [address] [place], [place] [address] Specimen Inquiry Name: SANDRA FELIZ : [address]: Robert Stewart MD Acct: [id number] Unit: [id number] AGE: 27 Location: [facility] Re08/16/13 SEX: F Status: REG ER SPEC: [id number] JB: 08/16/13-[address] [facility] [address]: Giselle Bey NP REQ: [id number] RECD: 08/17/13 STATUS: CRUZITO MERCEDES DR: Robert Gray III, MD _ SOURCE: URINE SPDESC: ORDERED: Urine Culture Procedure Result Verified Site Urine Culture Final 08/19/13- 1015 ML Organism 1 NORMAL MARANDA [place] Count >100,000 (Many) CFU/ML END OF REPORT * ML=Testing performed at Main Lab DEPARTMENT OF PATHOLOGY, [facility] [place] [address] Cesario Vera M.D. Director [facility] Permit #[id number] 18 RUN DATE: 08/20/13 [facility] LAB LIVE PAGE 1 RUN TIME: 817 [facility] [employer] [place], [place] [address] Specimen Inquiry Name: SANDRA FELIZ : [address]: Robert Stewart MD Acct: [id number] Unit: [id number] AGE: 27 Location: [facility] Re/11/13 SEX: F Status: REG ER SPEC: [id number] JB: 08/16/[address] [facility] [address]: Giselle Bey NP REQ: [id number] RECD: 08/17/13 STATUS: CRUZITO MERCEDES DR: Robert [...] performed at Main Lab DEPARTMENT OF PATHOLOGY, [facility] [place] [address] Cesario Vera M.D. Director [facility] Permit #[id number] RUN DATE: 08/20/13 [facility] LAB LIVE PAGE 2 RUN TIME: 817 [facility] [employer] [place], [place] [address] Specimen Inquiry Patient: SANDRA FELIZ [id number] (Continued) Specimen: [id number] Collected: 08/16/13 Received: 08/17/13-1047 (Continued) Procedure Result [...] is requested. Contact the Microbiology Department at [phone]. TEST LIMITATIONS: As with all diagnostic procedures, [...] performed at Main Lab DEPARTMENT OF PATHOLOGY, [address] [place] [address] Cesario Vera M.D. Director [facility] Permit #[id number] 19 Because ethnic data is not always [...] 0.06 ng/mL NOT SUPPORTIVE OF DIAGNOSIS OF [place] 0.06 - 0.50 ng/ml INDETERMINATE: SUGGEST SERIAL STUDIES IF CLINICALLY INDICATED. Greater than 0.5 ng/mL CONSISTENT WITH DIAGNOSIS OF [place] . 24 Imm. NE 1 25 Anion [...] has been shown to interfere with the [place] method for measuring total bilirubin. Samples from [...] method. . 37 ---- RUN DATE: 03/15/11 [facility] NMI LIVE PAGE 1 RUN TIME: 1303 Specimen Inquiry RUN USER: INTERFACE -- Name: SANDRA FELIZ Status: DIS Rox Re03/14/11 Age/Sex: 25/F Unit#: [id number] Location: [facility] : [birth year] -- Specimen: [id number] [facility] Spec Date: 03/14/[address]: Robert morgan MD Spec Type: SURGICAL P Received: 03/14/11-4244 Copies to: CYTOLOGY Carlos Cherry MD SPECIMEN [...] congested serosal surface and with stapled margin. [place] [employer] section, one cassette labelled 2. DIAGNOSIS 1) Right paratubal cyst, cystectomy: Paratubal cyst. 2) Appendix, appendectomy: A. Appendix with fecalith. B. No evidence of acute appendicitis. Signed Electronically by: MEHNAZ BHAGAT 03/15/11 1302 -- -- DEPARTMENT OF PATHOLOGY, [address] [place] [address] [facility] Permit #[id number] Cesario Vera M.D. Director Mehnaz Bhagat M.D. Logistics Service Representative Dir tico -- 38 MODERATE (1 TO [...] has been shown to interfere with the [place] method for measuring total bilirubin. Samples from [...] primary infection with EBV. Test Performed by: [facility] D[facility] of Lab Med and Pathology [address] [place] [address] Director Of Hotel Operations: Waylon Floyd III, M.D. 48 >100^>100,000 ORGANISMS/ML [...] change was based on recommendations from the [place] [employer]. 53 Please note change in reference range effective 08 . 54 A metabolite of Naproxen, O-desmethylnaproxen, has been shown to interfere with the [place] method for measuring total bilirubin. Samples from [...] Location Provider CPT E/M Dx Office Visit 01/27/2018 10:20a [facility] [place] [address] F41.9 [place] F33.9 G47.00 B35.3 Office Visit 12/22/2017 8:40a [facility] [place] [address] F41.9 [place] F33.9 Office Visit 11/13/2017 10:20a [facility] [place] [address] F41.9 [place] F33.9 Office Visit 10/13/2017 10:20a [facility] [place] [address] F41.9 [place] F33.9 Office Visit 09/10/2017 9:20a [facility] [place] [address] F41.9 [place] F33.9 L29.8 Office Visit 08/11/2017 10:40a [facility] [place] [address] J01.90 [place] F41.9 F43.21 M54.5 Office Visit 07/10/2017 11:20a [facility] [place] [address] F41.9 [place] F43.21 M54.5 Office Visit 06/10/2017 10:40a [facility] [place] [address] F41.9 [place] F43.21 G47.00 Office Visit 05/08/2017 4:00p [facility] [place] [address] F41.9 [place] F43.21 Office Visit 03/27/2017 2:20p [facility] [place] [address] F41.9 [place] F43.21 J01.90 Office Visit 03/07/2017 10:20a [facility] [place] [address] F41.9 [place] F43.21 G47.00 Office Visit 02/05/2017 10:40a [facility] [place] [address] F41.9 [place] F43.21 Office Visit 01/08/2017 9:20a [facility] - Sen Herbert, [place] [address] F41.9 [place] Office Visit 12/11/2016 9:20a [facility] - 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, 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 [address] F41.3 [place] F43.21 Office Visit 11/13/2016 2:00p [facility] - Sen Herbert, [place] [address] F41.3 [place] F43.21 Office Visit 10/22/2016 2:20p [facility] Carlos Gray, [address] J20.9 - [place] MAlicia Office Visit 10/11/2016 3:20p [facility] Sen Herbert, [place] [address] F43.21 - [place] F41.3 Office Visit 06/17/2016 4:00p [facility] - Sen [place], [place] [address] R11.2 [place] A02.9 K50.90 Office Visit 06/15/2016 1:27p [facility] [place], [place] [address] R10.31 Assoc,pc Hospitalists R11.2 R19.7 K50.90 Office Visit 06/12/2016 1:25p [facility] Assoc,pc Mami Montano N.P. 25429 R10.31 Hospitalists R19.7 R11.2 K50.90 Office Visit 05/15/2016 4:20p [facility] - Sen [place], [place] [address] R53.83 [place] N92.6 Office Visit 02/13/2016 2:40p [facility] Carlos Gray, [address] H92.02 - [place] Shai Office Visit 01/15/2016 5:20p [facility] Carlos Gray, [address] J06.9 - [place] MAlicia Office Visit 10/13/2015 4:20p [facility] Haylee Ashraf M.D. 31087 J01.90 - [place] J20.9 Office Visit 08/01/2015 1:30p [facility] - Robert Carlin, [place] [address] K20.9 [place] R12 Office Visit 01/25/2014 11:20a [facility] Carlos Gray, [address] 555.1 - Jesika Gibbons Office Visit 09/06/2013 2:20p [facility] Carlos Gray, [address] 784.1 - Jesika Gibbons Office Visit 01/30/2012 2:45p [facility] Gurwinder Boggs M.D. [address] 719.47 AT [place] Office Visit 10/29/2011 2:20p [facility] Carlos Gray, [address] 784.2 - Jesika Gibbons V06.1 244.9 Office Visit 07/10/2011 3:40p [facility] Not Use [facility] [address] 724.2 [place] Gibbons 244.9 Office Visit 06/28/2011 9:20a DO Not Use [facility] [facility] [place], [address] V04.81 [place] Castillo.Lamin 244.9 553.20 724.2 Office Visit 05/14/2011 4:15p DO Not Use [facility] AT [place] [address] 724.2 [facility] Office Visit 10/30/2010 3:00p DO Not Use [facility] [address] V70.3 Jose Alejandro Castillo.Lamin Office Visit 08/15/2009 3:30p DO Not Use [facility] [address] 465.9 [place] Castillo.L[place] V70.3 592.9 Plan of Care Future Appointment(s):03/30/2018 10:20 am - Sen Herbert NP at [facility]02/26/2018 - Sen Herbert NPF41.9 Anxiety disorder, unspecifiedComments:Continue with current medications. Continue following with your counselor and Dr. Priest.Follow up:1 [id number] Major depressive disorder, recurrent, unspecified
[2018-03-01 17:24] VITALS: BP 120/69
--- NOTE | 2018-03-01 17:36 | UC ---
Throat Pain/Nasal Haroon HPI - HPI Summary HPI Summary: 32 y/o female presents to the urgent care c/o nasal congestion w/ sinus pain, yellowish nasal discharge for the past 2 weeks. She has been using Flonase nasal spray w/o any relief. About 2 dys ago she developed sore throat w/ difficulty swallowing. Pain is 8/10. She has not taking for pain. Pt has multiple antibiotic allergies. Pt thinks her +PND has cause her sore throat. Pt denies fever, dizziness, SOB, cough, abdominal pain, N/V/D. - History of Current Complaint Chief Complaint: UCGeneralIllness Stated Complaint: SORE THROAT Time Seen by Provider: 03/01/18 17:29 Hx Obtained From: Patient Hx Last Menstrual Period: states does not get period bc Mirena ?: No Onset/Duration: Gradual Onset, Lasting Weeks - 2 weeks, Worse Since - 2 days ago Severity: Severe Pain Intensity: 9 Pain Scale Used: 0-10 Numeric Cough: None Associated Signs & Symptoms: Positive: Dysphagia, Sinus Discomfort, Nasal Discharge Related History: Seasonal Allergies - Epiglottits Risk Factors Epiglottis Risk Factors: Negative - Allergies/Home Medications Allergies/Adverse Reactions: Allergies Allergy/AdvReac Type Severity Reaction Status Date / Time amoxicillin Allergy Severe Swelling Verified 03/01/18 17:28 Of Face,Lips,& Throat erythromycin base Allergy Severe Swelling Verified 03/01/18 17:28 Of Face,Lips,& Throat Penicillins Allergy Severe Swelling Verified 03/01/18 17:28 Of Face,Lips,& Throat codeine [From Robitussin A-C] Allergy Mild scratchy Verified 03/01/18 17:28 throat guaifenesin Allergy Mild scratchy Verified 03/01/18 17:28 [From Robitussin A-C] throat ibuprofen Allergy See Comment Verified 03/01/18 17:28 morphine Allergy Hives Verified 03/01/18 17:28 azithromycin AdvReac Mild Nausea Verified 03/01/18 17:28 doxycycline AdvReac Abdominal Verified 03/01/18 17:28 Pain PMH/Surg Hx/FS Hx/Imm Hx Previously Healthy: Yes GI/ History: Kidney Stones Other GI/ History: Cronhs disease Psychological History: Post Traumatic Stress Disorder - Surgical History Surgical History: Yes Surgery Procedure, Year, and Place: APPENDECTOMY, CYST ON URETHRA, left KIDNEY STONE, left Kidney ABLATION X 3 - Family History Known Family History: Positive: Cardiac Disease - maternal grandmother and grandfather, Hypertension - mother, Diabetes, Respiratory Disease - Social History Occupation: Employed Full-time Lives: With Family Alcohol Use: None Substance Use Type: None Smoking Status (MU): Heavy Every Day Tobacco Smoker Type: Cigarettes Amount Used/How Often: 1/2 ppd Length of Time of Smoking/Using Tobacco: 10 Years Have You Smoked in the Last Year: Yes - Immunization History Most Recent Influenza Vaccination: 2014 Most Recent Tetanus Shot: 2009 Most Recent Pneumonia Vaccination: never Hx Tetanus, Diphtheria Vaccination: Yes Vaccination Up to Date: Yes Review of Systems Constitutional: Negative Skin: Negative Eyes: Negative ENT: Sore Throat, Nasal Discharge, Sinus Congestion, Sinus Pain/Tenderness Respiratory: Negative Cardiovascular: Negative Gastrointestinal: Negative Genitourinary: Negative Motor: Negative Neurovascular: Negative Musculoskeletal: Negative Neurological: Headache Psychological: Negative Is Patient Immunocompromised?: No All Other Systems Reviewed And Are Negative: Yes Physical Exam - Summary Physical Exam Summary: Vitals: reviewed General: Well developed, well-nourished female patient with NAD. Head and face: Normocephalic and atraumatic, Positive tenderness over the frontal and maxillary sinuses.. Eyes: PERRLA, EOMI x 2. Normal conjunctiva. No eye discharge. ENT: Ears and TM with normal limits. Nose: edematous and erythematous nasal mucosa with with yellowish discharge and erythematous mucosa. Pharynx with erythema, no exudate. +PND yellowish Neck: Supple, no JVD, no carotid bruits and no lymphadenopathy. Lungs: clear, no rales, no rhonchi, no wheezes. CVS: RRR, S1 and S2 present no murmurs or gallops appreciated. Abdomen: soft nontender with positive bowel sounds. Extremities: no edema noted. Neuro: WNL. Skin: warm and dry Triage Information Reviewed: Yes Vital Signs: Initial Vital Signs Temp 98.1 F 03/01/18 17:21 Pulse 81 03/01/18 17:21 Resp 16 03/01/18 17:21 BP 120/69 03/01/18 17:21 Pulse Ox 99 03/01/18 17:21 Throat Pain/Nasal Course/Dx - Course Course Of Treatment: 32 y/o female presents to the urgent care c/o nasal congestion w/ sinus pain,yellowish nasal discharge for the past 2 weeks. She has been using Flonase nasal spray w/o any relief. About 2 dys ago she developed sore throat w/ difficulty swallowing. Pain is 8/10. She has not taking for pain. Pt has multiple antibiotic allergies. Pt thinks her +PND has cause her sore throat. Pt denies fever, dizziness, SOB, cough, abdominal pain, N /V/D. Hx obtained. Pt w/ acute bacterial sinusitis and pharyngitis on examination. Strep negative. Pt w/ multiple ABx allergies. Pt states she has taken Cefdinir in the past w/o any problem. Pt Rx Cefdinir PO and Tylenol PO to alleviate symptoms and advised to continue w/ flonase nasal spray and saline drops to clear sinuses. First dose of ABX given at the clinic today. Pt tolerated well medication. D/C instructions explained. Pt understood and agreed w/ plan of care. - Differential Dx/Diagnosis Differential Diagnosis/HQI/PQRI: Laryngitis, Mononucleosis, Otitis Media, Pharyngitis, Sinusitis, Tonsillitis Provider Diagnoses: 1-Acute bacterial sinusitis. 2-Pharyngitis Discharge - Sign-Out/Discharge Documenting (check all that apply): Discharge/Admit/Transfer - D/C home - Discharge Plan Condition: Stable Disposition: HOME Prescriptions: Cefdinir [Cefdinir 300 MG CAP] 300 mg PO BID #19 capsule Patient Education Materials: Pharyngitis (ED), Sinusitis (ED) Referrals: Carlos Gray MD [Primary Care Provider] - 1 Week Additional Instructions: 1- Please increase fluid intake and rest. take full course of antibiotic to avoid resistance 2-Continue using Flonase nasal spray as directed to help drain fluid. Also buy saline drops to clear sinuses 3-Take Tylenol PO to alleviates pain and swelling 4-Return to the clinic or PCP if symptoms do not improve for further management and treatment - Billing Disposition and Condition Condition: STABLE Disposition: HOME
[2018-03-01] MEDS ORDERED: Cefdinir 250mg/5 ml* 100 ml ORAL.SUSP PO ONE (17:53)
[2018-03-01] MEDS ORDERED: Acetaminophen TAB* 325 MG PO ONE (17:55)
== END 2018-03-01 18:25 | disposition home or self-care (01) ==
LOC: UCEAST 16:58
DX: J01.90 Acute sinusitis, unspecified (principal); J02.9 Acute pharyngitis, unspecified; K50.90 Crohn's disease, unspecified, without complications; F43.10 Post-traumatic stress disorder, unspecified; Z87.442 Personal history of urinary calculi; Z88.6 Allergy status to analgesic agent; Z88.1 Allergy status to other antibiotic agents; Z88.5 Allergy status to narcotic agent; Z88.0 Allergy status to penicillin; F17.210 Nicotine dependence, cigarettes, uncomplicated
CPT/HCPCS: 87651; 99212; A9270-GY; G0463

== ENCOUNTER 2018-05-19 18:07 | Emergency (ER) | payer OTHER ==
--- OUTSIDE RECORDS SUMMARY | 2018-05-19 18:13 | XMS REPORT ---
:1985 External Reference #:[id number] Author Organization [facility] 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 Cigarette Use Light tobacco smoker (10 [...] Active Tablets 50mg 120ta 1-2 L29.8 Sen 2018 bs tablets 4 HOLLY Herbert times daily as needed Ketoconazole 01/27/ Active Cream 2% 30gm apply to B35.3 Sen 2018 affected HOLLY Herbert area twice daily Alprazolam 11/13/ Active Tablets 1mg 60tab take 12-1 F41.3 Sen 2018 s tablet HOLLY Herbert twice daily as needed Lexapro 01/08/ Active Tablets 20mg 30tab Take One F41.3 Sen 2016 s Tablet By HOLLY Herbert Mouth Every Day Flonase Allergy 10/13/ Active Suspension 50mcg/Act 16uni [...] Unknown ER (XL) 0000 24HR every day Cefdinir 03/01/ Hx Capsules 300mg 19cap Twice Unknown 2018 - s Daily 2017 Hydroxyzine HCL 09/10/ Hx Tablets 25mg 60tab 1-2 L29.8 Sen 2016 - s tablets by HOLLY Herbert 02/26/ mouth 2018 every 6-8 hours as needed Levofloxacin 08/11/ Hx Tablets 500mg 7tabs one by J01.90 Sen 2017 - mouth HOLLY Herbert 08/18/ daily for 2017 7 days Baclofen 07/25/ Hx Tablets 10mg [...] s tablets HOLLY Herbert 07/22/ every 12 2017 hours as needed for pain. Clonazepam 06/10/ Hx Tablets 0.5mg 15tab 1/2-1 tab F41.9 Sen 2017 - s twice a HOLLY Herbert 06/24/ day as 2017 needed anxiety Levofloxacin 03/27/ Hx Tablets 500mg 7tabs one by J01.90 Sen 2017 - mouth HOLLY Herbert 04/03/ daily for 2016 7 days Temazepam 03/13/ Hx Capsules 15mg 14cap one Polebridge 2016 - s capsule by HOLLY Herbert 05/08/ mouth at 2016 bedtime as needed for insomnia Buspirone HCL 02/05/ Hx Tablets 5mg 60tab one tablet F41.9 Sen 2016 - s twice HOLLY Herbert 03/07/ daily 2016 Lexapro 11/13/ Hx Tablets 10mg 30tab 1 by mouth F41.3 Sen 2017 - s every day HOLLY Herbret 2016 Xanax 11/13/ Hx Tablets 0.5mg 45tab 1-2 F41.3 Polebridge 2016 - s tablets HOLLY Herbert 11/13/ twice 2018 daily as needed anxiety Oseltamivir 10/22/ Hx Capsules 75mg 10cap 1 po twice J20.9 Carlos Ynes. Phosphate 2016 - a day for Marina, 12/11/ 5 days M.D. 2017 Klonopin 10/11/ Hx Tablets 0.5mg 30tab /2-1 F41.3 Sen 2016 - s tablet by [...] Hx Tablets 4mg 30tab dissolve R11.2 Sen 2016 - Dispers s one tablet HOLLY Herbert [...] by K20.9 Sen 2014 - s mouth HOLLY Herbert 08/11/ three 2017 times a day befor meals PT Seen Today 07/10/ Hx light 724.2 Carlos Olson [employer] [facility] 2010 - duty: brandee Gray, Exam 08/01/ bending, M.Lamin 2014 lifting, prolonged standing for 1 month unless cleared Levothyroxine 07/02/ Hx Tablets 25mcg 90tab 1 po qd Carlos Olson Sodium 2010 - s Marina, 09/06/ M.D. 2012 06/28/ Hx Tablets 14-0.4mg Carlos Olson Complete 2010 - Marina, M.D. 2011 Tylenol 06/28/ Hx Liquid 500mg/15M Carlos Olson 2010 - L Marina, 09/06/ M.D. 2012 Day Time 08/15/ Hx Capsules 10-5-325m prn Carlos Olson Cold/Flu Relief 2008 - shakila Gray, M.D. 2010 Ibuprofen 08/15/ Hx Tablets 200mg [...] 6 hours 2013 prn pain Asacol HD 00/ Hx Tablets DR 800mg 3 tabs Unknown 0000 - three 08/01/ times a 2014 day Azathioprine 00/ Hx Tablets 50mg 90tab 1/2 tab by Unknown 0000 - s mouth 08/01/ every day 2014 Ciprofloxacin /00/ Hx Tablets 500mg Unknown HCL 0000 - 2015 Azathioprine /00/ Hx Tablets 50mg 1 tab Bonilla, 0000 - daily Olivia 06/17/ Petra 2015 PA-C Ciprofloxacin / Hx Tablets 250mg one by Unknown HCL 0000 - mouth 10/11/ twice a 2016 day for 5 days Oxycodone HCL / Hx Tablets 5mg 1-2 by Unknown 0000 - mouth four 10/11/ times a 2016 day as needed Mesalamine / Hx Tablets DR 800mg Take One Unknown 0000 - Tablet By 2016 Three Times A Day Lunesta 00/ Hx Tablets 1mg unknown Unknown 0000 - dose 2016 Bupropion HCL / Hx Tablets ER 150mg 60tab 2 by mouth Unknown ER (XL) 0000 - 24HR s every day 2017 Benadryl 00/ Hx Tablets 25mg 1-2 tabs Unknown Allergy 0000 - twice a day for 2018 itching Medications Administered in Office Medication Date Status Form Strength Qnty SIG Indications Ordering Provider Influenza Administered Injection Unknown Virus Vaccine 014 Immunizations CPT Code Status Date Vaccine Lot # [id number] Given 10/29/2011 Tdap - Tetanus/Diptheria/Acellular Pertussis [id number] Given 06/28/2011 Influenza Virus 3Yrs & Over [id number] Vital Signs Date Vital Result Comment 04/27/2018 Height 59.25 inches 4'11.25" Weight 172.75 lb Heart Rate 89 /min BP Systolic 120 mmHg BP Diastolic 78 mmHg Body Temperature 98.1 F O2 % BldC Oximetry 97 % BMI (Body Mass Index) 34.6 kg/m2 03/30/2018 Weight 171.50 lb Heart Rate 68 /min BP Systolic 130 mmHg BP Diastolic 76 mmHg Body Temperature 98.8 F O2 % BldC Oximetry 95 % 02/26/2018 Weight 172.00 lb Heart Rate 63 [...] Test Date Test Result H/L Range Note Laboratory test 03/01/2018 Rapid Strep Negative Negative 1 finding Molecular CBC Auto Diff 06/12/2016 White Blood Count [...] test finding 06/12/2016 HCG < 0.60 mIU/mL 2 Comp Metabolic Panel 06/12/2016 Sodium 135 mmol/L [...] Egfr Non- 83.7 >60 Egfr 107.6 >60 3 Laboratory test finding 06/12/2016 Lipase 23 U/L 11.0-82.0 C Reactive Protein 66.07 mg/L High < 5.00 4 Lactic Acid 0.6 mmol/L 0.5-2.0 5 Blood Culture SEE RESULT BELOW 6 Laboratory test finding 05/16/2016 TSH (Thyroid Stim [...] Egfr Non- 83.7 >60 Egfr 107.6 >60 7 Laboratory test finding 05/16/2016 Vitamin B12 182 pg/mL 180-914 8 Vitamin D Total 25(Oh) 21.8 ng/mL Low 30-50 Laboratory test 11/13/2015 Urine Culture And SEE RESULT BELOW 9 finding Sensitivities Laboratory test 10/09/2015 Rapid Strep Molecular Negative Negative 10 finding Laboratory test 10/09/2015 Throat-Beta Strept SEE RESULT BELOW 11 finding Laboratory test 02/15/2015 Urine Culture SEE RESULT BELOW 12 finding Urine Culture And 12/30/2014 Urine Culture (SEE NOTE) 13 Sensitivities Urine Culture And 02/27/2014 Urine Culture (SEE NOTE) 14 Sensitivities Urine Culture And 11/23/2013 Urine Culture (SEE NOTE) 15 Sensitivities Laboratory test 08/16/2013 O P: (SEE NOTE) 16 finding Giardia/Cryptospor Screen GC/Chlamydia Amplified 08/16/2013 GC/Chlamydia Rna (SEE NOTE) 17 Rna Urine Culture And 08/16/2013 Urine Culture (SEE NOTE) 18 Sensitivities Stool Culture 08/16/2013 Stool Culture (SEE NOTE) 19 Laboratory test 08/10/2012 Magnesium 2.4 mg/dL 1.7-2.6 [...] Egfr Non- 100.4 >60 Egfr 129.1 >60 20 Laboratory test finding 12/06/2011 Thyroxine Free 0.64 ng/dL 0.61-1.24 TSH 2.08 MIU/ML 0.34-5.60 Basic Metabolic Panel 12/06/2011 Sodium 137 mmol/L 135-145 Potassium 4.6 mmol/L 3.5-5.0 Chloride 105 mmol/L 101-111 Co2 (Carbon Dioxide) 25.0 mmol/L 22-32 Anion Gap 7.0 mmol/L 2-11 21 Glucose 86 mg/dL 70-100 BUN 9 mg/dL 6-24 Creatinine 0.7 mg/dL 0.50-1.40 One Over Creatinine 1.42 BUN/Creatinine Ratio 12.9 8-20 Calcium 9.5 mg/dL 8.1-9.9 eGFR Non- 101.1 > 60 eGFR 130.1 > 60 22 CBC Auto Diff 12/06/2011 White Blood Count 8.2 CUMM 4.8-10.8 Red Cell Count 4.26 CUMM 4.2-5.4 Hemoglobin 13.1 g/dL 12.0-16.0 Hematocrit 38 % 35-47 Mean Corpuscular Volume 90 um3 79-97 Mean Corpuscular Hemoglob 31 pg 27-31 Mean Corpuscular HGB Cone 34 g/dL 32-36 Redcell Distribution WDTH 14 % 10.5-15 Platelet Count 307 CUMM 150-450 Mean Platelet Volume 8.9 um3 7.4-10.4 23 Laboratory test finding 12/06/2011 Magnesium 2.2 mg/dL 1.7-2.6 Manual Differential 12/06/2011 Polysegmented Neutrophil 69 % 38-83 Lymphocyte 27 % 25-47 Monocyte 4 % 0-13 Absolute Neutrophil Count 5.6 RBC Morphology NORMAL Laboratory test finding 10/07/2011 Magnesium 1.6 mg/dL Low 1.7-2.6 Troponin-I 0.01 NG/ML 0-0.06 24 TSH 4.73 MIU/ML 0.34-5.60 Manual Differential 10/07/2011 [...] 150-450 Mean Platelet Volume 8.2 um3 7.4-10.4 25 Comp Metabolic Panel 10/07/2011 Sodium 139 mmol/L 135-145 Potassium 2.9 mmol/L Low 3.5-5.0 Chloride 105 mmol/L 101-111 Co2 (Carbon Dioxide) 26.0 mmol/L 22-32 Anion Gap 8.0 mmol/L 2-11 26 Glucose 127 mg/dL High 70-100 BUN 11 mg/dL 6-24 Creatinine 0.6 mg/dL 0.50-1.40 One Over Creatinine 1.66 BUN/Creatinine Ratio 18.3 8-20 Calcium 10.0 mg/dL High 8.1-9.9 Total Protein 5.7 GM/DL Low 6.2-8.1 Albumin 2.8 GM/DL Low 3.6-5.4 Globulin 2.9 GM/DL 2-4 Albumin/Globulin Ratio 1.0 1-3 Bilirubin Total 0.5 mg/dL 0.4-1.5 27 Alkaline Phosphatase 81 U/L 30-110 Alt (SGPT) 15 U/L 14-54 Ast (Sgot) 20 U/L 12-42 eGFR Non- 120.8 > 60 eGFR 155.4 > 60 28 Throat-Beta Strept 08/08/2011 Throat-Beta Strep NF 29 Culture Urine Culture & 08/08/2011 Urine Culture NG 30 Sensitivi Sensitivi Laboratory test finding 07/10/2011 Thyroxine Free 0.64 ng/dL 0.61-1.24 TSH 0.82 MIU/ML 0.34-5.60 Basic Metabolic Panel 07/10/2011 Sodium 140 mmol/L 135-145 Potassium 3.6 mmol/L 3.5-5.0 Chloride 107 mmol/L 101-111 Co2 (Carbon Dioxide) 24.0 mmol/L 22-32 Anion Gap 9.0 mmol/L 2-11 31 Glucose 75 mg/dL 70-100 BUN 3 mg/dL Low 6-24 Creatinine 0.5 mg/dL Low 0.50-1.40 One Over Creatinine 2.00 BUN/Creatinine Ratio 6.0 Low 8-20 Calcium 9.7 mg/dL 8.1-9.9 eGFR Non- 149.1 > 60 eGFR 191.8 > 60 32 CBC Auto Diff 03/16/2011 White Blood Count 14.2 CUMM High 4.8-10.8 Red Cell Count 4.26 CUMM 4.2-5.4 Hemoglobin 13.0 g/dL 12.0-16.0 Hematocrit 38 % 35-47 Mean Corpuscular Volume 89 um3 79-97 Mean Corpuscular Hemoglob 31 pg 27-31 Mean Corpuscular HGB Cone 34 g/dL 32-36 Redcell Distribution WDTH 13 % 10.5-15 Platelet Count 292 CUMM 150-450 Mean Platelet Volume 8.2 um3 7.4-10.4 33 Manual Differential 03/16/2011 Polysegmented Neutrophil 76 % 38-83 Lymphocyte 21 % Low 25-47 Monocyte 3 % 0-13 Absolute Neutrophil Count 10.7 RBC Morphology NORMAL Comp Metabolic Panel 03/16/2011 Sodium 136 mmol/L 135-145 Potassium 3.8 mmol/L 3.5-5.0 Chloride 107 mmol/L 101-111 Co2 (Carbon Dioxide) 23.0 mmol/L 22-32 Anion Gap 6.0 mmol/L 2-11 34 Glucose 99 mg/dL 70-100 BUN 3 mg/dL Low 6-24 Creatinine 0.40 mg/dL Low 0.50-1.40 One Over Creatinine 2.50 BUN/Creatinine Ratio 7.5 Low 8-20 Calcium 9.4 mg/dL 8.1-9.9 Total Protein 6.3 GM/DL 6.2-8.1 Albumin 3.8 GM/DL 3.6-5.4 Globulin 2.5 GM/DL 2-4 Albumin/Globulin Ratio 1.5 1-3 Bilirubin Total 0.6 mg/dL 0.4-1.5 35 Alkaline Phosphatase 47 U/L 30-110 Alt (SGPT) 57 U/L High 14-54 Ast (Sgot) 49 U/L High 12-42 eGFR Non- 192.9 > 60 eGFR 248.1 > 60 36 Laboratory test finding 03/16/2011 Lipase 37 U/L 22-51 BHCG Quantitative 17698.0 MIU/ML High 0-5 37 C Reactive Protein 1.9 mg/dL High Less Than 0.5 Urinalysis 03/16/2011 Ua Color YELLOW Yellow Appearance-Urine CLEAR Clear Specific [place]-Ur 1.012 1.010-1.030 Esterase-Urine NEGATIVE Negative Nitrite NEGATIVE Negative Goeeuusqlybg-Ut-CYJ NEGATIVE Negative Protein-Urine NEGATIVE Negative PH-Urine 6.5 5-9 Blood-Urine NEGATIVE Negative Ketones-Urine 2+ Negative Bilirubin-Ur NEGATIVE Negative Glucose-Urine NEGATIVE Negative Laboratory test 03/16/2011 Stool For Blood POSITIVE Negative finding Surgical Pathology 03/14/2011 Surgical Pathology 38 <SEE NOTE> Wet Prep 03/14/2011 Wet Prep MODERATE (1 TO 4 39 <SEE NOTE> CBC Auto Diff 03/13/2011 White [...] 0 0-0.2 Protime 03/13/2011 Inr 0.95 0.82-1.17 40 Protime 11.2 SEC 10.2-14.8 41 Urinalysis W/Microscopic 03/13/2011 Ua Color YELLOW Yellow Appearance-Urine CLEAR Clear Specific [place]-Ur 1.004 Low 1.010-1.030 Esterase-Urine TRACE Negative Nitrite NEGATIVE Negative Svmwreeiotkl-Da-PJC NEGATIVE Negative Protein-Urine NEGATIVE Negative PH-Urine 6.0 5-9 Blood-Urine NEGATIVE Negative Ketones-Urine TRACE Negative Bilirubin-Ur NEGATIVE Negative Glucose-Urine NEGATIVE Negative WBC-Urine 3-5 0-5 RBC-Urine 1-3 0-2 Epith Cells-Ur FEW None Bacteria-Urine TRACE None Amorphous Sed-U TRACE None Crystals-Urine (SEE NOTE) None 42 Laboratory test finding 03/13/2011 BHCG Quantitative 45155.0 MIU/ML High 0 -5 43 Comp Metabolic Panel 03/13/2011 Sodium 137 mmol/L 135-145 Potassium 3.1 mmol/L Low 3.5-5.0 Chloride 106 mmol/L 101-111 Co2 (Carbon Dioxide) 23.0 mmol/L 22-32 Anion Gap 8.0 mmol/L 2-11 44 Glucose 100 mg/dL 70-100 BUN 10 mg/dL 6-24 Creatinine 0.50 mg/dL 0.50-1.40 One Over Creatinine 2.00 BUN/Creatinine Ratio 20.0 8-20 Calcium 9.5 mg/dL 8.1-9.9 Total Protein 6.1 GM/DL Low 6.2-8.1 Albumin 3.9 GM/DL 3.6-5.4 Globulin 2.2 GM/DL 2-4 Albumin/Globulin Ratio 1.8 1-3 Bilirubin Total 0.5 mg/dL 0.4-1.5 45 Alkaline Phosphatase 43 U/L 30-110 Alt (SGPT) 35 U/L 14-54 Ast (Sgot) 30 U/L 12-42 eGFR Non- 149.1 > 60 eGFR 191.8 > 60 46 Type & Screen 03/13/2011 Patient Blood Type AB POSITIVE Antibody Screen NEGATIVE Laboratory test 03/13/2011 PTT (Aptt) 28.1 25.15-38.53 finding Laboratory test 02/25/2011 BHCG Quantitative 73278.0 MIU/ML High 0-5 47 finding CBC No Diff 02/25/2011 White Blood Count 9.8 CUMM 4.8-10.8 Red Cell Count 4.27 CUMM 4.2-5.4 Hemoglobin 12.9 g/dL 12.0-16.0 Hematocrit 38 % 35-47 Mean Corpuscular Volume 89 um3 79-97 Mean Corpuscular Hemoglob 30 pg 27-31 Mean Corpuscular HGB Cone 34 g/dL 32-36 Redcell Distribution WDTH 13 % 10.5-15 Platelet Count 300 CUMM 150-450 Mean Platelet Volume 8.8 um3 7.4-10.4 Burno Silva Comprehensive 11/26/2010 Ebv Vca Igg Positive Negative Ebv Vca Igm Negative Negative Ebna Positive Negative Ebv Interpretation SEE BELOW () 48 Laboratory test finding 11/26/2010 Monospot NEGATIVE Negative Ursc-1 07/09/2010 Ampicillin <=2 Amikacin <=2 Ciprofloxacin <=0.25 Ceftriaxone <=1 Cefazolin <=4 Nitrofurantoin <=16 Gentamicin <=1 Imipenem <=1 Levofloxacin <=0.12 Trimeth-Sulfa <=20 Ceftazidime <=1 Tigecycline <=0.5 Piperacillin/Tazobactam <=4 Urine Culture 07/09/2010 Urine Culture ESCHERICHIA COLI 49 Sensitivi Sensitivi Urine Culture & 02/01/2010 Urine Culture NF1 50 Sensitivi Sensitivi Urinalysis 02/01/2010 Ua Color YELLOW Yellow W/Microscopic Appearance-Urine CLEAR Clear Specific [place]-Ur 1.011 1.010-1.030 Esterase-Urine 1+ Negative Nitrite NEGATIVE Negative Hcagvbjhswwa-Xe-LIS NEGATIVE Negative Protein-Urine NEGATIVE Negative PH-Urine 6.0 5-9 Blood-Urine 3+ Negative Ketones-Urine NEGATIVE Negative Bilirubin-Ur NEGATIVE Negative Glucose-Urine NEGATIVE Negative WBC-Urine 1-3 0-5 RBC-Urine 10-15 0-2 Epith Cells-Ur MODERATE None Bacteria-Urine 2+ None Amorphous Sed-U TRACE None HCG () Urine Stat 02/01/2010 Specific [place] 1.011 1.010-1.030 Urine NEGATIVE Negative 51 CBC With Manual Diff Stat 02/01/2010 White [...] mmol/L 22-32 Anion Gap 8.0 mmol/L 2-11 52 Glucose 102 mg/dL High 70-100 53 BUN 10 mg/dL 6-24 Creatinine 0.60 mg/dL 0.50-1.40 One Over Creatinine 1.60 BUN/Creatinine Ratio 16.7 8-20 Calcium 9.2 mg/dL 8.1-9.9 54 Total Protein 7.0 GM/DL 6.2-8.1 Albumin 4.3 GM/DL 3.6-5.4 Globulin 2.7 GM/DL 2-4 Albumin/Globulin Ratio 1.6 1-3 Bilirubin Total 0.4 mg/dL 0.4-1.5 55 Alkaline Phosphatase 57 U/L 30-110 Alt (SGPT) 18 U/L 14-54 Ast (Sgot) 20 U/L 12-42 eGFR Non- 129.5 > 60 eGFR 156.6 > 60 56 Urinalysis W/Microscopic 01/11/2010 Ua Color YELLOW Yellow Appearance-Urine CLEAR Clear Specific [place]-Ur 1.011 1.010-1.030 Esterase-Urine TRACE Negative Nitrite NEGATIVE Negative Ahkuslbordnp-Oo-PIR NEGATIVE Negative Protein-Urine NEGATIVE Negative PH-Urine 6.5 5-9 Blood-Urine 3+ Negative Ketones-Urine NEGATIVE Negative Bilirubin-Ur NEGATIVE Negative Glucose-Urine NEGATIVE Negative WBC-Urine 0-2 0-5 RBC-Urine TNTC 0-2 Mucus Urine SMALL None Epith Cells-Ur FEW None HCG () Urine Stat 01/11/2010 Specific [place] 1.006 Low 1.010- 1.030 Urine NEGATIVE Negative 57 Throat-Beta Strept 2009 Throat-Beta Strep Culture POSAD 58 1 Pipe Processor: [id number] 2 <5.0 Negative 5.0 - 25.0 Indeterminate (Repeat testing recommended after 72 hours) >25.0 Positive Perimenopausal women can display HCG levels of up to 20 mIU/mL 3 Because ethnic data is not always readily [...] 15-29 5 Kidney failure <15 (or dialysis) 4 Acute inflammation: >10.00 5 [place] Severe Sepsis and Septic Shock Management Bundle Measure requires all lactic acids initially measuring >2.0 mmol/L be repeated. 6 SEE RESULT BELOW Name: SANDRA FELIZ : [address]: Lawanda Honeycutt MD Acct: [id number] Unit: [id number] AGE: 30 Location: [place] [address] Re06/12/16 Dis: 06/15/16 SEX: F Status: DIS Rox SPEC: [id number] JB: 06/12/16-12[address] [facility] [address]: Curtis Almazan MD REQ: [id number] RECD: 06/12/16-1311 STATUS: CRUZITO MERCEDES DR: Carlos Gray III, MD _ SOURCE: BLOOD,VENO SPDES: ORDERED: Blood Cult Procedure Result Reported Site Aerobic Culture Bottle Final 06/17/16- 1312 ML No Growth Day 5 Anaerobic Culture Bottle Final 06/17/16- 1312 ML No Growth Day 5 * ML - MAIN LAB ([facility]) . END OF REPORT * ML=Testing performed at Main Lab DEPARTMENT OF PATHOLOGY, [address] [place] [address] Cesario Vera M.D. Director [facility] # [id number] 7 Because ethnic data is not always readily [...] 15-29 5 Kidney failure <15 (or dialysis) 8 Normal Range 180 to 914 Indeterminate Range 145 to 180 Deficient Range <145 9 SEE RESULT BELOW Name: SANDRA FELIZ : [address]: Randolph Ortiz MD Acct: [id number] Unit: [id number] AGE: 29 Location: [facility] Re11/13/15 SEX: F Status: DEP ER SPEC: [id number] JB: 11/13/15 [facility] [address]: Randolph Ortiz MD REQ: [id number] RECD: 11/14/15-1100 STATUS: CRUZITO MERCEDES DR: Carlos Gray III, MD _ SOURCE: URINE SPDESC: ORDERED: Urine Culture Procedure Result Reported Site Urine Culture Final 11/15/15- 0849 ML No growth of clinically significant organisms * ML - MAIN LAB ([facility]) . END OF REPORT * ML=Testing performed at Main Lab DEPARTMENT OF PATHOLOGY, [address] [place] [address] Cesario Vera M.D. Director [facility] # [id number] 10 Pipe Processor: [id number] [place] The independent living instructor and regulatory agencies both recommend that a throat culture for beta strep be performed if a Rapid Group A Strep assay yields a negative result. Therefore a culture will be automatically performed on all negative samples. 11 SEE RESULT BELOW Name: SANDRA FELIZ : [address]: Randolph Ortiz MD Acct: [id number] Unit: [id number] AGE: 29 Location: [facility] Re10/09/15 SEX: F Status: DEP ER SPEC: [id number] JB: 10/09/15-2790 [facility] [address]: Randolph Ortiz MD REQ: [id number] RECD: 10/10/151782 STATUS: CRUZITO MERCEDES DR: Carlos Gray III, MD _ SOURCE: THROAT SPDESC: ORDERED: Throat Beta Str Procedure Result Reported Site Throat Beta Strep Culture Final 10/12/15- 1150 ML Negative For Group A Beta Streptococcus * ML - MAIN LAB ([facility]) . END OF REPORT * ML=Testing performed at Main Lab DEPARTMENT OF PATHOLOGY, [address] [place] [address] Cesario Vera M.D. Director [facility] # [id number] 12 SEE RESULT BELOW Name: SANDRA FELIZ : [address]: Yudelka Hoang Acct: [id number] Unit: [id number] AGE: 29 Location: [facility] Re02/15/15 SEX: F Status: DEP ER SPEC: [id number] JB: 02/15/[address] [facility] [address]: Yudelka Briceno DO REQ: [id number] RECD: 02/16/15-1102 STATUS: CRUZITO MERCEDES DR: Aubrey [facility]icians Carols Gray III, MD _ SOURCE: URINE SPDESC: ORDERED: Urine Culture Procedure Result Verified Site Urine Culture Final 02/18/15- 823 ML No Growth Day 2 (<1,000 CFU/mL) * ML - MAIN LAB ([facility]) . END OF REPORT * ML=Testing performed at Main Lab DEPARTMENT OF PATHOLOGY, [facility] [address] [place], [place] [address] Cesario Vera M.D. Director [facility] # [id number] 13 RUN DATE: 01/01/15 [facility] LAB LIVE PAGE 1 RUN TIME: 1139 [facility] [place], [place] [address] Specimen Inquiry Name: SANDRA FELIZ : [address]: Uriel Cordero MD Acct: [id number] Unit: [id number] AGE: 29 Location: [facility] Re12/30/14 SEX: F Status: DEP ER SPEC: [id number] JB: 12/30/14-[address] [facility] [address]: Giselle Bey NP REQ: [id number] RECD: 12/30/14-1322 STATUS: CRUZITO MERCEDES DR: Uriel Gray III, MD _ SOURCE: URINE SPDESC: ORDERED: Urine Culture Procedure Result Verified Site Urine Culture Final 01/01/15- 1139 ML No Growth Day 2 (<1,000 CFU/mL) * ML - MAIN LAB ([facility]) . END OF REPORT * ML=Testing performed at Main Lab DEPARTMENT OF PATHOLOGY, [facility] [place], [place] [address] Cesario Vera M.D. Director [facility] # [id number] 14 RUN DATE: 03/02/14 [facility] LAB LIVE PAGE 1 RUN TIME: 927 [facility] [place], [place] [address] Specimen Inquiry Name: SANDRA FELIZ : [address]: Robert Stewart MD Acct: [id number] Unit: [id number] AGE: 28 Location: [facility] Re02/27/14 SEX: F Status: DEP ER SPEC: [id number] JB: 02/27/14-[address]: Robert Stewart MD REQ: [id number] RECD: 02/28/14-1246 STATUS: CRUZITO MERCEDES DR: Carlos Gray III, MD _ SOURCE: URINE SPDESC: ORDERED: Urine Culture Procedure Result Verified Site Urine Culture Final 03/02/14- 927 ML Organism 1 KLEBSIELLA PNEUMONIAE [place] Count 10-25,000 (Moderate) CFU/ML Organism 2 NORMAL MARANDA [place] Count 1-10,000 (Few) CFU/ML 1. KLEBSIELLA PNEUMONIAE [...] performed at Main Lab DEPARTMENT OF PATHOLOGY, [facility] [place] [address] Cesario Vera M.D. Director [facility] # [id number] RUN DATE: 11/26/13 [facility] LAB LIVE PAGE 1 RUN TIME: 902 [facility] [place], [place] [address] Specimen Inquiry Name: SANDRA FELIZ : [address]: Lilia Jolly MD Acct: [id number] Unit: [id number] AGE: 27 Location: [facility] Re11/23/13 SEX: F Status: DEP ER SPEC: [id number] JB: 11/23/13 [facility] [address]: Lilia Jolly MD REQ: [id number] RECD: 11/24/13 STATUS: CRUZITO MERCEDES DR: Carlos Gray III, MD _ SOURCE: URINE SPDESC: ORDERED: Urine Culture Procedure Result Verified Site Urine Culture Final 11/26/13- 901 ML Organism 1 NORMAL MARANDA [place] Count 10-25,000 (Moderate) CFU/ML END OF REPORT * ML=Testing performed at Main Lab DEPARTMENT OF PATHOLOGY, [address] [address] Cesario Vera M.D. Director [facility] Permit #[id number] 16 RUN DATE: 08/18/13 [facility] LAB LIVE PAGE 1 RUN TIME: [address] [place] [address] Specimen Inquiry Name: SANDRA FELIZ : [address]: Robert Stewart MD Acct: [id number] Unit: [id number] AGE: 27 Location: [facility] Re08/16/13 SEX: F Status: REG ER SPEC: [id number] JB: 08/16/13-2099 [facility] [address]: Giselle Bey NP REQ: [id number] RECD: 08/17/13 STATUS: RES OTHR DR: Robert [...] is requested. Contact the Microbiology Department at [phone]. TEST LIMITATIONS: As with all diagnostic procedures, the results obtained should be used in conjunction with other clinical CONTINUED ON NEXT PAGE * ML=Testing performed at Main Lab DEPARTMENT OF PATHOLOGY, [facility] [place] [address] Cesario Vera M.D. Director [facility] Permit #[id number] RUN DATE: 08/18/13 [facility] LAB LIVE PAGE 2 RUN TIME: 1414 [facility] [place], [place] [address] Specimen Inquiry Patient: SANDRA FELIZ [id number] (Continued) Specimen: [id number] Collected: 08/16/13 Received: 08/17/13 (Continued) Procedure Result Verified Site O P: Giardia/Cryptospor Screen Final (continued) 08/18/13 141 information available the physician. Negative results [...] performed at Main Lab DEPARTMENT OF PATHOLOGY, [address] [place] [address] Cesario Vera M.D. Director [facility] Permit #[id number] 17 RUN DATE: 08/20/13 [facility] LAB LIVE PAGE 1 RUN TIME: [address] [place], [place] [address] Specimen Inquiry Name: SANDRA FELIZ : [address]: Robert Stewart MD Acct: [id number] Unit: [id number] AGE: 27 Location: [facility] Re08/16/13 SEX: F Status: REG ER SPEC: [id number] JB: 08/16/13-[address] [facility] [address]: Giselle Bey NP REQ: [id number] RECD: 08/17/13774 STATUS: CRUZITO [facility] DR: Robert Gray III, [...] performed at Main Lab DEPARTMENT OF PATHOLOGY, [facility] [place], [place] [address] Cesario Vera M.D. Director [facility] [place] Permit #[id number] RUN DATE: 08/20/13 [facility] LAB LIVE PAGE 2 RUN TIME: 3402 [facility] [place], [place] [address] Specimen Inquiry Patient: SANDRA FELIZ [id number] (Continued) Specimen: [id number] Collected: 08/16/13 Received: 08/17/13 (Continued) Procedure Result Verified Site GC (N. gonorrhoeae) RNA Final (continued) 08/20/13 1934 Performance characteristics for detecting C. trachomatis and N. gonorrhoeae are derived from high prevalence populations. Positive results in low prevalence populations should be interpreted carefully with the understanding that the likelihood of a false positive may be higher than a true positive. END OF REPORT * ML=Testing performed at Main Lab DEPARTMENT OF PATHOLOGY, [facility] [place], [place] [address] Cesario Vera M.D. Director [facility] [place] Permit #[id number] RUN DATE: 08/19/13 [facility] LAB LIVE PAGE 1 RUN TIME: 101 [facility] [place], [place] [address] Specimen Inquiry Name: SANDRA FELIZ : [address]: Robert Stewart MD Acct: [id number] Unit: [id number] AGE: 27 Location: [facility] Re08/16/13 SEX: F Status: REG ER SPEC: [id number] JB: 08/16/13-[address] [facility] [address]: Giselle Bey NP REQ: [id number] RECD: 08/17/13 STATUS: CRUZITO MERCEDES DR: Robert Gray III, MD _ SOURCE: URINE SPDESC: ORDERED: Urine Culture Procedure Result Verified Site Urine Culture Final 08/19/13- 1015 ML Organism 1 NORMAL MARANDA [place] Count >100,000 (Many) CFU/ML END OF REPORT * ML=Testing performed at Main Lab DEPARTMENT OF PATHOLOGY, [facility] [place], [place] [address] Cesario Vera M.D. Director [facility] Permit #[id number] RUN DATE: 08/20/13 [facility] LAB LIVE PAGE 1 RUN TIME: 817 [facility] [place], [place] [address] Specimen Inquiry Name: SANDRA FELIZ : [address]: Robert Stewart MD Acct: [id number] Unit: [id number] AGE: 27 Location: [facility] Re08/16/13 SEX: F Status: REG ER SPEC: [id number] JB: 08/16/13-[address] [facility] [address]: Giselle Bey NP REQ: [id number] RECD: 08/17/13 STATUS: CRUZITO MERCEDES DR: Robert [...] performed at Main Lab DEPARTMENT OF PATHOLOGY, [facility] [place] [address] Cesario Vera M.D. Director [facility] [place] Permit #[id number] RUN DATE: 08/20/13 [facility] LAB LIVE PAGE 2 RUN TIME: 817 [facility] [place], [place] [address] Specimen Inquiry Patient: SANDRA FELIZ [id number] (Continued) Specimen: [id number] Collected: 08/16/13-2099 Received: 08/17/13 (Continued) Procedure Result Verified Site [...] is requested. Contact the Microbiology Department at [phone]. TEST LIMITATIONS: As with all diagnostic procedures, [...] performed at Main Lab DEPARTMENT OF PATHOLOGY, [address] [place] [address] Cesario Vera M.D. Director [facility] [place] Permit #[id number] 20 Because ethnic data is not always readily [...] 15-29 5 Kidney failure <15 (or dialysis) 21 Anion gap measurement may be of limited value in the presence of any alkalosis, especially in a combined acid base disorder. . 22 Because ethnic data is not always readily [...] 15-29 5 Kidney failure <15 (or dialysis) 23 Imm. NE 1 24 New Reference Range and Interpretation effective 07/09/2002 TnI (ng/ml) INTERPRETATION Less Than 0.06 ng/mL NOT SUPPORTIVE OF DIAGNOSIS OF [place] 0.06 - 0.50 ng/ml INDETERMINATE: SUGGEST SERIAL STUDIES IF CLINICALLY INDICATED. Greater than 0.5 ng/mL CONSISTENT WITH DIAGNOSIS OF [place] . 25 Imm. NE 1 26 Anion gap measurement may be of limited value in the presence of any alkalosis, especially in a combined acid base disorder. . 27 A metabolite of Naproxen, O-desmethylnaproxen, has been shown to interfere with the Jendrassik-Awilda method for measuring total bilirubin. Samples from patients who have taken Naproxen have shown spurious elevation in total bilirubin levels. 28 Because ethnic data is not always readily [...] 15-29 5 Kidney failure <15 (or dialysis) 29 NEGATIVE FOR GROUP A BETA STREPTOCOCCUS 30 FINAL: NO GROWTH DAY 2 (<1,000 CFU/mL) 31 Anion gap measurement may be of limited value in the presence of any alkalosis, especially in a combined acid base disorder. . 32 Because ethnic data is not always readily [...] 15-29 5 Kidney failure <15 (or dialysis) 33 Neutrophilia % Lymphopenia % 34 Anion gap measurement may be of limited value in the presence of any alkalosis, especially in a combined acid base disorder. . 35 A metabolite of Naproxen, O-desmethylnaproxen, has been shown to interfere with the Jendrassik-[place] method for measuring total bilirubin. Samples from patients who have taken Naproxen have shown spurious elevation in total bilirubin levels. 36 Because ethnic data is not always readily [...] 15-29 5 Kidney failure <15 (or dialysis) 37 * MALES: < 5.0 MIU/ML NON FEMALES [...] confirmed by an alternate HCG method. . 38 ---- RUN DATE: 03/15/11 [facility] NMI LIVE PAGE 1 RUN TIME: 1303 Specimen Inquiry RUN USER: INTERFACE -- Name: SANDRA FELIZ Status: DIS Rox Re03/14/11 Age/Sex: 25/F Unit#: [id number] Location: [facility] : [birth year] -- Specimen: [id number] [id number] Spec Date: 03/14/[address]: Robert morgan MD Spec Type: SURGICAL P Received: 03/14/11-5941 Copies to: CYTOLOGY Carlos Cherry MD SPECIMEN [...] congested serosal surface and with stapled margin. Ammonia Refrigeration Technician section, one cassette labelled 2. DIAGNOSIS 1) Right paratubal cyst, cystectomy: Paratubal cyst. 2) Appendix, appendectomy: A. Appendix with fecalith. B. No evidence of acute appendicitis. Signed Electronically by: MEHNAZ BHAGAT 03/15/11 1302 -- -- DEPARTMENT OF PATHOLOGY, [address] [place] [address] [facility] Permit #[id number] Cesario Vera M.D. Director Mehnaz Bhagat M.D. Order Manager tico -- 39 MODERATE (1 TO 4/HPF) ABSENT FEW (LESS THAN 1/HPF) ABSENT 40 Recommended INR for Patients on Oral Anticoagulants Prophylaxis 2.0 - 3.0 Treatment of thrombosis 2.0 - 3.0 Prevention of embolism 2.0 - 3.0 Prevention of embolism from prosthetic heart valves 2.5 - 3.5 41 DIAGNOSIS,TREATMENT,AND THERAPY MUST BE BASED ON THE INR VALUE ALONE. 42 FEW URIC ACID CRYSTALS OBSERVED 43 * MALES: < 5.0 MIU/ML NON FEMALES [...] confirmed by an alternate HCG method. . 44 Anion gap measurement may be of limited value in the presence of any alkalosis, especially in a combined acid base disorder. . 45 A metabolite of Naproxen, O-desmethylnaproxen, has been shown to interfere with the Jendrassik-[place] method for measuring total bilirubin. Samples from patients who have taken Naproxen have shown spurious elevation in total bilirubin levels. 46 Because ethnic data is not always readily [...] 15-29 5 Kidney failure <15 (or dialysis) 47 * MALES: < 5.0 MIU/ML NON FEMALES [...] confirmed by an alternate HCG method. . 48 RESULT: Results suggest past infection In most populations, at least 90% of the adult population will have been infected with EBV sometime in the past and therefore, will be positive for anti-VCA/IgG and anti-EBNA. Antibodies to EBNA develop 6-8 weeks after primary infection and remain present for life. Presence of VCA/IgM antibodies indicates recent primary infection with EBV. Test Performed by: [facility] Path[facility] [address] [place] [id number] Wrapper Sheeter: Waylon Floyd III, M.D. 49 >100^>100,000 ORGANISMS/ML (MANY)^CCU 50 SPECIMEN CONTAINS NORMAL URETHRAL OR PERINEAL MARANDA AND DOES NOT SUGGEST URINARY TRACT INFECTION 51 If is still suspected, please repeat test after 48 to 72 hours. . 52 Anion gap measurement may be of limited value in the presence of any alkalosis, especially in a combined acid base disorder. . 53 Note change in reference range as of 05/26/08. The change was based on recommendations from the [place] [employer]. 54 Please note change in reference range effective 08 . 55 A metabolite of Naproxen, O-desmethylnaproxen, has been shown to interfere with the Jendrassik-[place] method for measuring total bilirubin. Samples from patients who have taken Naproxen have shown spurious elevation in total bilirubin levels. 56 Because ethnic data is not always readily [...] 15-29 5 Kidney failure <15 (or dialysis) 57 If is still suspected, please repeat test after 48 to 72 hours. . 58 POSITIVE FOR PRESUMPTIVE GROUP A BETA HEMOLYTIC STREP BY BACITRACIN DISC Procedures Date CPT Code Description Status 12/29/2013 Colonoscopy Completed Encounters Type Date Location Provider CPT E/M Dx Office Visit 03/30/2018 10:20a [facility] [place] [address] F41.9 [place] F33.9 Office Visit 02/26/2018 10:20a [facility] [place] [address] F41.9 [place] F33.9 Office Visit 01/27/2018 10:20a [facility] Internal [place] [address] F41.9 [place] F33.9 G47.00 B35.3 Office Visit 12/22/2017 8:40a [facility] [place] [address] F41.9 [place] F33.9 Office Visit 11/13/2017 10:20a [facility] [place] [address] F41.9 [place] F33.9 Office Visit 10/13/2017 10:20a [facility] [place] [address] F41.9 [place] F33.9 Office Visit 09/10/2017 9:20a [facility] [place] [address] F41.9 [place] F33.9 L29.8 Office Visit 08/11/2017 10:40a [facility] [place] [address] J01.90 [place] F41.9 F43.21 M54.5 Office Visit 07/10/2017 11:20a [facility] [place] [address] F41.9 [place] F43.21 M54.5 Office Visit 06/10/2017 10:40a [facility] [place] [address] F41.9 [place] F43.21 G47.00 Office Visit 05/08/2017 4:00p [facility] [place] [address] F41.9 [place] F43.21 Office Visit 03/27/2017 2:20p [facility] [place] [address] F41.9 [place] F43.21 J01.90 Office Visit 03/07/2017 10:20a [facility] [place] [address] F41.9 [place] F43.21 G47.00 Office Visit 02/05/2017 10:40a [facility] Internal Medicine - Sen Herbert, [place] [address] F41.9 [place] F43.21 Office Visit 01/08/2017 9:20a [facility] Internal Medicine - Sen Herbert, [place] [address] F41.9 [place] Office Visit 12/11/2016 9:20a [facility] Internal Medicine - Sen [place], [place] [address] F41.3 [place] F43.21 Office Visit 11/13/2016 2:00p [facility] Internal Medicine - Sen Herbert, [place] [address] F41.3 [place] F43.21 Office Visit 10/22/2016 2:20p [facility] Internal Medicine Carlos Gray, [address] J20.9 - Elva Gibbons Office Visit 10/11/2016 3:20p [facility] [place] [address] F43.21 - [place] F41.3 Office Visit 06/17/2016 4:00p [facility] [place] [address] R11.2 [place] A02.9 K50.90 Office Visit 06/15/2016 1:27p [facility] Bliss, [place] [address] R10.31 Assoc,pc Hospitalists R11.2 R19.7 K50.90 Office Visit 06/12/2016 1:25p [facility] Assoc,pc Mami Montano, N.P. 11571 R10.31 Hospitalists R19.7 R11.2 K50.90 Office Visit 05/15/2016 4:20p [facility] Internal Medicine - Sen Herbert, [place] [address] R53.83 [place] N92.6 Office Visit 02/13/2016 2:40p [facility] Medicine Carlos Gray, [address] H92.02 - Jesika Gibbons Office Visit 01/15/2016 5:20p [facility] Carlos Gray, [address] J06.9 - Jesika Gibbons Office Visit 10/13/2015 4:20p [facility] Haylee Ashraf M.D. 87449 J01.90 - [place] J20.9 Office Visit 08/01/2015 1:30p [facility] [place] [address] K20.9 Jesika R12 Office Visit 01/25/2014 11:20a [facility] Medicine Carlos Gray, [address] 555.1 - Jesika Gibbons Office Visit 09/06/2013 2:20p [facility] Carlos Gray, [address] 784.1 - Jesika Gibbons Office Visit 01/30/2012 2:45p [facility] Gurwinder Boggs M.D. [address] 719.47 AT Magnet Office Visit 10/29/2011 2:20p [facility] Medicine Carlos Gray, [address] 784.2 - Jesika Gibbons V06.1 244.9 Office Visit 07/10/2011 3:40p DO Not Use Etcher Apprentice AT [facility] Wesley Gray, [address] 724.2 Sheldonfran Castillo.Lamin 244.9 Office Visit 06/28/2011 9:20a DO Not Use Etcher Apprentice AT [facility], [address] V04.81 [facility].Lamin 244.9 553.20 724.2 Office Visit 05/14/2011 4:15p DO Not Use Etcher Apprentice AT Kim Alfred, N.P. [address] 724.2 [facility] Office Visit 10/30/2010 3:00p DO Not Use Etcher Apprentice AT Carlos Wesley Gray, [address] V70.3 Sheldonfran Castillo.Lamin Office Visit 08/15/2009 3:30p [facility] [address] 465.9 [facility].Lamin V70.3 592.9 Plan of Care Future Appointment(s):05/28/2018 10:20 am - Sen Herbert NP at [facility] Internal Medicine - Eklqptnqb74/23/2018 - Sen Herbert NPF41.9 Anxiety disorder, unspecifiedComments:Continue with current medications. You can take the hydroxyzine up to 4 times daily as needed. Continue following with the counselor and Dr. Priest.Follow up:1 iqddsL21.9 Major depressive disorder, recurrent, ntcnpfrskjvD67.03 Otalgia, bilateralComments:There is fluid behind your eardrums. This is likely related to the cold you had a week ago. Continueusing the Flonase daily.
[2018-05-19 18:16] VITALS: BP 142/81
--- NOTE | 2018-05-19 18:21 | UC ---
Neck Pain HPI - HPI Summary HPI Summary: 32 yo female presents with right neck pain since this morning. She tells me that last night her son slept in her bed and she woke up this morning in an awkward position. Had severe neck pain especially with movement. Took tylenol for pain as she cannot take NSAIDs due to Crohn's - had no relief. Says with certain movement she feels shocks go down her her right arm into her fingers. - History of Current Complaint Chief Complaint: UCUpperExtremity Stated Complaint: NECK PAIN Hx Obtained From: Patient Hx Last Menstrual Period: IUD Onset/Duration Of Injury/Symptoms: Hours Onset/Duration: Sudden Onset Severity: Severe Pain Intensity: 10 Pain Scale Used: 0-10 Numeric Character: Stiff, Spasmotic Aggravating Factors: Movement Alleviating Factors: Position - Allergies/Home Medications Allergies/Adverse Reactions: Allergies Allergy/AdvReac Type Severity Reaction Status Date / Time amoxicillin Allergy Severe Swelling Verified 05/19/18 18:17 Of Face,Lips,& Throat erythromycin base Allergy Severe Swelling Verified 05/19/18 18:17 Of Face,Lips,& Throat Penicillins Allergy Severe Swelling Verified 05/19/18 18:17 Of Face,Lips,& Throat codeine [From Robitussin A-C] Allergy Mild scratchy Verified 05/19/18 18:17 throat guaifenesin Allergy Mild scratchy Verified 05/19/18 18:17 [From Robitussin A-C] throat ibuprofen Allergy See Comment Verified 05/19/18 18:17 morphine Allergy Hives Verified 05/19/18 18:17 azithromycin AdvReac Mild Nausea Verified 05/19/18 18:17 doxycycline AdvReac Abdominal Verified 05/19/18 18:17 Pain Home Medications: Home Medications hydrOXYzine HCL TAB* [Atarax 10 MG TAB*] 20 mg PO BEDTIME 05/19/18 [History Confirmed 05/19/18] PMH/Surg Hx/FS Hx/Imm Hx - Additional Past Medical History Additional PMH: Crohn's disease Psychological History: Anxiety, Depression, Post Traumatic Stress Disorder - Surgical History Surgical History: Yes Surgery Procedure, Year, and Place: APPENDECTOMY, CYST ON URETHRA, left KIDNEY STONE, left Kidney ABLATION X 3 - Family History Known Family History: Positive: Cardiac Disease - maternal grandmother and grandfather, Hypertension - mother, Diabetes, Respiratory Disease - Social History Occupation: Disabled Lives: With Family Alcohol Use: None Substance Use Type: None Smoking Status (MU): Heavy Every Day Tobacco Smoker Type: Cigarettes Amount Used/How Often: 1/2 ppd Length of Time of Smoking/Using Tobacco: 10 Years Have You Smoked in the Last Year: Yes - Immunization History Most Recent Influenza Vaccination: 2014 Most Recent Tetanus Shot: 2009 Most Recent Pneumonia Vaccination: never Hx Tetanus, Diphtheria Vaccination: Yes Vaccination Up to Date: Yes Review Of Systems Constitutional: Positive: Negative Skin: Positive: Negative Respiratory: Positive: Negative Cardiovascular: Positive: Negative Musculoskeletal: Positive: Other: - Neck pain Neurological: Positive: Negative Psychological: Positive: Negative All Other Systems Reviewed And Are Negative: Yes Physical Exam - Summary Physical Exam Summary: GENERAL: NAD. WDWN. No pain distress. SKIN: No rashes, sores, lesions, or open wounds. NECK: Supple. No lymphadenopathy. CHEST: No accessory muscle use. Breathing comfortably and in no distress. CV: RRR no m/r/g. Pulses intact radial and ulnar. MSK: RIGHT neck: TTP over trapezius and levator. Pain with shoulder flexion and with reaching outwards. Strength 5/5 including director of managed services strength. No edema or obvious bony deformities. Negative spurlings. NEURO: Alert. Sensations intact C4-T1. PSYCH: Age appropriate behavior. Triage Information Reviewed: Yes Vital Signs: Initial Vital Signs Temp 98.3 F 05/19/18 18:11 Pulse 87 05/19/18 18:11 Resp 18 05/19/18 18:11 BP 142/81 05/19/18 18:11 Pulse Ox 97 05/19/18 18:11 Vital Signs Reviewed: Yes Neck Pain Course/Dx - Course Course Of Treatment: Suspect muscle spasm. Advised to take one tramadol prn in the morning only. Then one flexeril prn at bedtime. Tylenol throughout the day. iSTOP: Reference #: [id number] - Differential Dx/Diagnosis Provider Diagnoses: Neck spasm Discharge - Sign-Out/Discharge Documenting (check all that apply): Patient Departure - Discharge Plan Condition: Stable Disposition: HOME Prescriptions: Cyclobenzaprine TAB* [Flexeril 10 MG TAB*] 10 mg PO BEDTIME PRN #10 tab PRN Reason: Pain traMADol TAB* [Ultram*] 50 mg PO QAM PRN #5 tab MDD 1 PRN Reason: Pain Patient Education Materials: Muscle Spasm (ED) Referrals: Sen Herbert NP [Primary Care Provider] - Additional Instructions: If you develop a fever, shortness of breath, chest pain, new or worsening symptoms - please call your PCP or go to the ED. Your blood pressure was high at todays visit. Please see your primary provider within 4 weeks for recheck and re-evaluation. 1) Apply heat to the area to decrease pain - Billing Disposition and Condition Condition: STABLE Disposition: Home
== END 2018-05-19 18:40 | disposition home or self-care (01) ==
LOC: UCEAST 18:07
DX: M62.838 Other muscle spasm (principal); F41.9 Anxiety disorder, unspecified; Z88.6 Allergy status to analgesic agent; Z88.1 Allergy status to other antibiotic agents; Z88.5 Allergy status to narcotic agent; Z88.0 Allergy status to penicillin; Z88.8 Allergy status to other drugs, medicaments and biological substances; F17.210 Nicotine dependence, cigarettes, uncomplicated
CPT/HCPCS: 99212; G0463

== ENCOUNTER 2018-11-02 16:04 | Emergency (ER) | payer OTHER ==
--- OUTSIDE RECORDS SUMMARY | 2018-11-02 16:38 | XMS REPORT | Continuity of Care Document ---
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 (10 or fewer Began age 13 cigarettes/day) Smoking Status Reviewed: 10/30/18 Light tobacco smoker 1/2 ppd; max 1.5ppd. (10 or fewer Began age 13 cigarettes/day) ETOH Use Rarely consumes alcohol ETOH Use Denies alcohol use Tobacco Use Start: Unknown Light tobacco smoker (10 or fewer cigarettes/day) Exercise Type/Frequency 01/25/2014 Exercises regularly runs a couple days weekly; walks most days Allergies, Adverse Reactions, Alerts Date Description Reaction Status Severity Comments 01/30/2012 Penicillin hives Active 01/30/2012 Zithromax vomiting Active 01/30/2012 Erythromycin Active vomiting 10/13/2015 Doxycycline Active nausea 05/15/2016 Morphine Active swelling and hives 08/15/2009 NKDA Inactive Medications Medication Date Status Form Strength Qnty SIG Indications Ordering Provider Lars Baez 08/25/ Active 1unit Use while M54.5 Sen 2018 s sitting. HOLLY Herbert Prazosin HCL 07/29/ Active Capsules 1mg 30cap 1 at Sen 2018 s bedtime HOLLY Herbert Hydroxyzine HCL 02/26/ Active Tablets 50mg 120ta 1-2 L29.8 Sen 2018 bs tablets 4 HOLLY Herbert times daily as needed Alprazolam 11/13/ Active Tablets 1mg 75tab take 1 F41.3 Sen 2017 s tablet up HOLLY Herbert to three times daily as needed Flonase Allergy 10/13/ Active Suspension 50mcg/Act 16uni spray 1 J01.90 Sen Relief 2015 ts spray in HOLLY Herbert each nostril twice daily Pantoprazole 08/01/ Active Tablets DR 40mg 30tab 1 by mouth K20.9 Sen Sodium 2014 s every day HOLLY Herbert Tylenol / Active Tablets 325mg as needed Unknown 0000 Mirena / Active IUD placed Unknown 2011 per pt Bupropion HCL / Active Tablets ER 300mg 1 by mouth Unknown ER (XL) 0000 24HR every day Venlafaxine HCL / Active Caps ER 150mg Nygren, ER 0000 24HR MD Albina Cefdinir 08/25/ Hx Capsules 300mg 20cap One J01.90 Sen 2017 - s capsule HOLLY Herbert 09/04/ twice 2018 daily Venlafaxine HCL 07/29/ Hx Caps ER 37.5mg 60cap one cap Sen ER 2018 - 24HR s once HOLLY Herbert 08/25/ daily. 2018 Tizanidine HCL 05/22/ Hx Tablets 4mg 40tab 1 tab by M54.2 Tere 2018 - s mouth 3 Cotton, 07/27/ times M.D. 2018 daily as needed Diclofenac 05/22/ Hx Gel 1% 100un apply 4 M54.2 Tere Sodium 2018 - its grams to Cotton, 08/25/ the neck M.D. 2018 and shoulder 4 times a day Cefdinir 03/01/ Hx Capsules 300mg 19cap Twice Unknown 2017 - s Daily 2017 Ketoconazole 01/27/ Hx Cream 2% 30gm apply to B35.3 Sen 2018 - affected HOLLY Herbert 08/25/ area twice 2017 daily Hydroxyzine HCL 09/10/ Hx Tablets 25mg 60tab 1-2 L29.8 Sen 2016 - s tablets by HOLLY Herbert 02/26/ mouth 2017 every 6-8 hours as needed Levofloxacin 08/11/ Hx Tablets 500mg 7tabs one by Jarrett [place] 2017 - mouth HOLLY Herbert 08/18/ daily for 2016 7 days Baclofen 07/25/ Hx Tablets 10mg 60tab take 10/07 [place] 2016 - s tab every HOLLY Herbert 08/11/ 8 hours as 2017 needed for muscle spasm Soma 07/10/ Hx Tablets 250mg 21tab 1 tab by M54.5 [place] 2016 - s mouth HOLLY Herbert 07/22/ three 2017 times a day and at bedtime as needed muscle pain and stiffness Tramadol HCL 07/10/ Hx Tablets 50mg 28tab 1-2 M54.5 [place] 2016 - s tablets HOLLY Herbert 07/22/ every 12 2016 hours as needed for pain. Clonazepam 06/10/ Hx Tablets 0.5mg 15tab 1/2-1 tab F41.9 [place] 2016 - s twice a HOLLY Herbert 06/24/ day as 2016 needed anxiety Levofloxacin 03/27/ Hx Tablets 500mg 7tabs one by JKira [place] 2017 - mouth HOLLY Herbert 04/03/ daily for 2016 7 days Temazepam 03/13/ Hx Capsules 15mg 14cap one [place] 2016 - s capsule by HOLLY Herbert 05/08/ mouth at 2016 bedtime as needed for insomnia Buspirone HCL 02/05/ Hx Tablets 5mg 60tab one tablet F41.9 [place] 2016 - s twice HOLLY Herbert 03/07/ daily 2016 Lexapro 01/08/ Hx Tablets 20mg 30tab Take One F41.3 [place] 2016 - s Tablet By HOLLY Herbert 07/27/ Mouth 2018 Every Day Lexapro 11/13/ Hx Tablets 10mg 30tab 1 [...] 2016 Klonopin 10/11/ Hx Tablets 0.5mg 30tab 1/2-1 F41.3 Sen 2017 - s tablet by HOLLY Herbert 11/13/ [...] 1 by mouth J01.90 Haylee 2015 - 12HR s twice a Andriy, 05/15/ [...] - duty: no Marina, Exam 08/01/ kasi, MAlicia 2014 lifting, prolonged standing for 1 month unless cleared Levothyroxine 07/02/ Hx Tablets 25mcg 90tab 1 po qd Carlos Olson Sodium 2010 - s Marina, 09/06/ M.D. 2013 06/28/ Hx Tablets 14-0.4mg Carlos Olson Complete 2010 - Marina, 10/29/ M.D. 2011 Tylenol 06/28/ Hx Liquid 500mg/15M Carlos Olson 2010 - L Marina, M.D. 2012 Day Time 08/15/ Hx Capsules 10-5-325m prn Carlos Olson Cold/Flu Relief 2008 - g Marina, M.D. 2010 Ibuprofen 08/15/ Hx Tablets 200mg [...] Unknown taminophen 0000 - bs po every 01/25/ - 6 hours 2013 prn pain Asacol HD / Hx Tablets DR 800mg 3 tabs Unknown 0000 - three 08/01/ times a 2014 day Azathioprine 00/ Hx Tablets 50mg 90tab 1/2 tab by Unknown 0000 - s mouth 08/01/ day 2014 Ciprofloxacin 00/ Hx Tablets 500mg Unknown HCL 0000 - 2015 Asacol HD 00/ Hx Tablets DR 800mg 1 tab po Bonilla, 0000 - three Olivia 05/22/ times NISHANT Lambert 2017 daily Azathioprine 00/ Hx Tablets 50mg 1 tab [place], 0000 - daily Olivia 06/17/ NISHANT Lambert 2015 Ciprofloxacin 00/ Hx Tablets 250mg one by Unknown HCL 0000 - mouth 10/11/ twice a 2016 day for 5 days Oxycodone HCL 00/ Hx Tablets 5mg 1-2 by Unknown 0000 - mouth four 10/11/ times a 2016 day as needed Mesalamine 00/ Hx Tablets DR 800mg Take One Unknown 0000 - Tablet By 2017 Three Times A Day Lunesta 00/ Hx Tablets 1mg unknown Unknown 0000 - dose 2016 Bupropion HCL 00/00/ Hx Tablets ER 150mg 60tab 2 by mouth Unknown ER (XL) 0000 - 24HR s every day 2017 Benadryl / Hx Tablets 25mg 1-2 tabs Unknown Allergy 0000 - twice a day for 2018 itching Tramadol HCL / Hx Tablets 50mg 1-2 Unknown 0000 - tablets by 05/22/ 2018 every 6 hours as needed pain Duloxetine HCL / Hx Caps DR 60mg 1 by mouth Sen 0000 - Part every day HOLLY Herbert 2017 Medications Administered in Office Medication Date Status Form Strength Qnty SIG Indications Ordering Provider Influenza Administered Injection Unknown Virus Vaccine 014 Immunizations CPT Code Status Date Vaccine Lot # [id number] Given 10/29/2011 Tdap - Tetanus/Diptheria/Acellular Pertussis [id number] Given 06/28/2011 Influenza Virus 3Yrs & Over [id number] Vital Signs Date Vital Result Comment 10/30/2018 10:09am Height 59.25 inches 4'11.25" Weight 178.31 lb Heart Rate 84 /min BP Systolic 111 mmHg BP Diastolic 69 mmHg Body Temperature 97.5 F O2 % BldC Oximetry 96 % BMI (Body Mass Index) 35.7 kg/m2 09/25/2018 10:26am Height 59.25 inches 4'11.25" Weight 172.00 lb Heart Rate 90 /min BP Systolic 112 mmHg BP Diastolic 79 mmHg O2 % BldC Oximetry 96 % BMI (Body Mass Index) 34.4 kg/m2 08/25/2018 10:42am Height 59.25 inches 4'11.25" Weight 172.00 lb Heart Rate 83 /min BP Systolic 112 mmHg BP Diastolic 75 mmHg O2 % BldC Oximetry 96 % BMI (Body Mass Index) 34.4 kg/m2 07/29/2018 10:50am Height 59.25 inches 4'11.25" Weight 172.00 lb Heart Rate 90 /min BP Systolic Sitting 108 mmHg BP Diastolic Sitting 73 mmHg O2 % BldC Oximetry 95 % BMI (Body Mass Index) 34.4 kg/m2 06/29/2018 10:14am Height 59.25 inches 4'11.25" Weight 175.00 lb Heart Rate 64 /min BP Systolic 105 mmHg BP Diastolic 71 mmHg Body Temperature 97.6 F O2 % BldC Oximetry 95 % BMI (Body Mass Index) 35.0 kg/m2 05/28/2018 10:13am Height 59.25 inches 4'11.25" Weight 173.00 lb Heart Rate 74 /min BP Systolic Sitting 101 mmHg BP Diastolic Sitting 73 mmHg O2 % BldC Oximetry 96 % BMI (Body Mass Index) 34.6 kg/m2 05/22/2018 1:57pm Height 59.25 inches 4'11.25" Weight 172.00 lb Heart Rate 77 /min BP Systolic Sitting 122 mmHg BP Diastolic Sitting 86 mmHg O2 % BldC Oximetry 95 % BMI (Body Mass Index) 34.4 kg/m2 04/27/2018 10:09am Height 59.25 inches 4'11.25" Weight 172.75 lb Heart Rate 89 /min BP Systolic 120 mmHg BP Diastolic 78 mmHg Body Temperature 98.1 F O2 % BldC Oximetry 97 % BMI (Body Mass Index) 34.6 kg/m2 03/30/2018 10:19am Weight 171.50 lb Heart Rate 68 /min BP Systolic 130 mmHg BP Diastolic 76 mmHg Body Temperature 98.8 F O2 % BldC Oximetry 95 % 02/26/2018 10:09am Weight 172.00 lb Heart Rate 63 /min BP Systolic 126 mmHg BP Diastolic 76 mmHg Body Temperature 96.4 F O2 % BldC Oximetry 95 % 01/27/2018 10:05am Weight 174.25 lb Heart Rate 77 /min BP Systolic 126 mmHg BP Diastolic 76 mmHg Body Temperature 96.9 F O2 % BldC Oximetry 98 % 12/22/2017 8:35am Weight 173.50 lb Heart Rate 80 /min BP Systolic 118 mmHg BP Diastolic 66 mmHg Body Temperature 97.2 F O2 % BldC Oximetry 989 % 11/13/2017 10:10am Weight 169.50 lb Heart Rate 69 /min BP Systolic Sitting 118 mmHg BP Diastolic Sitting 78 mmHg O2 % BldC Oximetry 96 % 10/13/2017 10:45am Weight 170.00 lb Heart Rate 73 /min BP Systolic 118 mmHg BP Diastolic 80 mmHg Body Temperature 97.9 F O2 % BldC Oximetry 95 % 09/10/2017 9:03am Height 59 inches 4'11" Weight 164.00 lb Heart Rate 81 /min BP Systolic Sitting 118 mmHg BP Diastolic Sitting 74 mmHg Body Temperature 97.1 F O2 % BldC Oximetry 96 % BMI (Body Mass Index) 33.1 kg/m2 08/11/2017 10:49am Weight 160.50 lb Heart Rate 74 /min BP Systolic Sitting 122 mmHg BP Diastolic Sitting 80 mmHg O2 % BldC Oximetry 97 % 07/10/2017 11:19am Weight 160.00 lb Heart Rate 76 /min BP Systolic Sitting 124 mmHg BP Diastolic Sitting 80 mmHg O2 % BldC Oximetry 98 % 06/10/2017 10:50am Weight 162.00 lb Heart Rate 71 /min BP Systolic 110 mmHg BP Diastolic 60 mmHg O2 % BldC Oximetry 98 % 05/08/2017 4:11pm Heart Rate 66 /min BP Systolic Sitting 126 mmHg BP Diastolic Sitting 76 mmHg O2 % BldC Oximetry 98 % 03/27/2017 2:25pm Weight 153.00 lb Heart Rate 71 /min BP Systolic Sitting 114 mmHg BP Diastolic Sitting 72 mmHg Body Temperature 98.1 F O2 % BldC Oximetry 96 % 03/07/2017 10:04am Height 97.6 inches 8'1.60" Weight 153.75 lb Heart Rate 72 /min BP Systolic 120 mmHg BP Diastolic 68 mmHg O2 % BldC Oximetry 92 % BMI (Body Mass Index) 11.3 kg/m2 02/05/2017 10:49am Weight 154.75 lb Heart Rate 68 /min BP Systolic 102 mmHg BP Diastolic 66 mmHg Body Temperature 98.1 F O2 % BldC Oximetry 96 % 01/08/2017 9:21am Weight 150.00 lb Heart Rate 76 /min BP Systolic Sitting 108 mmHg BP Diastolic Sitting 54 mmHg Body Temperature 98.2 F O2 % BldC Oximetry 98 % 12/11/2016 9:10am Weight 149.00 lb Heart Rate 84 /min BP Systolic Sitting 104 mmHg BP Diastolic Sitting 68 mmHg O2 % BldC Oximetry 98 % 11/13/2016 2:02pm Height 60 inches 5'0" Weight 147.00 lb Heart Rate 86 /min BP Systolic Sitting 124 mmHg BP Diastolic Sitting 86 mmHg O2 % BldC Oximetry 98 % BMI (Body Mass Index) 28.7 kg/m2 10/22/2016 2:19pm Weight 149.00 lb Heart Rate 98 /min BP Systolic Sitting 126 mmHg BP Diastolic Sitting 74 mmHg Body Temperature 98.7 F O2 % BldC Oximetry 98 % 10/11/2016 3:30pm Weight 146.00 lb Heart Rate 84 /min BP Systolic Sitting 124 mmHg BP Diastolic Sitting 80 mmHg Respiratory Rate 15 /min Body Temperature 98.5 F O2 % BldC Oximetry 98 % 06/17/2016 3:52pm Height 60 inches 5'0" Weight 147.75 lb Heart Rate 83 /min BP Systolic 110 mmHg BP Diastolic 78 mmHg Body Temperature 96.9 F O2 % BldC Oximetry 95 % BMI (Body Mass Index) 28.9 kg/m2 05/15/2016 4:25pm Weight 148.00 lb with shoes Heart Rate 77 /min BP Systolic Sitting 108 mmHg BP Diastolic Sitting 82 mmHg Body Temperature 97.8 F O2 % BldC Oximetry 99 % 02/13/2016 2:36pm Weight 150.00 lb Heart Rate 81 /min BP Systolic Sitting 116 mmHg BP Diastolic Sitting 78 mmHg Body Temperature 98.1 F 01/15/2016 5:31pm Height 59 inches 4'11" Weight 150.00 lb Heart Rate 95 /min BP Systolic Sitting 114 mmHg BP Diastolic Sitting 64 mmHg Respiratory Rate 16 /min Body Temperature 98.6 F O2 % BldC Oximetry 96 % BMI (Body Mass Index) 30.3 kg/m2 10/13/2015 4:29pm Weight 150.75 lb Heart Rate 79 /min BP Systolic Sitting 116 mmHg BP Diastolic Sitting 81 mmHg Body Temperature 98.8 F O2 % BldC Oximetry 98 % 08/01/2015 1:26pm Height 59 inches 4'11" Weight 152.00 lb Heart Rate 97 /min BP Systolic 100 mmHg BP Diastolic 70 mmHg Body Temperature 98.9 F O2 % BldC Oximetry 98 % BMI (Body Mass Index) 30.7 kg/m2 01/25/2014 11:11am Weight 149.00 lb Heart Rate 78 /min BP Systolic Sitting 108 mmHg BP Diastolic Sitting 72 mmHg 09/06/2013 2:24pm Height 59 inches 4'11" Weight 145.00 lb Heart Rate 96 /min BP Systolic Sitting 110 mmHg BP Diastolic Sitting 88 mmHg Body Temperature 97.9 F BMI (Body Mass Index) 29.3 kg/m2 01/30/2012 2:49pm Weight 140.00 lb Heart Rate 78 /min BP Systolic Sitting 122 mmHg BP Diastolic Sitting 84 mmHg 10/29/2011 2:09pm Height 58.5 inches 4'10.50" Weight 134.75 lb Heart Rate 80 /min BP Systolic Sitting 118 mmHg BP Diastolic Sitting 70 mmHg BMI (Body Mass Index) 27.7 kg/m2 07/10/2011 3:58pm Height 58.5 inches 4'10.50" Weight 158.00 lb Heart Rate 100 /min BP Systolic Sitting 130 mmHg BP Diastolic Sitting 68 mmHg BMI (Body Mass Index) 32.5 kg/m2 06/28/2011 9:23am Height 58.75 inches 4'10.75" Weight 154.00 lb Heart Rate 96 /min BP Systolic Sitting 114 mmHg BP Diastolic Sitting 66 mmHg BMI (Body Mass Index) 31.4 kg/m2 05/14/2011 4:05pm Weight 147.00 lb Heart Rate 90 /min BP Systolic Sitting 116 mmHg BP Diastolic Sitting 70 mmHg 10/30/2010 4:04pm Weight 143.00 lb Heart Rate 76 /min BP Systolic Sitting 120 mmHg BP Diastolic Sitting 82 mmHg O2 % BldC Oximetry 99 % 08/15/2009 3:37pm Height 58.5 inches 4'10.50" Weight 141.00 lb Heart Rate 76 /min BP Systolic Sitting 102 mmHg BP Diastolic Sitting 62 mmHg BMI (Body Mass Index) 29.0 kg/m2 Results Test Date Facility Test Result H/L Range Note Urine Culture And 07/20/2018 [facility] Urine Culture SEE RESULT [address] [place] [address] [phone] Urinalysis Profile 07/20/2018 [facility] Urine Color Yellow [address] [place] [address] [phone] Urine Appearance Cloudy Urine Specific [place] 1.019 N 1.010-1.030 Urine pH 5.0 N 5-9 Urine Urobilinogen Negative Negative Urine Ketones Negative Negative Urine Protein Negative Negative Urine Leukocytes 1+ Abnormal Negative Urine Blood Negative Negative Urine Nitrite Negative Negative Urine Bilirubin Negative Negative Urine Glucose Negative Negative Urine White Blood Cell Trace(0-5/hpf) Absent Urine Red Blood Cell Trace(0-2/hpf) Absent Urine Bacteria Absent Absent Urine Squamous Epithelial Cell Present Abnormal Absent CBC Auto 07/20/2018 [facility] White Blood 11.2 10^3/uL High 3.5-10.[address] [place] [address] [phone] Red Blood Count 5.17 10^6/uL N 4.00-5.40 Hemoglobin 15.0 g/dL N 12.0-16.0 Hematocrit 43 % N 35-47 Mean Corpuscular Volume 83 fL N 80-97 Mean Corpuscular Hemoglobin 29 pg N 27-31 Mean Corpuscular HGB Conc 35 g/dL N 31-36 Red Cell Distribution Width 13 % N 10.5-15 Platelet Count 367 10^3/uL N 150-450 Mean Platelet Volume 7.4 um3 N 7.4-10.4 Abs Neutrophils 7.0 10^3/uL N 1.5-7.7 Abs Lymphocytes 3.4 10^3/uL N 1.0-4.8 Abs Monocytes 0.7 10^3/uL N 0-0.8 Abs Eosinophils 0.2 10^3/uL N 0-0.6 Abs Basophils 0.1 10^3/uL N 0-0.2 Abs Nucleated RBC 0 10^3/uL Granulocyte % 61.9 % N 38-83 Lymphocyte % 30.1 % N 25-47 Monocyte % 5.9 % N 0-7 Eosinophil % 1.4 % N 0-6 Basophil % 0.7 % N 0-2 Nucleated Red Blood Cells % 0.1 Comp Metabolic Panel 07/20/2018 [facility] Sodium 137 mmol/L N 135-[address] [place] [address] [phone] Potassium 3.9 mmol/L N 3.5-5.0 Chloride 106 mmol/L N 101-111 Co2 Carbon Dioxide 25 mmol/L N 22-32 Anion Gap 6 mmol/L N 2-11 Glucose 102 mg/dL High 70-100 Blood Urea Nitrogen 8 mg/dL N 6-24 Creatinine 0.84 mg/dL N 0.51-0.95 BUN/Creatinine Ratio 9.5 N 8-20 Calcium 9.9 mg/dL N 8.6-10.3 Total Protein 7.2 g/dL N 6.4-8.9 Albumin 4.7 g/dL N 3.2-5.2 Globulin 2.5 g/dL N 2-4 Albumin/Globulin Ratio 1.9 N 1-3 Total Bilirubin 0.50 mg/dL N 0.2-1.0 Alkaline Phosphatase 72 U/L N 34-104 Alt 25 U/L N 7-52 Ast 20 U/L N 13-39 Egfr Non- 78.1 >60 Egfr 94.5 >60 2 Urine Drug 07/20/2018 [facility] Amphetamine Ur None Detected None Detect SCR ED & [address] Screen [place] [address] [phone] Barbiturates Urine Screen None Detected None Detect Benzodiazepine Urine Screen Presumptive Posi <SEE NOTE> Abnormal None Detect 3 Urine Cannabinoids Screen None Detected None Detect Urine Cocaine Screen None Detected None Detect Urine Opiates Screen None Detected None Detect Urine Phencyclidine Screen None Detected None Detect 4 Laboratory test 07/20/2018 [facility] Acetaminophen < 15 g/mL [address] [place] [address] [phone] Alcohol < 10 mg/dL N <10 Salicylate < 2.50 mg/dL <30 HCG < 0.60 mIU/mL 6 TSH (Thyroid Stim Horm) 1.55 mcIU/mL N 0.34-5.60 Laboratory test 03/01/2018 [facility] Rapid Strep Negative Negative [address] [place] [address] [phone] CBC Auto Diff 06/12/2016 [facility] White Blood 12.9 10^3/uL High 3.5-10.[address] [place] [address] [phone] Red Blood Count 4.89 10^6/uL N 4.0-5.4 Hemoglobin 14.5 g/dL N 12.0-16.0 Hematocrit 43 % N 35-47 Mean Corpuscular Volume 88 fL N 80-97 Mean Corpuscular Hemoglobin 30 pg N 27-31 Mean Corpuscular HGB Conc 34 g/dL N 31-36 Red Cell Distribution Width 13 % N 10.5-15 Platelet Count 218 10^3/uL N 150-450 Mean Platelet Volume 9 um3 N 7.4-10.4 Abs Neutrophils 11.6 10^3/uL High 1.5-7.7 Abs Lymphocytes 0.6 10^3/uL Low 1.0-4.8 Abs Monocytes 0.6 10^3/uL N 0-0.8 Abs Eosinophils 0 10^3/uL N 0-0.6 Abs Basophils 0.1 10^3/uL N 0-0.2 Abs Nucleated RBC 0 10^3/uL N Granulocyte % 90.0 % High 38-83 Lymphocyte % 4.9 % Low 25-47 Monocyte % 4.3 % N 1-9 Eosinophil % 0.1 % N 0-6 Basophil % 0.7 % N 0-2 Nucleated Red Blood Cells % 0 N Laboratory test 06/12/2016 [facility] HCG < 0.60 N [address] mIU/[place] [address] [phone] Comp Metabolic 06/12/2016 [facility] Sodium 135 mmol/L N 133- [address] [place] [address] [phone] Potassium 4.0 mmol/L N 3.5-5.0 Chloride 106 mmol/L N 101-111 Co2 Carbon Dioxide 22 mmol/L N 22-32 Anion Gap 7 mmol/L N 2-11 Glucose 93 mg/dL N 70-100 Blood Urea Nitrogen 8 mg/dL N 6-24 Creatinine 0.80 mg/dL N 0.51-0.95 BUN/Creatinine Ratio 10.0 N 8-20 Calcium 9.3 mg/dL N 8.6-10.3 Total Protein 6.9 g/dL N 6.4-8.9 Albumin 4.2 g/dL N 3.2-5.2 Globulin 2.7 g/dL N 2-4 Albumin/Globulin Ratio 1.6 N 1-3 Total Bilirubin 0.40 mg/dL N 0.2-1.0 Alkaline Phosphatase 65 U/L N 34-104 Alt 48 U/L N 7-52 Ast 61 U/L High 13-39 Egfr Non- 83.7 N >60 Egfr 107.6 N >60 9 Laboratory test finding 06/12/2016 [facility] Lipase 23 U/L N 11.0-82.[address] [place] [address] [phone] C Reactive Protein 66.07 mg/L High < 5.00 10 Lactic Acid 0.6 mmol/L N 0.5-2.0 11 Blood Culture SEE RESULT BELOW 12 Laboratory test 05/16/2016 [facility] TSH (Thyroid 1.46 mcIU/mL N 0.34-5.[address] Stim Horm) [place] [address] [phone] CBC Auto Diff 05/16/2016 [facility] White Blood 9.6 10^3/uL N 3.5-10.[address] [place] [address] [phone] Red Blood Count 4.64 10^6/uL N 4.0-5.4 Hemoglobin 13.8 g/dL N 12.0-16.0 Hematocrit 41 % N 35-47 Mean Corpuscular Volume 88 fL N 80-97 Mean Corpuscular Hemoglobin 30 pg N 27-31 Mean Corpuscular HGB Conc 34 g/dL N 31-36 Red Cell Distribution Width 13 % N 10.5-15 Platelet Count 274 10^3/uL N 150-450 Mean Platelet Volume 9 um3 N 7.4-10.4 Abs Neutrophils 6.1 10^3/uL N 1.5-7.7 Abs Lymphocytes 2.8 10^3/uL N 1.0-4.8 Abs Monocytes 0.5 10^3/uL N 0-0.8 Abs Eosinophils 0.1 10^3/uL N 0-0.6 Abs Basophils 0.1 10^3/uL N 0-0.2 Abs Nucleated RBC 0 10^3/uL N Granulocyte % 63.3 % N 38-83 Lymphocyte % 29.6 % N 25-47 Monocyte % 5.2 % N 1-9 Eosinophil % 1.2 % N 0-6 Basophil % 0.7 % N 0-2 Nucleated Red Blood Cells % 0 N Comp Metabolic Panel 05/16/2016 [facility] Sodium 137 mmol/L N 133-[address] [place] [address] [phone] Potassium 3.9 mmol/L N 3.5-5.0 Chloride 106 mmol/L N 101-111 Co2 Carbon Dioxide 23 mmol/L N 22-32 Anion Gap 8 mmol/L N 2-11 Glucose 112 mg/dL High 70-100 Blood Urea Nitrogen 12 mg/dL N 6-24 Creatinine 0.80 mg/dL N 0.51-0.95 BUN/Creatinine Ratio 15.0 N 8-20 Calcium 9.4 mg/dL N 8.6-10.3 Total Protein 6.4 g/dL N 6.4-8.9 Albumin 4.3 g/dL N 3.2-5.2 Globulin 2.1 g/dL N 2-4 Albumin/Globulin Ratio 2.0 N 1-3 Total Bilirubin 0.40 mg/dL N 0.2-1.0 Alkaline Phosphatase 49 U/L N 34-104 Alt 14 U/L N 7-52 Ast 16 U/L N 13-39 Egfr Non- 83.7 N >60 Egfr 107.6 N >60 13 Laboratory test 05/16/2016 [facility] Vitamin B12 182 pg/mL N 180-914 [address] [place] [address] [phone] Vitamin D Total 25(Oh) 21.8 ng/mL Low 30-50 Laboratory test 11/13/2015 [facility] Urine Culture SEE RESULT [address] [place] [address] Sensitivities [phone] Laboratory test 10/09/2015 [facility] Rapid Strep Negative N Negative [address] [place] [address] [phone] Laboratory test 10/09/2015 [facility] Throat-Beta SEE RESULT [address] [place] [address] [phone] Laboratory test 02/15/2015 [facility] Urine Culture SEE RESULT [address] [place] [address] [phone] Urine Culture 12/30/2014 [facility] Urine Culture (SEE NOTE) [address] [place] [place] [address] [phone] Urine Culture 02/27/2014 [facility] Urine Culture (SEE NOTE) [address] [place] [address] [phone] Urine Culture 11/23/2013 [facility] Urine Culture (SEE NOTE) [address] [place] [address] [phone] Stool Culture 08/16/2013 [facility] Stool Culture (SEE NOTE) [address] [place] [address] [phone] Laboratory test 08/16/2013 [facility] O P: (SEE NOTE) [address] Giardia/[place] [address] or Screen [phone] GC/Chlamydia 08/16/2013 [facility] GC/Chlamydia Rna (SEE NOTE) 24 Amplified Rna [address] [place] [address] [phone] Urine Culture 08/16/2013 [facility] Urine Culture (SEE NOTE) [address] [place] [address] [phone] Laboratory test 08/10/2012 [facility] Magnesium 2.4 mg/dL 1.7 -2.6 finding [address] [place] [address] [phone] Basic Metabolic 08/10/2012 [facility] Sodium 136 mmol/L 133- 145 Panel [address] [place] [address] [phone] Potassium 4.5 mmol/L 3.5-5.0 Chloride 105 mmol/L 101-111 Co2 Carbon Dioxide 24.0 mmol/L 22-32 Anion Gap 7.0 mmol/L 2-11 Glucose 83 mg/dL 70-100 Blood Urea Nitrogen 9 mg/dL 6-24 Creatinine 0.70 mg/dL 0.50-1.40 BUN/Creatinine Ratio 12.9 8-20 Calcium 9.8 mg/dL 8.1-9.9 Egfr Non- 100.4 >60 Egfr 129.1 >60 26 Basic Metabolic Panel 12/06/2011 [facility] Sodium 137 mmol/L 135-145 [address] [place] [address] [phone] Potassium 4.6 mmol/L 3.5-5.0 Chloride 105 mmol/L 101-111 Co2 (Carbon Dioxide) 25.0 mmol/L 22-32 Anion Gap 7.0 mmol/L 2-11 27 Glucose 86 mg/dL 70-100 BUN 9 mg/dL 6-24 Creatinine 0.7 mg/dL 0.50-1.40 One Over Creatinine 1.42 BUN/Creatinine Ratio 12.9 8-20 Calcium 9.5 mg/dL 8.1-9.9 eGFR Non- 101.1 > 60 eGFR 130.1 > 60 28 Laboratory test 12/06/2011 [facility] Thyroxine Free 0.64 ng/dL 0.61-1.24 finding [address] [place] [address] [phone] TSH 2.08 MIU/ML 0.34-5.60 CBC Auto Diff 12/06/2011 [facility] White Blood 8.2 CUMM 4.8- 10.[address] [place] [address] [phone] Red Cell Count 4.26 CUMM 4.2-5.4 Hemoglobin 13.1 g/dL 12.0-16.0 Hematocrit 38 % 35-47 Mean Corpuscular Volume 90 um3 79-97 Mean Corpuscular Hemoglob 31 pg 27-31 Mean Corpuscular HGB Cone 34 g/dL 32-36 Redcell Distribution WDTH 14 % 10.5-15 Platelet Count 307 CUMM 150-450 Mean Platelet Volume 8.9 um3 7.4-10.4 29 Manual Differential 12/06/2011 [facility] Polysegmented 69 % 38-83 101 [facility] [place] [address] [phone] Lymphocyte 27 % 25-47 Monocyte 4 % 0-13 Absolute Neutrophil Count 5.6 RBC Morphology NORMAL Laboratory test 12/06/2011 [facility] Magnesium 2.2 mg/dL 1.7 -2.6 finding 101 [place] [address] [phone] Comp Metabolic 10/07/2011 [facility] Sodium 139 mmol/L 135- 145 Panel [address] [place] [address] [phone] Potassium 2.9 mmol/L Low 3.5-5.0 Chloride 105 mmol/L 101-111 Co2 (Carbon Dioxide) 26.0 mmol/L 22-32 Anion Gap 8.0 mmol/L 2-11 30 Glucose 127 mg/dL High 70-100 BUN 11 mg/dL 6-24 Creatinine 0.6 mg/dL 0.50-1.40 One Over Creatinine 1.66 BUN/Creatinine Ratio 18.3 8-20 Calcium 10.0 mg/dL High 8.1-9.9 Total Protein 5.7 GM/DL Low 6.2-8.1 Albumin 2.8 GM/DL Low 3.6-5.4 Globulin 2.9 GM/DL 2-4 Albumin/Globulin Ratio 1.0 1-3 Bilirubin Total 0.5 mg/dL 0.4-1.5 31 Alkaline Phosphatase 81 U/L 30-110 Alt (SGPT) 15 U/L 14-54 Ast (Sgot) 20 U/L 12-42 eGFR Non- 120.8 > 60 eGFR 155.4 > 60 32 CBC Auto Diff 10/07/2011 [facility] White Blood 9.0 CUMM 4.8- 10.[address] [place] [place] [address] [phone] Red Cell Count 3.43 CUMM Low 4.2-5.4 Hemoglobin 10.7 g/dL Low 12.0-16.0 Hematocrit 31 % Low 35-47 Mean Corpuscular Volume 90 um3 79-97 Mean Corpuscular Hemoglob 31 pg 27-31 Mean Corpuscular HGB Cone 35 g/dL 32-36 Redcell Distribution WDTH 14 % 10.5-15 Platelet Count 262 CUMM 150-450 Mean Platelet Volume 8.2 um3 7.4-10.4 33 Manual Differential 10/07/2011 [facility] Polysegmented 66 % 38-[address] [place] [address] [phone] Lymphocyte 32 % 25-47 Monocyte 1 % 0-13 Eosinophil 1 % 0-6 Absolute Neutrophil Count 5.9 Anisocytosis SLIGHT Laboratory test 10/07/2011 [facility] Magnesium 1.6 mg/dL Low 1.7-2.[address] [place] [address] [phone] Troponin-I 0.01 NG/ML 0-0.06 34 TSH 4.73 MIU/ML 0.34-5.60 Throat-Beta Strept 08/08/2011 [facility] Throat-Beta Strep NF [address] [place] [address] [phone] Urine Culture & 08/08/2011 [facility] Urine Culture NG [address] [place] [address] [phone] Laboratory test 07/10/2011 [facility] Thyroxine Free 0.64 0.61-[address] ng/dL .24 [place] [address] [phone] TSH 0.82 MIU/ML 0.34-5.60 Basic Metabolic Panel 07/10/2011 [facility] Sodium 140 mmol/L 135-[address] [place] [address] [phone] Potassium 3.6 mmol/L 3.5-5.0 Chloride 107 mmol/L 101-111 Co2 (Carbon Dioxide) 24.0 mmol/L 22-32 Anion Gap 9.0 mmol/L 2-11 37 Glucose 75 mg/dL 70-100 BUN 3 mg/dL Low 6-24 Creatinine 0.5 mg/dL Low 0.50-1.40 One Over Creatinine 2.00 BUN/Creatinine Ratio 6.0 Low 8-20 Calcium 9.7 mg/dL 8.1-9.9 eGFR Non- 149.1 > 60 eGFR 191.8 > 60 38 Laboratory test 03/16/2011 [facility] Stool For POSITIVE Abnormal Negative finding [address] [place] [address] [phone] Urinalysis 03/16/2011 [facility] Ua Color YELLOW Yellow [address] [place] [address] [phone] Appearance-Urine CLEAR Clear Specific Deshler-Ur 1.012 1.010-1.030 Esterase-Urine NEGATIVE Negative Nitrite NEGATIVE Negative Mstchfenytsr-Pf-MII NEGATIVE Negative Protein-Urine NEGATIVE Negative PH-Urine 6.5 5-9 Blood-Urine NEGATIVE Negative Ketones-Urine 2+ Abnormal Negative Bilirubin-Ur NEGATIVE Negative Glucose-Urine NEGATIVE Negative CBC Auto Diff 03/16/2011 [facility] White Blood 14.2 CUMM High 4.8-10.[address] [place] [address] [phone] Red Cell Count 4.26 CUMM 4.2-5.4 Hemoglobin 13.0 g/dL 12.0-16.0 Hematocrit 38 % 35-47 Mean Corpuscular Volume 89 um3 79-97 Mean Corpuscular Hemoglob 31 pg 27-31 Mean Corpuscular HGB Cone 34 g/dL 32-36 Redcell Distribution WDTH 13 % 10.5-15 Platelet Count 292 CUMM 150-450 Mean Platelet Volume 8.2 um3 7.4-10.4 39 Manual Differential 03/16/2011 [facility] Polysegmented 76 % 38-[address] [place] [address] [phone] Lymphocyte 21 % Low 25-47 Monocyte 3 % 0-13 Absolute Neutrophil Count 10.7 RBC Morphology NORMAL Comp Metabolic Panel 03/16/2011 [facility] Sodium 136 mmol/L 135-[address] [place] [address] [phone] Potassium 3.8 mmol/L 3.5-5.0 Chloride 107 mmol/L 101-111 Co2 (Carbon Dioxide) 23.0 mmol/L 22-32 Anion Gap 6.0 mmol/L 2-11 40 Glucose 99 mg/dL 70-100 BUN 3 mg/dL Low 6-24 Creatinine 0.40 mg/dL Low 0.50-1.40 One Over Creatinine 2.50 BUN/Creatinine Ratio 7.5 Low 8-20 Calcium 9.4 mg/dL 8.1-9.9 Total Protein 6.3 GM/DL 6.2-8.1 Albumin 3.8 GM/DL 3.6-5.4 Globulin 2.5 GM/DL 2-4 Albumin/Globulin Ratio 1.5 1-3 Bilirubin Total 0.6 mg/dL 0.4-1.5 41 Alkaline Phosphatase 47 U/L 30-110 Alt (SGPT) 57 U/L High 14-54 Ast (Sgot) 49 U/L High 12-42 eGFR Non- 192.9 > 60 eGFR 248.1 > 60 42 Laboratory test finding 03/16/2011 [facility] Lipase 37 U/L 22-51 [place] [address] [phone] BHCG Quantitative 38022.0 MIU/ML High 0-5 43 C Reactive Protein 1.9 mg/dL High Less Than 0.5 Surgical 03/14/2011 [facility] Surgical 44 Pathology Pathology <SEE NOTE> [place] [address] [phone] Wet Prep 03/14/2011 [facility] Wet Prep MODERATE ([address] <SEE NOTE> [place] [address] [phone] Type & Screen 03/13/2011 [facility] Patient Blood AB [place]ITIVE [place] [address] [phone] Antibody Screen NEGATIVE Comp Metabolic Panel 03/13/2011 [facility] Sodium 137 mmol/L 135-145 [place] [address] [phone] Potassium 3.1 mmol/L Low 3.5-5.0 Chloride 106 mmol/L 101-111 Co2 (Carbon Dioxide) 23.0 mmol/L 22-32 Anion Gap 8.0 mmol/L 2-11 46 Glucose 100 mg/dL 70-100 BUN 10 mg/dL 6-24 Creatinine 0.50 mg/dL 0.50-1.40 One Over Creatinine 2.00 BUN/Creatinine Ratio 20.0 8-20 Calcium 9.5 mg/dL 8.1-9.9 Total Protein 6.1 GM/DL Low 6.2-8.1 Albumin 3.9 GM/DL 3.6-5.4 Globulin 2.2 GM/DL 2-4 Albumin/Globulin Ratio 1.8 1-3 Bilirubin Total 0.5 mg/dL 0.4-1.5 47 Alkaline Phosphatase 43 U/L 30-110 Alt (SGPT) 35 U/L 14-54 Ast (Sgot) 30 U/L 12-42 eGFR Non- 149.1 > 60 eGFR 191.8 > 60 48 CBC Auto Diff 03/13/2011 [facility] White Blood 9.8 CUMM 4.8- 10.[address] [place] [address] [phone] Red Cell Count 3.99 CUMM Low 4.2-5.4 [...] 0-0.6 Abs Basophils 0 0-0.2 Protime 03/13/2011 [facility] Inr 0.95 0.82-1.[address] [place] [address] [phone] Protime 11.2 SEC 10.2-14.8 50 Laboratory 03/13/2011 [facility] PTT (Aptt) 28.1 25.15-38.53 [place] [address] [phone] Laboratory 03/13/2011 [facility] [address].0 High 0-5 51 test finding Quantitative MIU/[place] [address] [phone] Urinalysis 03/13/2011 [facility] Ua Color YELLOW Yellow W/[place] [address] [phone] Appearance-Urine CLEAR Clear Specific Deshler-Ur 1.004 Low 1.010-1.030 Esterase-Urine TRACE Abnormal Negative Nitrite NEGATIVE Negative Jycgzesfregg-Sd-LHQ NEGATIVE Negative Protein-Urine NEGATIVE Negative PH-Urine 6.0 5-9 Blood-Urine NEGATIVE Negative Ketones-Urine TRACE Abnormal Negative Bilirubin-Ur NEGATIVE Negative Glucose-Urine NEGATIVE Negative WBC-Urine 3-5 0-5 RBC-Urine 1-3 0-2 Epith Cells-Ur FEW None Bacteria-Urine TRACE None Amorphous Sed-U TRACE None Crystals-Urine (SEE NOTE) None 52 CBC No Diff 02/25/2011 [facility] White Blood Count 9.8 CUMM 4.8-10.8 [place] [address] [phone] Red Cell Count 4.27 CUMM 4.2-5.4 Hemoglobin 12.9 g/dL 12.0-16.0 Hematocrit 38 % 35-47 Mean Corpuscular Volume 89 um3 79-97 Mean Corpuscular Hemoglob 30 pg 27-31 Mean Corpuscular HGB Cone 34 g/dL 32-36 Redcell Distribution WDTH 13 % 10.5-15 Platelet Count 300 CUMM 150-450 Mean Platelet Volume 8.8 um3 7.4-10.4 Laboratory test 02/25/2011 [facility] 120[address].0 High 0-5 53 finding 101 Quantitative MIU/[place] [address] [phone] Laboratory test 11/26/2010 [facility] Monospot NEGATIVE Negative finding [address] [place] [address] [phone] Bruno Silva 11/26/2010 [facility] Ebv Vca Igg Positive Negative Comprehensive [address] [place] [address] [phone] Ebv Vca Igm Negative Negative Ebna Positive Negative Ebv Interpretation SEE BELOW () 54 Urine Culture 07/09/2010 [facility] Urine Culture ESCHERICHIA COLI [address] [place] [address] [phone] Ursc-1 07/09/2010 [facility] Ampicillin <=[address] [place] [address] [phone] Amikacin <=2 S Ciprofloxacin <=0.25 S Ceftriaxone <=1 S Cefazolin <=4 S Nitrofurantoin <=16 S Gentamicin <=1 S Imipenem <=1 S Levofloxacin <=0.12 S Trimeth-Sulfa <=20 S Ceftazidime <=1 S Tigecycline <=0.5 S Piperacillin/Tazobactam <=4 S CMP Panel Stat 02/01/2010 [facility] Sodium 137 mmol/L 135- 145 [address] [place] [address] [phone] Potassium 4.1 mmol/L 3.5-5.0 Chloride 107 mmol/L 101-111 Co2 (Carbon Dioxide) 22.0 mmol/L 22-32 Anion Gap 8.0 mmol/L 2-11 56 Glucose 102 mg/dL High 70-100 57 BUN 10 mg/dL 6-24 Creatinine 0.60 mg/dL 0.50-1.40 One Over Creatinine 1.60 BUN/Creatinine Ratio 16.7 8-20 Calcium 9.2 mg/dL 8.1-9.9 58 Total Protein 7.0 GM/DL 6.2-8.1 Albumin 4.3 GM/DL 3.6-5.4 Globulin 2.7 GM/DL 2-4 Albumin/Globulin Ratio 1.6 1-3 Bilirubin Total 0.4 mg/dL 0.4-1.5 59 Alkaline Phosphatase 57 U/L 30-110 Alt (SGPT) 18 U/L 14-54 Ast (Sgot) 20 U/L 12-42 eGFR Non- 129.5 > 60 eGFR 156.6 > 60 60 CBC With Manual 02/01/2010 [facility] White Blood 9.6 CUMM 4.8-10.[address] [place] [address] [phone] Red Cell Count 4.60 CUMM 4.2-5.4 Hemoglobin [...] Absolute Neutrophil Count 5.3 RBC Morphology NORMAL HCG () 02/01/2010 [facility] Specific 1.011 1.010- 1.030 Urine Stat [address] [place], [place] [address] [phone] Urine NEGATIVE Negative 61 Urinalysis W/Microscopic 02/01/2010 [facility] Ua Color YELLOW Yellow [address] [place] [address] [phone] Appearance-Urine CLEAR Clear Specific Deshler-Ur 1.011 1.010-1.030 Esterase-Urine 1+ Abnormal Negative Nitrite NEGATIVE Negative Mgxasbtaiuci-Qd-LRH NEGATIVE Negative Protein-Urine NEGATIVE Negative PH-Urine 6.0 5-9 Blood-Urine 3+ Abnormal Negative Ketones-Urine NEGATIVE Negative Bilirubin-Ur NEGATIVE Negative Glucose-Urine NEGATIVE Negative WBC-Urine 1-3 0-5 RBC-Urine 10-15 Abnormal 0-2 Epith Cells-Ur MODERATE None Bacteria-Urine 2+ None Amorphous Sed-U TRACE None Urine Culture & 02/01/2010 [facility] Urine Culture NF1 [address] [place] [address] [phone] HCG () 01/11/2010 [facility] Specific [place] 1.006 Low 1.010-1 Urine Stat [address] [place] [address] [phone] Urine NEGATIVE Negative 63 Urinalysis W/Microscopic 01/11/2010 [facility] Ua Color YELLOW Yellow [address] [place] [address] [phone] Appearance-Urine CLEAR Clear Specific [place]-Ur 1.011 1.010-1.030 Esterase-Urine TRACE Abnormal Negative Nitrite NEGATIVE Negative Dwajstzsfhes-Kx-ASM NEGATIVE Negative Protein-Urine NEGATIVE Negative PH-Urine 6.5 5-9 Blood-Urine 3+ Abnormal Negative Ketones-Urine NEGATIVE Negative Bilirubin-Ur NEGATIVE Negative Glucose-Urine NEGATIVE Negative WBC-Urine 0-2 0-5 RBC-Urine TNTC Abnormal 0-2 Mucus Urine SMALL None Epith Cells-Ur FEW None Throat-Beta Strept 2009 [facility] Throat-Beta Strep POSAD [address] [place] [address] [phone] 1 SEE RESULT BELOW Name: SANDRA FELIZ : [address]: Silvano Garcia MD Acct: [id number] Unit: [id number] AGE: 32 Location: [facility] Re07/21/18 Dis: 07/23/18 SEX: F Status: DIS IN SPEC: [id number] JB: 07/22/[address]: Jose Davison MD REQ: [id number] RECD: 07/22/18 STATUS: CRUZITO MERCEDES DR: Sen Herbert [employer]EN [employer]UCER _ SOURCE: URINE SPDESC: ORDERED: Urine Culture Procedure Result Reported Site Urine Culture Final 07/23/18- 1214 ML No Growth (<1,000 CFU/mL) * ML - Main Lab . END OF REPORT DEPARTMENT OF PATHOLOGY, [address] [place] [address] Cesario Vera M.D. Director [facility] # [id number] 2 Because ethnic data is not always [...] 5 Kidney failure <15 (or dialysis) 3 Presumptive Positive Presumptive positive results are unconfirmed. 4 The urine specimen was tested at the listed cutoffs: Drug class test level (ng/mL) Amphetamines 500 Barbiturates 200 Benzodiazepine metabolites 200 Cocaine metabolites 150 Cannabinoids 50 Opiates 300 Pcp 25 Specimen was received without chain of custody. Results should be used for medical purposes only. 5 Therapeutic concentration: <50 ug/mL Toxic concentration: >120 ug/mL 6 <5.0 Negative 5.0 - 25.0 Indeterminate (Repeat testing recommended after 72 hours) >25.0 Positive Perimenopausal women can display HCG levels of up to 20 mIU/mL 7 [employer] Tender: [id number] 8 <5.0 Negative 5.0 - 25.0 Indeterminate (Repeat testing recommended after 72 hours) >25.0 Positive Perimenopausal women can display HCG levels of up to 20 mIU/mL 9 Because ethnic data is not always readily [...] 15-29 5 Kidney failure <15 (or dialysis) 10 Acute inflammation: >10.00 11 [facility] Severe Sepsis and Septic Shock Management Bundle Measure requires all lactic acids initially measuring >2.0 mmol/L be repeated. 12 SEE RESULT BELOW Name: SANDRA FELIZ : [address]: Lawanda Honeycutt MD Acct: [id number] Unit: [id number] AGE: 30 Location: [place] [address] Re06/12/16 Dis: 06/15/16 SEX: F Status: DIS Rox SPEC: [id number] JB: 06/12/16-[address] [facility] [address]: Curtis Almazan MD REQ: [id number] RECD: 06/12/16 STATUS: CRUZITO MERCEDES DR: Carlos Gray III, MD _ SOURCE: BLOOD,VENO SPDESC: ORDERED: Blood Cult Procedure Result Reported Site Aerobic Culture Bottle Final 06/17/16- 1312 ML No Growth Day 5 Anaerobic Culture Bottle Final 06/17/16- 1312 ML No Growth Day 5 * ML - MAIN LAB ([facility]) . END OF REPORT * ML=Testing performed at Main Lab DEPARTMENT OF PATHOLOGY, [address] [place] [address] Cesario Vera M.D. Director [facility] # [id number] 13 Because ethnic data is not always readily [...] 15-29 5 Kidney failure <15 (or dialysis) 14 Normal Range 180 to 914 Indeterminate Range 145 to 180 Deficient Range <145 15 SEE RESULT BELOW Name: SANDRA FELIZ : [address]: Randolph Ortiz MD Acct: [id number] Unit: [id number] AGE: 29 Location: [facility] Re11/13/15 SEX: F Status: DEP ER SPEC: [id number] JB: 11/13/[address] [facility] [address]: Randolph Ortiz MD REQ: [id number] RECD: 11/14/15 STATUS: CRUZITO MERCEDES DR: Carlos Gray III, MD _ SOURCE: URINE SPDESC: ORDERED: Urine Culture Procedure Result Reported Site Urine Culture Final 11/15/15- 0849 ML No growth of clinically significant organisms * ML - MAIN LAB ([facility]) . END OF REPORT * ML=Testing performed at Main Lab DEPARTMENT OF PATHOLOGY, [address] [place] [address] Cesario Vera M.D. Director [facility] # [id number] 16 [employer] Tender: [id number] JUDY AVILES The skein mercerizing machine operator and regulatory agencies both recommend that a throat culture for beta strep be performed if a Rapid Group A Strep assay yields a negative result. Therefore a culture will be automatically performed on all negative samples. 17 SEE RESULT BELOW Name: SANDRA FELIZ : [address]: Randolph Ortiz MD Acct: [id number] Unit: [id number] AGE: 29 Location: [facility] Re10/09/15 SEX: F Status: DEP ER SPEC: [id number] JB: 10/09/[address] [facility] [address]: Randolph Ortiz MD REQ: [id number] RECD: 10/10/15368 STATUS: CRUZITO MERCEDES DR: Carlos Gray III, MD _ SOURCE: THROAT SPDESC: ORDERED: Throat Beta Str Procedure Result Reported Site Throat Beta Strep Culture Final 10/12/15- 1150 ML Negative For Group A Beta Streptococcus * ML - MAIN LAB ([facility]) . END OF REPORT * ML=Testing performed at Main Lab DEPARTMENT OF PATHOLOGY, [address] [place] [address] Cesario Vera M.D. Director [facility] # [id number] 18 SEE RESULT BELOW Name: SANDRA FELIZ : [address]: Yudelka Hoang Acct: [id number] Unit: [id number] AGE: 29 Location: [facility] Re02/15/15 SEX: F Status: DEP ER SPEC: [id number] JB: 02/15/[address]: Yudelka Briceno DO REQ: [id number] RECD: 02/16/15 STATUS: CRUZITO MERCEDES DR: [facility] Carlos Gray III, MD _ SOURCE: URINE SPDESC: ORDERED: Urine Culture Procedure Result Verified Site Urine Culture Final 02/18/15- 823 ML No Growth Day 2 (<1,000 CFU/mL) * ML - MAIN LAB ([facility]) . END OF REPORT * ML=Testing performed at Main Lab DEPARTMENT OF PATHOLOGY, [address] [place] [address] Cesario Vera M.D. Director [facility] # [id number] 19 RUN DATE: 01/01/15 [facility] LAB LIVE PAGE 1 RUN TIME: 0445 [address] [place], [place] [address] Specimen Inquiry Name: SANDRA FELIZ : [address]: Uriel Cordero MD Acct: [id number] Unit: [id number] AGE: 29 Location: [facility] Re12/30/14 SEX: F Status: DEP ER SPEC: [id number] JB: 12/30/14-[address] [facility] [address]: Gsielle Bey NP REQ: [id number] RECD: 12/30/14-1322 STATUS: CRUZITO MERCEDES DR: Uriel Gray III, MD _ SOURCE: URINE SPDESC: ORDERED: Urine Culture Procedure Result Verified Site Urine Culture Final 01/01/15- 1139 ML No Growth Day 2 (<1,000 CFU/mL) * ML - MAIN LAB ([facility]) . END OF REPORT * ML=Testing performed at Main Lab DEPARTMENT OF PATHOLOGY, [facility] [address] [place], [place] [address] Cesario Vera M.D. Director [facility] # [id number] 20 RUN DATE: 03/02/14 [facility] LAB LIVE PAGE 1 RUN TIME: [address] [place] [address] Specimen Inquiry Name: SANDRA FELIZ : [address]: Robert Stewart MD Acct: [id number] Unit: [id number] AGE: 28 Location: [facility] Re02/27/14 SEX: F Status: DEP ER SPEC: [id number] JB: 02/27/[address] [facility] [address]: Robert Stewart MD REQ: [id number] RECD: 02/28/14 STATUS: CRUZITO MERCEDES DR: Carlos Gray III, MD _ SOURCE: URINE SPDESC: ORDERED: Urine Culture Procedure Result Verified Site Urine Culture Final 03/02/14- 927 ML Organism 1 KLEBSIELLA PNEUMONIAE [place] Count 10-25,000 (Moderate) CFU/ML Organism 2 NORMAL MARANDA [place] Count 1-10,000 (Few) CFU/ML 1. KLEBSIELLA PNEUMONIAE [...] performed at Main Lab DEPARTMENT OF PATHOLOGY, [facility] [address] [place], [place] [address] Cesario Vera M.D. Director [facility] # [id number] 21 RUN DATE: 11/26/13 [facility] LAB LIVE PAGE 1 RUN TIME: 902 [facility] [employer] [place], [place] [address] Specimen Inquiry Name: SANDRA FELIZ : [address]: Lilia Jolly MD Acct: [id number] Unit: [id number] AGE: 27 Location: [facility] Re11/23/13 SEX: F Status: DEP ER SPEC: [id number] JB: 11/23/13-[address] [facility] [address]: Lilia Jolly MD REQ: [id number] RECD: 11/24/13-110 STATUS: CRUZITO MERCEDES DR: Carlos Gray III, MD _ SOURCE: URINE SPDESC: ORDERED: Urine Culture Procedure Result Verified Site Urine Culture Final 11/26/13- 901 ML Organism 1 NORMAL MARANDA [place] Count 10-25,000 (Moderate) CFU/ML END OF REPORT * ML=Testing performed at Main Lab DEPARTMENT OF PATHOLOGY, [facility] [address] [place], [place] [address] Cesario Vera M.D. Director [facility] Permit #[id number] 22 RUN DATE: 08/20/13 [facility] LAB LIVE PAGE 1 RUN TIME: 817 [facility] [employer] [place], [place] [address] Specimen Inquiry Name: SANDRA FELIZ: [address]: Robert Stewart MD Acct: [id number] Unit: [id number] AGE: 27 Location: [facility] Re08/16/13 SEX: F Status: REG ER SPEC: [id number] JB: 08/16/13-[address] [facility] [address]: Giselle Bey NP REQ: [id number] RECD: 08/17/13 STATUS: CRUZITO MERCEDES DR: Robert [...] performed at Main Lab DEPARTMENT OF PATHOLOGY, [facility] [address] [place] [address] Cesario Vera M.D. Director [facility] Permit #[id number] RUN DATE: 08/20/13 [facility] LAB LIVE PAGE 2 RUN TIME: 08 [facility] [employer] [place], [place] [address] Specimen Inquiry Patient: SANDRA FELIZ [id number] (Continued) Specimen: [id number] Collected: 08/16/13-2099 Received: 08/17/13-1047 (Continued) Procedure Result [...] is requested. Contact the Microbiology Department at [phone]. TEST LIMITATIONS: As with all diagnostic procedures, [...] performed at Main Lab DEPARTMENT OF PATHOLOGY, [address] [place] [address] Cesario Vera M.D. Director [facility] Permit #[id number] 23 RUN DATE: 08/18/13 [facility] LAB LIVE PAGE 1 RUN TIME: [address] [place] [address] Specimen Inquiry Name: SANDRA FELIZ : [address]: Robert Stewart MD Acct: [id number] Unit: [id number] AGE: 27 Location: [facility] Re08/16/13 SEX: F Status: REG ER SPEC: [id number] JB: 08/16/13-[address] [facility] [address]: Giselle Bey NP REQ: [id number] RECD: 08/17/13 STATUS: RES OTHR DR: Robert [...] is requested. Contact the Microbiology Department at [phone]. TEST LIMITATIONS: As with all diagnostic procedures, the results obtained should be used in conjunction with other clinical CONTINUED ON NEXT PAGE * ML=Testing performed at Main Lab DEPARTMENT OF PATHOLOGY, [facility] [address] [place] [address] Cesario Vrea M.D. Director [facility] Permit #[id number] RUN DATE: 08/18/13 [facility] LAB LIVE PAGE 2 RUN TIME: 433 [facility] [employer] [place], [place] [address] Specimen Inquiry Patient: LALITHATIFF EVANSSANDRA [id number] (Continued) Specimen: [id number] Collected: 08/16/13 Received: 08/17/13 (Continued) Procedure Result Verified Site O P: Giardia/Cryptospor Screen Final (continued) 08/18/131414 information available the physician. Negative results can [...] performed at Main Lab DEPARTMENT OF PATHOLOGY, [address] [place] [address] Cesario Vera M.D. Director [facility] Permit #[id number] 24 RUN DATE: 08/20/13 [facility] LAB LIVE PAGE 1 RUN TIME: [address] [place] [address] Specimen Inquiry Name: SANDRA FELIZ : [address]: Robert Stewart MD Acct: [id number] Unit: [id number] AGE: 27 Location: [facility] Re08/16/13 SEX: F Status: REG ER SPEC: [id number] JB: 08/16/[address] [facility] [address]: Giselle Bey NP REQ: [id number] RECD: 08/17/13260 STATUS: CRUZITO MERCEDES DR: Robert Gray III, MD _ SOURCE: URINE SPDESC: ORDERED: JEFF/Chlam RNA Procedure Result Verified Site Chlamydia Trachomatis [...] performed at Main Lab DEPARTMENT OF PATHOLOGY, [facility] [address] [place], [place] [address] Cesario Vera M.D. Director [facility] Permit #[id number] RUN DATE: 08/20/13 [facility] LAB LIVE PAGE 2 RUN TIME: 0064 [facility] [employer] [place], [place] [address] Specimen Inquiry Patient: SANDRA FELIZ [id number] (Continued) Specimen: [id number] Collected: 08/16/13 Received: 08/17/13 (Continued) Procedure Result Verified Site GC (N. gonorrhoeae) RNA Final (continued) 08/20/13 5746 Performance characteristics for detecting C. trachomatis and N. gonorrhoeae are derived from high prevalence populations. Positive results in low prevalence populations should be interpreted carefully with the understanding that the likelihood of a false positive may be higher than a true positive. END OF REPORT * ML=Testing performed at Main Lab DEPARTMENT OF PATHOLOGY, [facility] [address] [place], [place] [address] Cesario Vera M.D. [facility] Permit #[id number] 25 RUN DATE: 08/19/13 [facility] LAB LIVE PAGE 1 RUN TIME: 1015 101 [employer] [place], [place] [address] Specimen Inquiry Name: SANDRA FELIZ : [address]: Robert Stewart MD Acct: [id number] Unit: [id number] AGE: 27 Location: [facility] Re08/16/13 SEX: F Status: REG ER SPEC: [id number] JB: 08/16/13-[address] [facility] [address]: Giselle Bey NP REQ: [id number] RECD: 08/17/13 STATUS: CRUZITO MERCEDES DR: Robert Gray III, MD _ SOURCE: URINE SPDESC: ORDERED: Urine Culture Procedure Result Verified Site Urine Culture Final 08/19/13- 1015 ML Organism 1 NORMAL MARANDA Ringoes Count >100,000 (Many) CFU/ML END OF REPORT * ML=Testing performed at Main Lab DEPARTMENT OF PATHOLOGY, [address] [place] [address] Cesario Vera M.D. Director [facility] Permit #[id number] 26 Because ethnic data is not always readily [...] 15-29 5 Kidney failure <15 (or dialysis) 27 Anion gap measurement may be of limited value in the presence of any alkalosis, especially in a combined acid base disorder. . 28 Because ethnic data is not always [...] 5 Kidney failure <15 (or dialysis) 29 Imm. NE 1 30 Anion gap measurement may be of limited value in the presence of any alkalosis, especially in a combined acid base disorder. . 31 A metabolite of Naproxen, O-desmethylnaproxen, has been shown to interfere with the Jendrassik-Haring method for measuring total bilirubin. Samples from patients who have taken Naproxen have shown spurious elevation in total bilirubin levels. 32 Because ethnic data is not always [...] 5 Kidney failure <15 (or dialysis) 33 Imm. NE 1 34 New Reference Range and Interpretation effective 07/09/2002 TnI (ng/ml) INTERPRETATION Less Than 0.06 ng/mL NOT SUPPORTIVE OF DIAGNOSIS OF [place] 0.06 - 0.50 ng/ml INDETERMINATE: SUGGEST SERIAL STUDIES IF CLINICALLY INDICATED. Greater than 0.5 ng/mL CONSISTENT WITH DIAGNOSIS OF [place] . 35 NEGATIVE FOR GROUP A BETA STREPTOCOCCUS 36 FINAL: NO GROWTH DAY 2 (<1,000 CFU/mL) 37 Anion gap measurement may be of limited value in the presence of any alkalosis, especially in a combined acid base disorder. . 38 Because ethnic data is not always readily [...] 15-29 5 Kidney failure <15 (or dialysis) 39 Neutrophilia % Lymphopenia % 40 Anion gap measurement may be of limited value in the presence of any alkalosis, especially in a combined acid base disorder. . 41 A metabolite of Naproxen, O-desmethylnaproxen, has been shown to interfere with the Jendrassik-Awilda method for measuring total bilirubin. Samples from patients who have taken Naproxen have shown spurious elevation in total bilirubin levels. 42 Because ethnic data is not always readily [...] 15-29 5 Kidney failure <15 (or dialysis) 43 * MALES: < 5.0 MIU/ML NON [...] by an alternate HCG method. . 44 ---- RUN DATE: 03/15/11 [facility] NMI LIVE PAGE 1 RUN TIME: 1303 Specimen Inquiry RUN USER: INTERFACE -- Name: SANDRA FELIZ Status: DIS Rox Re03/14/11 Age/Sex: 25/F Unit#: [id number] Location: 3PD : [birth year] -- Specimen: [id number] SOUT Spec Date: 03/14/[address]: Robert morgan MD Spec Type: SURGICAL P Received: 03/14/11-1408 Copies to: CYTOLOGY Carlos Cherry MD SPECIMEN [...] congested serosal surface and with stapled margin. Loaf Counter section, one cassette labelled 2. DIAGNOSIS 1) Right paratubal cyst, cystectomy: Paratubal cyst. 2) Appendix, appendectomy: A. Appendix with fecalith. B. No evidence of acute appendicitis. Signed Electronically by: MEHNAZ BHAGAT 03/15/11 1302 -- -- DEPARTMENT OF PATHOLOGY, [address] [place] [address] [facility] Permit #[id number] Cesario Vera M.D. Director Mehnaz Bhagat M.D. Fire Pilot Dir tico -- 45 MODERATE (1 TO 4/HPF) ABSENT FEW (LESS THAN 1/HPF) ABSENT 46 Anion gap measurement may be of limited value in the presence of any alkalosis, especially in a combined acid base disorder. . 47 A metabolite of Naproxen, O-desmethylnaproxen, has been shown to interfere with the Jendrassik-Awilda method for measuring total bilirubin. Samples from patients who have taken Naproxen have shown spurious elevation in total bilirubin levels. 48 Because ethnic data is not always readily [...] 15-29 5 Kidney failure <15 (or dialysis) 49 Recommended INR for Patients on Oral Anticoagulants Prophylaxis 2.0 - 3.0 Treatment of thrombosis 2.0 - 3.0 Prevention of embolism 2.0 - 3.0 Prevention of embolism from prosthetic heart valves 2.5 - 3.5 50 DIAGNOSIS,TREATMENT,AND THERAPY MUST BE BASED ON THE INR VALUE ALONE. 51 * MALES: < 5.0 MIU/ML NON FEMALES [...] confirmed by an alternate HCG method. . 52 FEW URIC ACID CRYSTALS OBSERVED 53 * MALES: < 5.0 MIU/ML NON FEMALES [...] confirmed by an alternate HCG method. . 54 RESULT: Results suggest past infection In most populations, at least 90% of the adult population will have been infected with EBV sometime in the past and therefore, will be positive for anti-VCA/IgG and anti-EBNA. Antibodies to EBNA develop 6-8 weeks after primary infection and remain present for life. Presence of VCA/IgM antibodies indicates recent primary infection with EBV. Test Performed by: [facility] Dpt of Lab Med and Pathology [address] [place] [id number] Store Loss Prevention Manager: Waylon R. Cockerill, III, M.D. 55 >100^>100,000 ORGANISMS/ML (MANY)^CCU 56 Anion gap measurement may be of limited value in the presence of any alkalosis, especially in a combined acid base disorder. . 57 Note change in reference range as of 05/26/08. The change was based on recommendations from the [employer]. 58 Please note change in reference range effective 08 . 59 A metabolite of Naproxen, O-desmethylnaproxen, has been shown to interfere with the Jendrassik-Awilda method for measuring total bilirubin. Samples from patients who have taken Naproxen have shown spurious elevation in total bilirubin levels. 60 Because ethnic data is not always readily [...] 15-29 5 Kidney failure <15 (or dialysis) 61 If is still suspected, please repeat test after 48 to 72 hours. . 62 SPECIMEN CONTAINS NORMAL URETHRAL OR PERINEAL MARANDA AND DOES NOT SUGGEST URINARY TRACT INFECTION 63 If is still suspected, please repeat test after 48 to 72 hours. . 64 POSITIVE FOR PRESUMPTIVE GROUP A BETA HEMOLYTIC STREP BY BACITRACIN DISC Procedures Date Code Description Status 12/29/2013 [id number] Colonoscopy Completed Encounters Type Date Location Provider Dx Diagnosis Office Visit 09/25/2018 [facility] Sen Herbert NP F33.9 Major depressive 10:20a Medicine - disorder, recurrent, Abbott unspecified F41.9 Anxiety disorder, unspecified G47.00 Insomnia, unspecified Office Visit 08/25/2018 10:40a [facility] Sen Herbert, J01.90 Acute sinusitis, Medicine - [employer] unspecified Abbott F33.9 Major depressive disorder, recurrent, unspecified F41.9 Anxiety disorder, unspecified M54.5 Low back pain Office Visit 07/29/2018 10:40a [facility] Internal Sen Keon, F33.9 Major depressive Medicine - [employer] disorder, Abbott recurrent, unspecified Office Visit 06/29/2018 10:20a [facility] Internal Sen Keon, F41.9 Anxiety disorder, Medicine - [employer] unspecified Abbott F33.9 Major depressive disorder, recurrent, unspecified M79.642 Pain in left hand Office Visit 05/28/2018 10:20a [facility] Internal Sen Keon, F41.9 Anxiety disorder, Medicine - [employer] unspecified Abbott F33.9 Major depressive disorder, recurrent, unspecified M25.511 Pain in right shoulder Office Visit 05/22/2018 2:00p [facility] Internal Tere M54.2 Cervicalgia Timothy Triplett M.D. Abbott Office Visit 04/27/2018 10:20a [facility] Internal Sen Keon, [employer] F41.9 Anxiety disorder, Medicine - unspecified Abbott F33.9 Major depressive disorder, recurrent, unspecified H92.03 Otalgia, bilateral Office Visit 03/30/2018 10:20a [facility] Internal Sen Keon, F41.9 Anxiety disorder, Medicine - [employer] unspecified Abbott F33.9 Major depressive disorder, recurrent, unspecified Office Visit 02/26/2018 10:20a [facility] Internal Sen Keon, F41.9 Anxiety disorder, Medicine - [employer] unspecified Abbott F33.9 Major depressive disorder, recurrent, unspecified Office Visit 01/27/2018 10:20a [facility] Internal Sen Keon, F41.9 Anxiety disorder, Medicine - [employer] unspecified Abbott F33.9 Major depressive disorder, recurrent, unspecified G47.00 Insomnia, unspecified B35.3 Tinea pedis Office Visit 12/22/2017 8:40a [facility] Internal Sen Keon, F41.9 Anxiety disorder, Medicine - [employer] unspecified Abbott F33.9 Major depressive disorder, recurrent, unspecified Office Visit 11/13/2017 10:20a [facility] Internal Sen Keon, F41.9 Anxiety disorder, Medicine - [employer] unspecified Abbott F33.9 Major depressive disorder, recurrent, unspecified Office Visit 10/13/2017 10:20a [facility] Internal Sen Keon, F41.9 Anxiety disorder, Medicine - [employer] unspecified Abbott F33.9 Major depressive disorder, recurrent, unspecified Office Visit 09/10/2017 9:20a [facility] Internal Sen Keon, F41.9 Anxiety disorder, Medicine - [employer] unspecified Abbott F33.9 Major depressive disorder, recurrent, unspecified L29.8 Other pruritus Office Visit 08/11/2017 10:40a [facility] Internal Sen Keon, J01.90 Acute sinusitis, Medicine - [employer] unspecified Abbott F41.9 Anxiety disorder, unspecified F43.21 Adjustment disorder with depressed mood M54.5 Low back pain Office Visit 07/10/2017 11:20a [facility] Internal Sen Keon, F41.9 Anxiety disorder, Medicine - [employer] unspecified Abbott F43.21 Adjustment disorder with depressed mood M54.5 Low back pain Office Visit 06/10/2017 10:40a [facility] Internal Sen Keon, F41.9 Anxiety disorder, Medicine - [employer] unspecified Abbott F43.21 Adjustment disorder with depressed mood G47.00 Insomnia, unspecified Office Visit 05/08/2017 4:00p [facility] Internal Sen Keon, F41.9 Anxiety disorder, Medicine - [employer] unspecified Abbott F43.21 Adjustment disorder with depressed mood Office Visit 03/27/2017 2:20p [facility] Internal Sen Keon, F41.9 Anxiety disorder, Medicine - [employer] unspecified Abbott F43.21 Adjustment disorder with depressed mood J01.90 Acute sinusitis, unspecified Office Visit 03/07/2017 10:20a [facility] Internal Sen Keon, F41.9 Anxiety disorder, Medicine - [employer] unspecified Abbott F43.21 Adjustment disorder with depressed mood G47.00 Insomnia, unspecified Office Visit 02/05/2017 10:40a [facility] Internal Sen Keon, F41.9 Anxiety disorder, Medicine - [employer] unspecified Abbott F43.21 Adjustment disorder with depressed mood Office Visit 01/08/2017 9:20a [facility] Internal Sen Keon, F41.9 Anxiety disorder, Medicine - [employer] unspecified Abbott Office Visit 12/11/2016 9:20a [facility] Internal Sen Keon, F41.3 Other mixed Medicine - [employer] anxiety disorders Abbott F43.21 Adjustment disorder with depressed mood Office Visit 11/13/2016 2:00p [facility] Internal Sen Herbert, F41.3 Other mixed Medicine - [employer] anxiety disorders Abbott F43.21 Adjustment disorder with depressed mood Office Visit 10/22/2016 2:20p [facility] Internal Carlos Olson J20.9 Acute bronchitis, Timothy Gray M.D. unspecified [place] Office Visit 10/11/2016 3:20p [facility] Internal Sen Herbert NP F43.21 Adjustment Medicine - disorder with Abbott depressed mood F41.3 Other mixed anxiety disorders Office Visit 06/17/2016 4:00p [facility] Internal Sen Herbert, R11.2 Nausea with Medicine - [employer] vomiting, Abbott unspecified A02.9 Salmonella infection, unspecified K50.90 Crohn's disease, unspecified, without complications Office Visit 06/15/2016 1:27p [facility] Melanie R10.31 Right lower Assoc,pc [place], [employer] quadrant pain Hospitalists R11.2 Nausea with vomiting, unspecified R19.7 Diarrhea, unspecified K50.90 Crohn's disease, unspecified, without complications Office Visit 06/12/2016 1:25p [facility] Mami Montano, R10.31 Right lower Assoc,pc N.P. quadrant pain Hospitalists R19.7 Diarrhea, unspecified R11.2 Nausea with vomiting, unspecified K50.90 Crohn's disease, unspecified, without complications Office Visit 05/15/2016 4:20p [facility] Internal Sen Herbert NP R53.83 Other fatigue Medicine - Abbott N92.6 Irregular menstruation, unspecified Office Visit 02/13/2016 2:40p [facility] Internal Carlos Olson H92.02 Otalgia, left ear Timothy Gray M.D. Abbott Office Visit 01/15/2016 5:20p [facility] Internal Carlos Olson J06.9 Acute upper Timothy Gray M.D. respiratory Abbott infection, unspecified Office Visit 10/13/2015 4:20p [facility] Internal Haylee Ashraf, J01.90 Acute sinusitis, Timothy Harden M.D. unspecified Abbott J20.9 Acute bronchitis, unspecified Office Visit 08/01/2015 1:30p [facility] Internal Robert Carlin, K20.9 Esophagitis, Medicine - [employer] unspecified Abbott R12 Heartburn Office Visit 01/25/2014 11:20a [facility] Internal Carlos Olson 555.1 Enteritis Large Medicine - Shai Gray Intestine Abbott Office Visit 09/06/2013 2:20p [facility] Internal Carlos Olson 784.1 Throat Pain Timothy - Shai Gray Abbott Office Visit 01/30/2012 2:45p Sports Medicine Gurwinder Boggs, 719.47 Pain Joint [facility] AT .[facility] [place] Office Visit 10/29/2011 2:20p [facility] Internal Carlos Olson 784.2 Swelling In Head Medicine - Shai Gray & Neck Abbott V06.1 Tiyomgwcph-Xwjsxgh-Ipmeohvl Combined (DTaP) 244.9 Hypothyroidism Other Unspec Office Visit 07/10/2011 3:40p DO Not Use Burr Sander AT Carlos Gray, 724.2 Lumbago Jose Alejandro Gibbons 244.9 Hypothyroidism Other Unspec Office Visit 06/28/2011 DO Not Use Carlos E. V04.81 Need For Prophylactic 9:20a Burr Sander RAJNI Gray M.D. Vaccination & [facility] Inoculation/Influenza 244.9 Hypothyroidism Other Unspec 553.20 Hernia Ventral Unspec 724.2 Lumbago Office Visit 05/14/2011 4:15p DO Not Use Burr Sander Kim Alfred, 724.2 Lumbago AT [facility] N.P. Office Visit 10/30/2010 3:00p DO Not Use Burr Sander Carlos Olson V70.3 Examination Other AT Jose Alejandro Gray M.D. Medical For Administrative Purpose Office Visit 08/15/2009 3:30p DO Not Use Burr Sander Carlos Olson 465.9 URI Upper AT Jose Alejandro Gray M.D. Respiratory Infections Acute Unspec Sites V70.3 Examination Other Medical For Administrative Purpose 592.9 Calculus Urinary Unspec Plan of Treatment Future Appointment(s):11/30/2018 10:20 am - Sen Herbert NP at [facility] Internal Medicine [facility]10/30/2018 - Sen Herbert NPF33.9 Major depressive disorder, recurrent, unspecifiedComments:Continue on current medications. Continue following with mental health.Follow up:1 kuyiyH65.9 Anxiety disorder, unspecifiedComments:You can continue taking 2mg xanax at night. If you occasionally need 1mg during the day for panic attacks that is OK, but try not to take it daily.
--- NOTE | 2018-11-02 16:40 | UC ---
Abdominal Pain Female HPI - HPI Summary HPI Summary: 32 year old female with h/o kidney stones 7 years ago, underwent lithotripsy however unsuccessful, patient without symptoms since, reports today with 2-3 days of increased pain, no fever, chills, no urniary symptoms but did not blood in urine past 24 hours. - History of Current Complaint Stated Complaint: URINARY COMPLAINT Time Seen by Provider: 11/02/18 16:34 Hx Obtained From: Patient Hx Last Menstrual Period: has mirena ?: No Onset/Duration: Sudden Onset, Lasting Days Severity Initially: Severe Severity Currently: Severe Pain Intensity: 9 Allergies/Adverse Reactions: Allergies Allergy/AdvReac Type Severity Reaction Status Date / Time amoxicillin Allergy Severe Swelling Verified 11/02/18 16:39 Of Face,Lips,& Throat erythromycin base Allergy Severe Swelling Verified 11/02/18 16:39 Of Face,Lips,& Throat Penicillins Allergy Severe Swelling Verified 11/02/18 16:39 Of Face,Lips,& Throat codeine [From Robitussin A-C] Allergy Mild scratchy Verified 11/02/18 16:39 throat guaifenesin Allergy Mild scratchy Verified 11/02/18 16:39 [From Robitussin A-C] throat ibuprofen Allergy See Comment Verified 11/02/18 16:39 morphine Allergy Hives Verified 11/02/18 16:39 azithromycin AdvReac Mild Nausea Verified 11/02/18 16:39 doxycycline AdvReac Abdominal Verified 11/02/18 16:39 Pain Home Medications: Home Medications ALPRAZolam TAB* [Xanax TAB*] 2 mg PO BID 11/02/18 [History Confirmed 11/02/18] Fluticasone NASAL SPRAY 50MCG* [Flonase NASAL SPRAY 50MCG*] 2 inh DAILY [History Confirmed 11/02/18] Venlafaxine TAB (NF) [Effexor TAB (NF)] 150 mg PO DAILY 11/02/18 [History Confirmed 11/02/18] PMH/Surg Hx/FS Hx/Imm Hx Previously Healthy: Yes - h/o nephrolithiasis - Surgical History Surgical History: Yes Surgery Procedure, Year, and Place: APPENDECTOMY, CYST ON URETHRA, left KIDNEY STONE, left Kidney ABLATION X 3 - Family History Known Family History: Positive: Cardiac Disease - maternal grandmother and grandfather, Hypertension - mother, Diabetes, Respiratory Disease - Social History Alcohol Use: None Substance Use Type: None Smoking Status (MU): Light Every Day Tobacco Smoker Type: Cigarettes Amount Used/How Often: 1/2 ppd Length of Time of Smoking/Using Tobacco: 10 Years Have You Smoked in the Last Year: Yes - Immunization History Most Recent Influenza Vaccination: 2014 Most Recent Tetanus Shot: 2009 Most Recent Pneumonia Vaccination: never Hx Tetanus, Diphtheria Vaccination: Yes Vaccination Up to Date: Yes Review of Systems All Other Systems Reviewed And Are Negative: Yes Constitutional: Positive: Negative Gastrointestinal: Positive: Abdominal Pain Genitourinary: Positive: Hematuria Is Patient Immunocompromised?: No Physical Exam Triage Information Reviewed: Yes Appearance: Well-Appearing, Well-Nourished, Pain Distress - mild to moderate Vital Signs: Initial Vital Signs Temp 97.1 F 11/02/18 16:37 Pulse 90 11/02/18 16:37 Resp 24 11/02/18 16:37 BP 135/95 11/02/18 16:37 Pulse Ox 98 11/02/18 16:37 Vital Signs Reviewed: Yes Eyes: Positive: Conjunctiva Clear Abdomen Description: Positive: Nontender, No Organomegaly, Soft, Bruit, CVA Tenderness (L). Negative: CVA Tenderness (R), Pulsatile Mass, Splenomegaly Bowel Sounds: Positive: Present Musculoskeletal Exam: Normal Neurological Exam: Normal Psychological Exam: Normal Diagnostics - Radiology No standard instances Radiology Interpretation Completed By: Radiologist Summary of Radiographic Findings: CT Abdomen and Pelvis Without Contrast. EXAM DATE/TIME: 11/02/2018 6:26 PM. CLINICAL HISTORY: 32 years old, female; Pain; Other: Lt flank pain; Prior surgery; Surgery date: 6+ months; Surgery type: Lt renal ablation 2011, [id number], cyst on. urethra 2004; Patient HX: Lt flank pain, hematuria, HX of lt sided stones 7 yrs. ago with litho; Additional info: L flank pain, h/o nephrolithiasis, multiple. TECHNIQUE: Axial computed tomography images of the abdomen and pelvis without contrast. All CT scans at this facility use at least one of these dose optimization. techniques: automated exposure control; mA and/or kV adjustment per patient. size ( includes targeted exams where dose is matched to clinical indication); or. iterative reconstruction. Coronal and sagittal reformatted images were created and reviewed. COMPARISON: A/P W CT ABD/PEL W 06/12/2016 4:50 PM. FINDINGS: Lower thorax: There is bibasilar subsegmental atelectasis or parenchymal. scarring. ABDOMEN: Liver: Normal. No mass. Gallbladder and bile ducts: Normal. No calcified stones. No ductal dilation. Pancreas: Normal. No ductal dilation. Spleen: Normal. No splenomegaly. Adrenals: Normal. No mass. Kidneys and ureters: There is nonobstructive bilateral nephrolithiasis. including a 9 mm calculus at the left ureteropelvic junction which is not. resulting in significant hydronephrosis. Stomach and bowel: Normal. No obstruction. No mucosal thickening. Appendix: There are likely postoperative changes of appendectomy. PELVIS: Bladder: Unremarkable as visualized. Reproductive: As previously seen, there is an IUD normally positioned in the. uterus. ABDOMEN and PELVIS: Intraperitoneal space: Normal. No free air. No significant fluid collection. Bones/joints: No acute fracture. No dislocation. Soft tissues: Unremarkable. Vasculature: Normal. No abdominal aortic aneurysm. Lymph nodes: Normal. No enlarged lymph nodes. IMPRESSION: There is nonobstructive bilateral nephrolithiasis including a 9 mm calculus at. the left ureteropelvic junction which is not resulting in significant. hydronephrosis. Re-Evaluation - Re-Evaluation First Eval Re-Evaluation Time: 18:40 Change: Improved - States pain improved after ketoralac. Denies nausea or vomiting. CT scan results were reviewed with patient. Abd Pain Female Course/Dx - Course Course Of Treatment: Abdominal CT ordered, toradol IM given with good relief. Patient signed out to VALDO Landers at 6:13. CT scan showed multiple bilateral kidney stones including a non-obstructing 9 mm stone in the left ureteropelvic junction not causing significant hydronephrosis. She had improvement in her pain with the ketoralac and is presently denying nausea or vomiting. With the trace leukocyte esterase as well as blood in the urine will start her on ciprofloxacin 500 mg BID x 7 days. First dose given in the clinic. She is recommended acetaminophen for pain management as she has history of Crohn's. She is to follow up with her urologist. Anticipatory guidance and warning symptoms were reviewed with the patient. Verbalizes understanding and agrees with POC. - Differential Dx/Diagnosis Differential Diagnosis: Diverticulitis, Renal Colic, Urinary Tract Infection Provider Diagnosis: Acute left flank pain, Bilateral nephrolithiasis Discharge - Sign-Out/Discharge Documenting (check all that apply): Patient Departure All imaging exams completed and their final reports reviewed: Yes - Discharge Plan Condition: Stable Disposition: HOME Patient Education Materials: Kidney Stones (ED) Referrals: Sen Herbert ANALYTICS LEADER [Primary Care Provider] - Additional Instructions: Your CT scan today showed multiple kidney stones in both kidneys including a 9 mm stone at the connection of the left kidney and ureter however it is not causing any obstruction at this time. The urine test showed a few white blood cells as well as blood in the urine therefore we will treat you with an antibiotic for a possible urinary tract infection. Take ciprofloxacin 500 mg 1 tab every 12 hours for 7 days. Push fluids. Take acetaminophen (Tylenol) according to directions as needed for pain. Follow up with your urologist. Call tomorrow for an appointment. Seek immediate medical attention in the emergency room if you develop fever greater than 100.5 F, shaking chills, worsening pain, persistent vomiting, or any worsening of symptoms. - Billing Disposition and Condition Condition: STABLE Disposition: Home
[2018-11-02] MEDS ORDERED: Ketorolac INJ* 30 MG/ML 1 ML VIAL IM ONE (16:51)
[2018-11-02] MEDS ORDERED: Ciprofloxacin TAB* 500 MG PO ONE (18:56)
[2018-11-02 19:13] VITALS: BP 131/96
== END 2018-11-02 19:20 | disposition home or self-care (01) ==
LOC: UCCORT 16:04
DX: N20.0 Calculus of kidney (principal); R10.9 Unspecified abdominal pain; K50.90 Crohn's disease, unspecified, without complications; F17.210 Nicotine dependence, cigarettes, uncomplicated; Z88.0 Allergy status to penicillin; Z88.1 Allergy status to other antibiotic agents; Z88.5 Allergy status to narcotic agent; Z88.8 Allergy status to other drugs, medicaments and biological substances; Z87.442 Personal history of urinary calculi
CPT/HCPCS: 74176; 81003; 84702; 87086; 96372; 99212; A9270-GY; G0463; J1885